=== PATIENT | male | born 1975 | race Two or more races ===

== ENCOUNTER 2021-03-12 07:44 | Emergency (ER) | payer MEDICAID, SELFPAY ==
[2021-03-12] VITALS (15 sets, daily range): BP systolic 138–189; BP diastolic 91–131; PULSE 52–112; RESP 16–20; TEMP 36.4–36.6; O2SAT 95–100; BMI 32.5
--- NOTE | 2021-03-12 | ECG_ITS ---
Test Reason : cp/sob Blood Pressure : / mmHG Vent. Rate : 119 BPM Atrial Rate : 119 BPM P-R Int : 154 ms QRS Dur : 088 ms QT Int : 320 ms P-R-T Axes : 062 022 088 degrees QTc Int : 450 ms Sinus tachycardia with occasional Premature ventricular complexes Biatrial enlargement T wave abnormality, consider lateral ischemia Abnormal ECG No previous ECGs available Referred By: Generic ED Physician Electronically Signed By:MOY SALDAÑA MD
--- NOTE | ~2021-03-12 | CT_ITS ---
EXAMINATION: CT ANGIOGRAM OF THE CHEST WITH AND WITHOUT CONTRAST (CT PULMONARY ANGIOGRAM FOR PE) CLINICAL INFORMATION: Reason for Exam SOB, elevated D-dimer COMPARISON: None TECHNIQUE: Prior to contrast administration, noncontrast localization images were obtained. Subsequently, multidetector volumetric imaging was performed from the thoracic inlet to below the diaphragms following the administration of 80 mL Omnipaque 350 intravenous contrast. No contrast reaction reported Sagittal, coronal, and MIP oblique sagittal reformatted images were obtained on the CT workstation, uploaded to PACS, and reviewed. This CT examination was performed using dose optimization techniques as appropriate, variously including the following: *Automated exposure control *Adjustment of mA and/or kV according to patient size (this includes techniques or standardized protocols for targeted exams where dose is matched to indication/reason for exam; i.e. extremities or head) *Use of iterative reconstruction technique Total exam dose-length product 442 mGy-cm FINDINGS: QUALITY OF STUDY/CONTRAST BOLUS: Satisfactory. PULMONARY ARTERIES: No central or segmental pulmonary emboli. THORACIC AORTA: No aneurysm or dissection. LUNG: The lungs are expanded with patchy groundglass attenuation changes in both dependent lower lobes, right middle lobe and lingular segments and slightly nodular groundglass densities in both upper lobes. No acute consolidation seen.. PLEURA: There is bilateral posterior pleural thickening.. MEDIASTINUM: Heart size is normal. Great vessels are normal caliber. There is no pericardial effusion. Central trachea and the bronchi widely patent. There are subcarinal ill-defined hypodense areas likely inflammatory lymph nodes similar lymph nodes are seen in the left para-aortic space which appear more matted. No evidence of septal bowing or right heart strain. CHEST WALL/AXILLA: There are small shotty axillary lymph nodes. OSSEOUS STRUCTURES: No aggressive lytic or sclerotic process seen. UPPER ABDOMEN: Visualized liver, spleen, pancreas and bilateral adrenal glands are unremarkable. No reflux of contrast into the hepatic veins to suggest elevated right heart pressures. CT/CT angio chest PE protocol IMPRESSION: No evidence of PE. No evidence of aortic dissection. Diffuse bilateral groundglass attenuation changes with nodules suggestive of inflammatory or infectious etiology. There are inflammatory matted lymph nodes in the subcarinal and left para-aortic space. There is bilateral posterior pleural thickening. VTE: negative.
--- NOTE | ~2021-03-12 | XR_ITS ---
EXAMINATION: XR CHEST CLINICAL INFORMATION: Cough, SOB. COMPARISON: Chest TECHNIQUE: Frontal view of the chest was obtained. FINDINGS: The lungs are well-expanded without acute pneumonic consolidation. There is increased bilateral parahilar markings likely interstitial edema or pneumonitis. The heart size is normal. There is increased pulmonary vascularity suggesting mild CHF. No gross bony abnormality seen. XR/XR chest 1V IMPRESSION: There is increased bilateral parahilar markings likely interstitial edema or pneumonitis.
--- NOTE | 2021-03-12 08:27 | ED_ITS ---
HPI - Chest Pain General Chief Complaint: Upper Respiratory Symptoms Stated Complaint: sob, chest pain Time Seen by Provider: 03/12/21 08:25 Source: patient Mode of arrival: ambulatory Limitations: no limitations History of Present Illness HPI narrative: This is a 45-year-old male with no known medical history prese nting to the emergency department with complaints of chest pain, palpitations, shortness of breath X 1 week and recent upper respiratory infection about a week ago. Patient tells me that since his cold went away he has been experiencing chest pain/tightness localized to the substernal region, it does not radiate, it is severe in nature. He also reports intermittent palpitations, he tells me he is unable to quantify how long these palpitations last, he tells me it varies. He also reports associated shortness of breath, and a dry cough. He tells me that he is recovering from a cold. Chest pain is worse with lying down, better sitting up. Patient has not taken anything for the symptoms. He is vaccinated against COVID-19. He denies weakness, nausea, vomiting, abdominal pain, vision changes, headache, fevers and chills. MD complaint: chest pain and chest heaviness Onset (ago): week(s) (1) Timing of current episode: episodic Prior episodes: No Onset: during rest Pain location: substernal Pain radiation: none Severity: severe Quality: tightness and heaviness Relieving factors: leaning forward Exacerbating factors: other (laying supine ) Context: recent illness Associated symptoms: dyspnea, palpitations and cough Treatment prior to arrival: none Related Data Allergies Allergy/AdvReac Type Severity Reaction Status Date / Time No Known Allergies Allergy Unverified 12/16/19 16:31 [No Known Allergies*] Review of Systems Review of Systems: Constitutional : No Weight loss, No Fever, No Chills ENT/Mouth :? No sore throat, No Rhinorrhea Eyes: No Eye Pain, No Swelling Cardiovascular : + Chest Pain, + SOB, no Dyspnea on Exertion, No Orthopnea, No Edema, + Palpitations Respiratory : + Cough, No Sputum Gastrointestinal : pos Nausea, No Vomiting, No Diarrhea, No abdominal Pain, No Hematochezia, No Melena Genitourinary : No Dysuria, No Urinary Frequency Musculoskeletal : No joint pain, No Myalgias, No Joint Swelling Skin : No Skin Lesions, No rash Neuro : No Weakness, No Numbness, No Dizziness, No Headache Psych : No Anxiety/Panic, No Depression All other systems reviewed and are negative Yes all other systems are reviewed and are negative [facility] Past Medical History Attestation statement: The following information was validated with the patient. Source: old records reviewed and nursing notes reviewed Social History Social History Advance Directives: No Advance Directives Information Provided: No Physical Exam Vital Signs: Vital Signs: Last Vital Signs Temp 97.6 F 03/12/21 12:06 Pulse 89 03/12/21 12:06 Resp 19 03/12/21 12:06 BP 182/122 H 03/12/21 12:06 Pulse Ox 97 03/12/21 12:06 BMI result Body Mass Index 32.5 Vital signs significant for hypertension, tachycardia. Appearance: Alert.? Oriented X3.? No acute distress.?Patient appears anxious Head: Normocephalic, atraumatic, no step-offs or deformities Eyes: Pupils equal, round and reactive to light.? ENT: Pharynx normal.? Neck: Normal inspection.? Neck supple.? CVS: + rapid rate regular rythem? Pulses normal.? Respiratory: No respiratory distress.? Breath sounds normal.? Abdomen: Soft and nontender.? Skin: Skin warm and dry.? Normal skin color.? Normal skin turgor.? Extremities: No lower extremity edema.? No calf ttp. 5/5 strength to bilateral upper and lower extremities Back: No midline tenderness, no C-spine tenderness, full range of motion, no CVA tenderness bilaterally Neuro: Oriented X 3.? No motor deficit.? No sensory deficit. Course Reevaluation(s) Reevaluation #1: CBC shows no leukocytosis, a slight anemia is noted. D-dimers noted to be slightly elevated, is CTA will be done to rule out pulmonary embolism. Patient's transaminases noted to be elevated slightly. Troponin 64.7, a 2nd troponin will be ordered at 12 noon. UA is clean. COVID negative. Urine toxicology pending I wiill give patient asa. Time: 09:45 Reevaluation #2: Patient urine toxicology positive for marijuana and cocaine. Time: 10:37 Reevaluation #3: Patient's troponin noted to still be elevated. I reached out to and discussed the case with him, he says this is likely peric arditis. He suggested giving 50 mg of indomethacin, adding inflammatory markers, and medicating with morphine. I have also ordered a cardiac echo at his request. I will put in a consult for Cardiology. I plan to admit this patient to the hospitalist team Time: 13:09 Additional Reevaluation(s): 1344 Due to the ground-glass opacities seen on CTA will give patient 1 g of Rocephin. Patient's CRP is also noted to be markedly elevated at 1.76. 1410 will be admitting patient. Pending echo and ESR MDM - Chest Pain MDM Narrative Medical decision making narrative: 36 45-year-old male no known medical history presents to the emergency department with intermittent chest pain, shortness of breath and dry cough x1 week. Patient reports that he had a ?cold ?about a week ago, and then the symptoms started. He tells me chest pain is better leaning forward, worse lying supine. Denies fevers or chills. No cardiac history. No family cardiac history. Upon physical examination there is a rapid regular rhythm noted, likely sinus tachycardia. Lungs are clear. Abdomen soft nontender nondistended. No focal neuro deficits. Plan at this time is to obtain basic labs, a D-dimer, troponin, UA, chest x-ray, COVID. Will continuously monitor his cardiac rhythm. He will be given Toradol for pain, and Ativan as he appears very anxious. I will rule out ACS, PE. I suspect that this is pericarditis. Medical Records Data Attestation: I reviewed the patient's medical records. Lab Data Attestation: I reviewed the patient's lab results. Result diagrams: 03/12/21 09:00 03/12/21 09:00 Labs: Lab Results 03/12/21 03/12/21 03/12/21 Range/Units 09:00 09:00 09:00 WBC 8.0 (4.8-10.8) X10*3/uL RBC 4.22 L (4.60-5.80) X10*6/uL Hgb 12.8 L (14.0-18.0) g/dl Hct 40.1 L (42.0-52.0) % MCV 95.0 (80.0-98.0) fL MCH 30.3 (27.0-33.0) pg MCHC 31.9 (31.0-36.0) g/dl RDW 13.2 (11.0-16.0) % Plt Count 254 (160-400) X10*3/uL MPV 10.5 (9.4-12.4) fL Immature Gran % (Auto) 0.2 (0.0-0.4) % Neut % (Auto) 66.8 (45-73) % Lymph % (Auto) 21.2 (20-40) % Garrard % (Auto) 6.5 (2-11) % Eos % (Auto) 4.4 H (0-4) % Baso % (Auto) 0.9 (0-2) % Lymph # (Auto) 1.7 (1.2-4.9) X10*3/uL Garrard # (Auto) 0.5 (0.1-1.2) X10*3/uL Eos # (Auto) 0.4 (0.0-0.4) X10*3/uL Baso # (Auto) 0.1 (0.0-0.2) X10*3/uL Abs Immat Gran (auto) 0.02 (0.00-0.03) X10*3/uL Absolute Neuts (auto) 5.4 (2.0-8.3) x10*3/uL Absolute Nucleated RBC 0.000 (0.0-0.012) X10*3/uL Nucleated RBC % (auto) 0.0 (0.0-0.2) /100WBC ESR 13 (0-15) MM/HR D-Dimer High Sensitivty NG/ML Sodium 142 (135-145) mmol/L Potassium 3.7 (3.3-5.1) mmol/L Chloride 106 (96-108) mmol/L Carbon Dioxide 29 (22-29) mmol/L Anion Gap 11 L (12-20) BUN 13 (9-16) mg/dL Creatinine 1.36 (0.5-1.4) mg/dL Estim Creat Clear Calc 89.2 Estimated GFR 57 Random Glucose 107 (60-115) mg/dL Calcium 9.4 (8.4-10.2) mg/dL Magnesium 1.9 (1.6-2.6) mg/dL Total Bilirubin 0.4 (0.0-1.0) mg/dL AST 69 H (5-37) U/L ALT 42 H (0-40) U/L Alkaline Phosphatase 100 (39-117) U/L Troponin I High Sens (<3.5-35.0) ng/L C-Reactive Protein 1.76 H (< or = 0.50) mg/dL Total Protein 6.6 (6.5-8.0) g/dL Albumin 3.8 (3.5-5.0) g/dL Urine Color Urine Appearance Urine pH (5.0-8.0) Ur Specific Wenham (1.005-1.025) Urine Protein (NEG-TRACE) MG/DL Urine Glucose (UA) (NEG) MG/DL Urine Ketones (NEG) MG/DL Urine Blood (NEG) Urine Nitrite (NEG) Ur Leukocyte Esterase (NEG) Urine Opiates Screen (Not Detect) Urine Fentanyl Screen (Not Detect) Ur Barbiturates Screen (Not Detect) Ur Phencyclidine Scrn (Not Detect) Ur Amphetamines Screen (Not Detect) U Benzodiazepines Scrn (Not Detect) Urine Cocaine Screen (Not Detect) U Marijuana (THC) Screen (Not Detect) COVID-19 (GALE) (Negative) COVID-19 Clin Com 03/12/21 03/12/21 03/12/21 Range/Units 09:01 09:01 09:01 WBC (4.8-10.8) X10*3/uL RBC (4.60-5.80) X10*6/uL Hgb (14.0-18.0) g/dl Hct (42.0-52.0) % MCV (80.0-98.0) fL MCH (27.0-33.0) pg MCHC (31.0-36.0) g/dl RDW (11.0-16.0) % Plt Count (160-400) X10*3/uL MPV (9.4-12.4) fL Immature Gran % (Auto) (0.0-0.4) % Neut % (Auto) (45-73) % Lymph % (Auto) (20-40) % Garrard % (Auto) (2-11) % Eos % (Auto) (0-4) % Baso % (Auto) (0-2) % Lymph # (Auto) (1.2-4.9) X10*3/uL Garrard # (Auto) (0.1-1.2) X10*3/uL Eos # (Auto) (0.0-0.4) X10*3/uL Baso # (Auto) (0.0-0.2) X10*3/uL Abs Immat Gran (auto) (0.00-0.03) X10*3/uL Absolute Neuts (auto) (2.0-8.3) x10*3/uL Absolute Nucleated RBC (0.0-0.012) X10*3/uL Nucleated RBC % (auto) (0.0-0.2) /100WBC ESR (0-15) MM/HR D-Dimer High Sensitivty 303 NG/ML Sodium (135-145) mmol/L Potassium (3.3-5.1) mmol/L Chloride (96-108) mmol/L Carbon Dioxide (22-29) mmol/L Anion Gap (12-20) BUN (9-16) mg/dL Creatinine (0.5-1.4) mg/dL Estim Creat Clear Calc Estimated GFR Random Glucose (60-115) mg/dL Calcium (8.4-10.2) mg/dL Magnesium (1.6-2.6) mg/dL Total Bilirubin (0.0-1.0) mg/dL AST (5-37) U/L ALT (0-40) U/L Alkaline Phosphatase (39-117) U/L Troponin I High Sens (<3.5-35.0) ng/L C-Reactive Protein (< or = 0.50) mg/dL Total Protein (6.5-8.0) g/dL Albumin (3.5-5.0) g/dL Urine Color STRAW Urine Appearance CLEAR Urine pH 6.0 (5.0-8.0) Ur Specific Wenham <= 1.005 (1.005-1.025) Urine Protein NEG (NEG-TRACE) MG/DL Urine Glucose (UA) NEG (NEG) MG/DL Urine Ketones NEG (NEG) MG/DL Urine Blood NEG (NEG) Urine Nitrite NEG (NEG) Ur Leukocyte Esterase NEG (NEG) Urine Opiates Screen (Not Detect) Urine Fentanyl Screen (Not Detect) Ur Barbiturates Screen (Not Detect) Ur Phencyclidine Scrn (Not Detect) Ur Amphetamines Screen (Not Detect) U Benzodiazepines Scrn (Not Detect) Urine Cocaine Screen (Not Detect) U Marijuana (THC) Screen (Not Detect) COVID-19 (GALE) Negative (Negative) COVID-19 Clin Com See Note 03/12/21 03/12/21 03/12/21 Range/Units 09:06 10:13 12:24 WBC (4.8-10.8) X10*3/uL RBC (4.60-5.80) X10*6/uL Hgb (14.0-18.0) g/dl Hct (42.0-52.0) % MCV (80.0-98.0) fL MCH (27.0-33.0) pg MCHC (31.0-36.0) g/dl RDW (11.0-16.0) % Plt Count (160-400) X10*3/uL MPV (9.4-12.4) fL Immature Gran % (Auto) (0.0-0.4) % Neut % (Auto) (45-73) % Lymph % (Auto) (20-40) % Garrard % (Auto) (2-11) % Eos % (Auto) (0-4) % Baso % (Auto) (0-2) % Lymph # (Auto) (1.2-4.9) X10*3/uL Garrard # (Auto) (0.1-1.2) X10*3/uL Eos # (Auto) (0.0-0.4) X10*3/uL Baso # (Auto) (0.0-0.2) X10*3/uL Abs Immat Gran (auto) (0.00-0.03) X10*3/uL Absolute Neuts (auto) (2.0-8.3) x10*3/uL Absolute Nucleated RBC (0.0-0.012) X10*3/uL Nucleated RBC % (auto) (0.0-0.2) /100WBC ESR (0-15) MM/HR D-Dimer High Sensitivty NG/ML Sodium (135-145) mmol/L Potassium (3.3-5.1) mmol/L Chloride (96-108) mmol/L Carbon Dioxide (22-29) mmol/L Anion Gap (12-20) BUN (9-16) mg/dL Creatinine (0.5-1.4) mg/dL Estim Creat Clear Calc Estimated GFR Random Glucose (60-115) mg/dL Calcium (8.4-10.2) mg/dL Magnesium (1.6-2.6) mg/dL Total Bilirubin (0.0-1.0) mg/dL AST (5-37) U/L ALT (0-40) U/L Alkaline Phosphatase (39-117) U/L Troponin I High Sens 64.7 H 69.4 H (<3.5-35.0) ng/L C-Reactive Protein (< or = 0.50) mg/dL Total Protein (6.5-8.0) g/dL Albumin (3.5-5.0) g/dL Urine Color Urine Appearance Urine pH (5.0-8.0) Ur Specific Wenham (1.005-1.025) Urine Protein (NEG-TRACE) MG/DL Urine Glucose (UA) (NEG) MG/DL Urine Ketones (NEG) MG/DL Urine Blood (NEG) Urine Nitrite (NEG) Ur Leukocyte Esterase (NEG) Urine Opiates Screen Not Detected (Not Detect) Urine Fentanyl Screen Not Detected (Not Detect) Ur Barbiturates Screen Not Detected (Not Detect) Ur Phencyclidine Scrn Not Detected (Not Detect) Ur Amphetamines Screen Not Detected (Not Detect) U Benzodiazepines Scrn Not Detected (Not Detect) Urine Cocaine Screen POSITIVE H (Not Detect) U Marijuana (THC) Screen POSITIVE H (Not Detect) COVID-19 ([facility]ALE) (Negative) COVID-19 Clin Com Imaging Data Chest x-ray: Attestation: I personally reviewed and interpreted this imaging study as follows: Radiologist's impression: FINDINGS: The lungs are well-expanded without acute pneumonic consolidation. There is increased bilateral parahilar markings likely interstitial edema or pneumonitis. The heart size is normal. There is increased pulmonary vascularity suggesting mild CHF. No gross bony abnormality seen. XR/XR chest 1V IMPRESSION: There is increased bilateral parahilar markings likely interstitial edema or pneumonitis. ? CTA: Attestation: I personally reviewed and interpreted this imaging study as follows: Radiologist's impression: CT/CT angio chest PE protocol IMPRESSION: No evidence of PE. No evidence of aortic dissection. ? Diffuse bilateral groundglass attenuation changes with nodules suggestive of inflammatory or infectious etiology. ? There are inflammatory matted lymph nodes in the subcarinal and left para-aortic space. There is bilateral posterior pleural thickening. ? VTE: negative. ECG Data ECG #1: Attestation: I personally reviewed and interpreted this ECG as follows: ECG interpretation date: 03/12/21 ECG interpretation time: 07:50 Prior ECG tracings: available for review Interpretation: Ventricular rate of 119, AK normal, QRS normal, QT/QTC normal EKG shows a sinus tachycardia with occasional PVCs. No ST elevations or inversions concerning for ischemia. No acute ischemia. No previous EKGs to compare with. Critical Care Time Critical Care Time Critical Care Time: Yes Total Critical Care Time: 45 Attestation: I attest to this time spent taking care of the patient, reviewing labs, imaging, discussing this case with attending, discussing case with Cardiology, coming up with a treatment plan, physical exam and history taking. Discharge Plan Discharge Clinical Impression: Pericarditis, Elevated troponin Patient Disposition: Admitted As Inpatient Instructions: Acute Pericarditis (ED) Additional Instructions: Take your medications as prescribed. Follow-up with your primary care provider this week. Return to the emergency department with new or worsening symptoms. In case of emergency call 911 Referrals: Lopez Dominguez MD [Primary Care Provider] - 2 days Stand Alone Forms: Work/School Release
[2021-03-12] MEDS: Ketorolac Tromethamine 30 MG/ML VIAL IM (08:47)
[2021-03-12] MEDS: LORazepam 0.5 MG TABLET PO (08:47)
[2021-03-12 09:06] LABS: MANUAL DIFF FLAG NO
[2021-03-12 09:11] LABS: Appearance Urine CLEAR; Color Urine STRAW; Glucose Urine UA NEG (NEG); Leukocyte Esterase Urine NEG (NEG); Nitrite Urine NEG (NEG); Specific Gravity - Urine <= 1.005 (1.005-1.025); Urine Blood NEG (NEG); Urine Ketones NEG (NEG); Urine Protein NEG (NEG-TRACE)
[2021-03-12 09:14] LABS: Basophils Absolute Auto 0.1 X10*3/uL (0.0-0.2); Basophils Percent Auto 0.9 % (0-2); Eosinophils Absolute Auto 0.4 X10*3/uL (0.0-0.4); Eosinophils Percent Auto 4.4 % (0-4); Hematocrit 40.1 % (42.0-52.0); Hemoglobin 12.8 g/dl (14.0-18.0); Imm Gran Abs Auto 0.02 X10*3/uL (0.00-0.03); Imm Gran Pct Auto 0.2 % (0.0-0.4); Lymphocytes Absolute Auto 1.7 X10*3/uL (1.2-4.9); Lymphocytes Percent Auto 21.2 % (20-40); Mean Corpuscular HGB Conc 31.9 g/dl (31.0-36.0); Mean Corpuscular Hemoglobin 30.3 pg (27.0-33.0); Mean Platelet Volume 10.5 fL (9.4-12.4); Monocytes Absolute Auto 0.5 X10*3/uL (0.1-1.2); Monocytes Percent Auto 6.5 % (2-11); Neutrophils Absolute Auto 5.4 x10*3/uL (2.0-8.3); Neutrophils Percent Auto 66.8 % (45-73); Platelet Count 254 X10*3/uL (160-400); Red Blood Count 4.22 X10*6/uL (4.60-5.80); Red Cell Distribution Width 13.2 % (11.0-16.0)
[2021-03-12 09:17] LABS: D Dimer High Sensitivity 303 NG/ML
[2021-03-12 09:25] LABS: Alanine Aminotransferase 42 U/L (0-40); Albumin Level 3.8 g/dL (3.5-5.0); Alkaline Phosphatase 100 U/L (39-117); Anion Gap 11 (12-20); Aspartate Amino Transferase 69 U/L (5-37); Bilirubin Total 0.4 mg/dL (0.0-1.0); Blood Urea Nitrogen 13 mg/dL (9-16); Calcium 9.4 mg/dL (8.4-10.2); Carbon Dioxide 29 mmol/L (22-29); Chloride 106 mmol/L (96-108); Creatinine Clr Calc Pharmacy 89.2; Estimated Glomerular Filt Rate 57; Glucose Random 107 mg/dL (60-115); Magnesium 1.9 mg/dL (1.6-2.6); Potassium 3.7 mmol/L (3.3-5.1); Sodium 142 mmol/L (135-145); Total Protein 6.6 g/dL (6.5-8.0)
[2021-03-12 09:29] LABS: COVID-19 Test Negative (Negative); IDNOW Serial# 9DD0AD1C
[2021-03-12 09:32] LABS: Troponin-I High Sensitivity 64.7 ng/L (<3.5-35.0)
[2021-03-12 10:34] LABS: Amphetamine Screen Urine Not Detected (Not Detect); Barbiturates, Urine Not Detected (Not Detect); Benzodiazepines Screen Urine Not Detected (Not Detect); Cannabinoid Screen Urine POSITIVE (Not Detect); Cocaine Screen Urine POSITIVE (Not Detect); Fentanyl, urine Not Detected (Not Detect); Opiate Screen Urine Not Detected (Not Detect); Phencyclidine Screen Urine Not Detected (Not Detect)
[2021-03-12] MEDS: iohexoL 350 MG/ML 75 ML INFUS..BTL 65 ML IV (11:33)
[2021-03-12] MEDS: Aspirin Enteric Coated 325 MG TABLET.DR PO (12:02)
[2021-03-12 12:53] LABS: Troponin-I High Sensitivity 69.4 ng/L (<3.5-35.0)
--- NOTE | 2021-03-12 13:05 | CA_ITS ---
Transthoracic Echocardiogram Patient (Last, First, Middle): Kun Ferrara G Gender: Male Date of : 1975 Age: 45 Procedure Date: 03/12/2021 Procedure Type: Transthoracic E[place]ocardiogram [place] [facility] [place]: 182.88 cm Weight: 108.86 kg BSA: 2.30 m2 Heart Rate: bpm BP: 182 / 122 mmHg It Support Engineer: Referring MD: Krupa GUSTAFSON Spray Stainer: Petr Gaxiola MD Symptoms: Chest pain, SOB Study Quality: Good ECG Rhythm: Sinus Conclusions: - 1. Severely reduced LV systolic function with LVEF of 20-25% with pseudonormal filling pattern with mild LVH with akinesis of the inferior wall 2. Moderately dilated left atrium 3. Normal calculated RV systolic pressure with elevated right atrial pressures 4. No gross pericardial effusion Findings Left Ventricle Normal left ventricular cavity size. There is mildly increased left ventricular wall thickness. The left ventricular systolic function is severely decreased. The visually estimated ejection fraction is between 20 25%. Spectral Doppler is indicative of a pseudonormal filling pattern. E/E prime ratio is between 8 and 15 consistent with indeterminate filling pressures. Wall Motion Rest Echo Findings The anterior wall, entire septum, entire lateral wall, and apex segment are hypokinetic. The inferior wall is akinetic. Right Ventricle Moderately increased right ventricular cavity size. There is borderline right ventricular systolic function. Atria The left atrium is moderately dilated. Interatrial shunt cannot be excluded. The right atrium is mildly dilated. Aortic Valve Normal aortic valve structure and function. There is no aortic valve stenosis. There is no aortic valve regurgitation. Mitral Valve Normal mitral valve structure and function. There is trace mitral valve regurgitation. There is no mitral valve stenosis. Pulmonic Valve The pulmonic valve was not well visualized. Prior Study Comparison No prior study available for comparison. Measurements 2D Linear Measurements IVSd: 1.25 0.6-0.9/0.6-1.0 cm LVIDd: 6.01 3.9-5.3/4.2-5.9 cm LVIDd Index: 2.61 2.4-3.2/2.2-3.1 cm/m2 LVIDs: 5.28 2.0-3.6 cm LVPWd: 1.30 0.7-1.1 cm Ao Root: 3.30 2.1-3.5 cm LA Diam: 4.90 2.7-3.8/3.0-4.0 cm LAIDs Index: 2.13 1.5-2.3 cm/m2 LV Mass: 426.55 67-162/88-224 g LV Mass Index: 185.45 43-95/49-115 g/m2 LVOT Diam: 2.30 3.0+(-)1.3 cm 2D Systolic Function EF 4C: 21.20 >55% EF 2C: 27.00 >55% EF BiP: 24.00 >55% Mitral Valve MV Pk E: 0.96 MV Decel Time: 106.00 E'Lateral: 9.25 E'Medial: 8.49 E/E' Med: 11.40 E/E' Lat: 10.40 PHT: 31.00 MVA PHT: 7.10 Decel [place]: 9.09 Aortic Valve AoV Pk Shaw: 1.06 AoV Mn Shaw: 0.77 AoV VTI: 0.18 AoV Pk Grad: 4.00 Aov Mn Grad: 3.00 RIZWAN Cont.VTI: 1.94 LVOT LVOT Pk Shaw: 0.55 LVOT Mn Shaw: 0.35 LVOT VTI: 0.08 LVOT Pk Grad: 1.00 LVOT Mn Grad: 1.00 LVOT Diam: 2.30 LVOT Area: 4.15 Diastolic Function MV Pk E: 0.96 E'Medial: 8.49 E/E' Med: 11.40 E' Laterial: 9.25 E/E' Lat: 10.40 Right Ventricle TAPSE (mm): 29.00 TVS' Shaw: 11.00 Tricuspid Valve TR Pk Shaw: 1.80 TR Pk Grad: 13.00 RA Press: 8.00 RVSP: 21.00 Great Vessels Aorta Ao Root-2D: 3.30 2.0-3.7 cm Ao Asc: 3.70 2.1-3.4 cm Pulmonary Valve PV Pk Shaw: 1.05 Peak PV Grad: 4.00 Updated in Other Vendor System with Status of Final Petr Gaxiola MD electronically signed on 03/12/2021 6:28:05 PM with status of Final
[2021-03-12 13:30] LABS: C Reactive Protein 1.76 mg/dL (< or = 0.50)
[2021-03-12 14:01] LABS: Erythrocyte Sedimentation Rate 13 MM/HR (0-15)
--- NOTE | 2021-03-12 14:58 | PM.IMHP ---
History of Present Illness Date of Service: 03/12/21 Chief Complaint: chest pain, sob 45M presented with chest pain and sob. patient had been feeling well until about 2 weeks ptp. at that time he developed upper respiratory symptoms, congestion, cough. he was tested for covid and was negative (he is vaccinated). patient then started to notice sob worse on exertion, +orthopnea. he also had a positional midsternal chest tightness, non radiating, worse on lying down, improved by sitting. symptoms progressed so he came to ED. patient denies fever, chills, n/v/d. Review of Systems Review of Systems: Constitutional: Denies fever, denies Chills Eyes: denies blurry vision ENT: denies sore throat CVS: chest pain Respiratory: dyspnea GI: no abdominal pain : denies dysuria MSK: denies neck pain Skin: denies rash Neuro: denies specific motor weakness Psych: denies suicidal ideation Endocrine: denies heat/cold intolerance Hematologic: denies easy bleeding Allergy: denies hives PMFSH Pertinent family history: denies CAD, DM in family Social History (Updated 03/12/21 @ 15:02 by Juan F Loomis MD) Alcohol intake: current Patient Tobacco Use Status: Current everyday Tobacco user Substance Use Type: Crack/Cocaine and Marijuana Advance Directives: No Advance Directives Information Provided: No Meds Allergies Allergy/AdvReac Type Severity Reaction Status Date / Time No Known Allergies Allergy Unverified 12/16/19 16:31 [No Known Allergies*] Active Medications: Current Medications Pharmacy Consult (Consult Rx Perform Med Rec) 1 each MISCELLANE ONCE PRN PRN Reason: Consult order Physical Exam Vital Signs and Narrative: Vital Signs: Last Vital Signs Temp 97.6 F 03/12/21 12:06 Pulse 89 03/12/21 12:06 Resp 19 03/12/21 12:06 BP 182/122 H 03/12/21 12:06 Pulse Ox 97 03/12/21 12:06 BMI result Body Mass Index 32.5 General: no acute distress HEENT: atraumatic Neck: normal to visual inspection CVS: S1, S2, RRR Resp: CTA bilateral Chest: non tender GI: soft, non tender, non distended : no CVA tenderness Skin: no rashes Extremities: no edema Neuro: Oriented X3, grossly intact Psych: cooperative Results Labs CBC and Chem 7: 03/12/21 09:00 03/12/21 09:00 Labs: Laboratory Results - last 24 hr 03/12/21 03/12/21 03/12/21 09:00 09:00 09:00 MCV 95.0 MCH 30.3 MCHC 31.9 RDW 13.2 Plt Count 254 MPV 10.5 Immature Gran % (Auto) 0.2 Neut % (Auto) 66.8 Lymph % (Auto) 21.2 [place] % (Auto) 6.5 Eos % (Auto) 4.4 H Baso % (Auto) 0.9 Lymph # (Auto) 1.7 [place] # (Auto) 0.5 Eos # (Auto) 0.4 Baso # (Auto) 0.1 Abs Immat Gran (auto) 0.02 Absolute Neuts (auto) 5.4 Absolute Nucleated RBC 0.000 Nucleated RBC % (auto) 0.0 ESR 13 D-Dimer High Sensitivty Anion Gap 11 L Creatinine 1.36 Estim Creat Clear Calc 89.2 Estimated GFR 57 Random Glucose 107 Calcium 9.4 Magnesium 1.9 Total Bilirubin 0.4 AST 69 H ALT 42 H Alkaline Phosphatase 100 Troponin I High Sens C-Reactive Protein 1.76 H Total Protein 6.6 Albumin 3.8 Urine Color Urine Appearance Urine pH Ur Specific [place] Urine Protein Urine Glucose (UA) Urine Ketones Urine Blood Urine Nitrite Ur Leukocyte Esterase Urine Opiates Screen Urine Fentanyl Screen Ur Barbiturates Screen Ur Phencyclidine Scrn Ur Amphetamines Screen U Benzodiazepines Scrn Urine Cocaine Screen U Marijuana (THC) Screen COVID-19 ([facility]) COVID-19 Clin Com 03/12/21 03/12/21 03/12/21 09:01 09:01 09:01 MCV MCH MCHC RDW Plt Count MPV Immature Gran % (Auto) Neut % (Auto) Lymph % (Auto) [place] % (Auto) Eos % (Auto) Baso % (Auto) Lymph # (Auto) [place] # (Auto) Eos # (Auto) Baso # (Auto) Abs Immat Gran (auto) Absolute Neuts (auto) Absolute Nucleated RBC Nucleated RBC % (auto) ESR D-Dimer High Sensitivty 303 Anion Gap Creatinine Estim Creat Clear Calc Estimated GFR Random Glucose Calcium Magnesium Total Bilirubin AST ALT Alkaline Phosphatase Troponin I High Sens C-Reactive Protein Total Protein Albumin Urine Color STRAW Urine Appearance CLEAR Urine pH 6.0 Ur Specific [place] <= 1.005 Urine Protein NEG Urine Glucose (UA) NEG Urine Ketones NEG Urine Blood NEG Urine Nitrite NEG Ur Leukocyte Esterase NEG Urine Opiates Screen Urine Fentanyl Screen Ur Barbiturates Screen Ur Phencyclidine Scrn Ur Amphetamines Screen U Benzodiazepines Scrn Urine Cocaine Screen U Marijuana (THC) Screen COVID-19 ([facility]) Negative COVID-19 Clin Com See Note 03/12/21 03/12/21 03/12/21 09:06 10:13 12:24 MCV MCH MCHC RDW Plt Count MPV Immature Gran % (Auto) Neut % (Auto) Lymph % (Auto) [place] % (Auto) Eos % (Auto) Baso % (Auto) Lymph # (Auto) [place] # (Auto) Eos # (Auto) Baso # (Auto) Abs Immat Gran (auto) Absolute Neuts (auto) Absolute Nucleated RBC Nucleated RBC % (auto) ESR D-Dimer High Sensitivty Anion Gap Creatinine Estim Creat Clear Calc Estimated GFR Random Glucose Calcium Magnesium Total Bilirubin AST ALT Alkaline Phosphatase Troponin I High Sens 64.7 H 69.4 H C-Reactive Protein Total Protein Albumin Urine Color Urine Appearance Urine pH Ur Specific [place] Urine Protein Urine Glucose (UA) Urine Ketones Urine Blood Urine Nitrite Ur Leukocyte Esterase Urine Opiates Screen Not Detected Urine Fentanyl Screen Not Detected Ur Barbiturates Screen Not Detected Ur Phencyclidine Scrn Not Detected Ur Amphetamines Screen Not Detected U Benzodiazepines Scrn Not Detected Urine Cocaine Screen POSITIVE H U Marijuana (THC) Screen POSITIVE H COVID-19 ([facility]) COVID-19 Clin Com Imaging Radiologist's Impressions: Impressions Chest X-Ray 03/12/21 08:44 IMPRESSION: There is increased bilateral parahilar markings likely interstitial edema or pneumonitis. Chest CTA 03/12/21 11:30 IMPRESSION: No evidence of PE. No evidence of aortic dissection. Diffuse bilateral groundglass attenuation changes with nodules suggestive of inflammatory or infectious etiology. There are inflammatory matted lymph nodes in the subcarinal and left para-aortic space. There is bilateral posterior pleural thickening. VTE: negative. Assessment and Plan (1) Pericarditis: Status: Acute 45M presented with chest pain and sob pericarditis with dilated cardiomyopathy follow up official echo report cardio eval indocin, colchicine gi prophylaxis smoking, cocaine cessation Quality Stroke Does the patient have a stroke diagnosis?: No VTE Prior VTE?: No VTE Risk Level:: Medical - moderate - high VTE Device Contraindication: Treatment Not Indicated VTE Drug Contraindication: N/A - Med Ordered
[2021-03-12] MEDS: cefTRIAXone sodium 1 GM in 0.9 % Sodium Chloride 50 ML IV (15:24)
[2021-03-12] MEDS: Morphine Sulfate 4 MG/ML CARTRIDGE IVPUSH (15:26)
[2021-03-12] MEDS: hydrALAZINE HCl 20 MG/ML VIAL 10 MG IVPUSH ×2 (15:26→18:09)
[2021-03-12] MEDS: Nitroglycerin 2 % Oint 1 GM Packet 1 INCH TRANSDERMA (15:27)
[2021-03-12] MEDS: Furosemide 40 MG/4 ML VIAL IVPUSH (15:27)
--- NOTE | 2021-03-12 15:58 | PM.CNCAR ---
History of Present Illness History of Present Illness Date of Service: 03/12/21 Requesting physician: Kelle Fernandez Consult reason: chest pain Chief complaint: Hypertension, pulmonary edema, cardiomyopathy Narrative: I was requested to see Kun urgently in cardiology consultation today as he presented with symptoms of chest pain and inability to breathe when lying down. Patient is a 45-year-old male with no significant past medical history as per him. He says usually checks blood pressure intermittently in [facility] or pharmacy such as that and blood pressure is usually well controlled. He is in generally good shape up to 2 weeks ago he was fine when he developed a common cold. Following that a week after that started developing retrosternal chest pressure associated with shortness of breath. He also says he cannot lay flat in the bed at he would get short of breath and then get pressure in his chest. Yesterday he went to work [employer] and said he could not breathe and had significant chest tightness and therefore decided come to the emergency room as he says he has never felt like this before. He said he came [employer]. Since then he has been emergency room. His blood pressure been significantly elevated 180/120. No treatment has been provided to him for the same. Those concerned about pericarditis with the symptoms. His CRP is mildly elevated. He had a workup with a CT of the chest which showed no evidence of pulmonary embolism or thoracic aortic dissection. Shows bilateral ground-glass opacities. Chest x-ray suggestive of either pulmonary edema or pneumonitis. He remains markedly elevated the blood pressure, has not been repeated. Patient subsequently on after consulting underwent echocardiogram shows marked LV systolic dysfunction with LVEF of 20-25% with diffuse hypokinesis. Cardiology will consult was sought. His troponins are minimally elevated at 40s flat. EKG shows sinus tachycardia with nonspecific ST T wave changes with PVCs. Review of Systems Constitutional: Constitutional: Denies body ache(s), Denies chills, Reports fatigue and Denies fever(s) Eyes: Eyes: Reports no additional eye complaints ENT: Reports system reviewed and no additional complaints, except as documented Cardiovascular: Cardiovascular: Reports chest pain at rest, Reports chest pain with activity, Denies lightheadedness, Denies Loss of Consciousness, Denies palpitations, Reports dyspnea on exertion and Reports orthopnea Respiratory: Respiratory: Reports no additional respiratory complaints and Reports dyspnea on exertion Gastrointestinal: Gastrointestinal: Reports no additional gastrointestinal complaints Genitourinary: Genitourinary: Reports no additional male genitourinary complaints Musculoskeletal: Musculoskeletal: Reports no additional musculoskeletal complaints Integumentary/Breasts: Skin/Breast: Reports system reviewed and no additional complaints, except as docu Neurologic: Reports system reviewed and no additional complaints, except as documented Psychiatric: Psychiatric: Reports no additional psychiatric complaints Endocrine: Endocrine: Reports no additional endocrine complaints, Reports fatigue and Denies palpitations Allergic/Immunologic: Allergic/Immunologic: Reports no additional allergic/immunologic complaints [facility] Social History Social History Alcohol intake: current Patient Tobacco Use Status: Current everyday Tobacco user Substance Use Type: Crack/Cocaine and Marijuana Advance Directives: No Advance Directives Information Provided: No Meds Allergies Allergy/AdvReac Type Severity Reaction Status Date / Time No Known Allergies Allergy Unverified 12/16/19 16:31 [No Known Allergies*] Active Medications: Current Medications Acetaminophen (Acetaminophen 325 Mg Tablet) 650 mg PO Q6H PRN PRN Reason: Pain, Mild (Pain Scale 1-3) Colchicine (Colchicine 0.6 Mg Tablet) 0.6 mg PO BID [facility] Enoxaparin Sodium (Enoxaparin Sodium 40 Mg/0.4 Ml Syringe) 40 mg SUBCUT DAILY [facility] Indomethacin (Indomethacin 25 Mg Capsule) 25 mg PO TID [facility] Omeprazole (Omeprazole 40 Mg Capsule.Dr) 40 mg PO DAILY@0630 [facility] Pharmacy Consult (Consult Rx Perform Med Rec) 1 each MISCELLANE ONCE PRN PRN Reason: Consult order Sodium Chloride (0.9 % Sodium Chloride Flush 3 Ml Syringe) 3 ml IVFLUSH QSHIFT [facility] Physical Exam Vital Signs: Vital Signs: Last Vital Signs Temp 97.6 F 03/12/21 12:06 Pulse 104 H 03/12/21 15:26 Resp 20 03/12/21 14:56 BP 168/125 H 03/12/21 15:26 Pulse Ox 98 03/12/21 14:56 BMI result Body Mass Index 32.5 Const: General: cooperative, alert, awake, in distress mild and respiratory, anxious and other (Rest last) Nutritional Appearance: overweight Orientation/consciousness: patient oriented x3 Limitations: no limitations HENMT: Head: Yes normocephalic and Yes atraumatic Neck: Neck: Yes trachea midline, Yes supple and Yes no JVD Resp: Effort & Inspection: normal respiratory effort Auscultation: no crackles, no rales and diminished lung sounds Cardio: Jugular venous distension: no JVD Palpation: normal PMI Rate: tachycardic Rhythm: abnormal rhythm with ectopic beats Heart sounds: S1 normal heart sound present, S2 normal heart sound present, no click, Gallop heart sound present, no murmurs and no rubs Peripheral pulses: Peripheral pulses 2+ throughout GI: Auscultation: normal bowel sounds Skin: General skin exam: no rashes or lesions noted Neuro: General: patient oriented x3 and no focal motor deficits Extrem: General: Yes no clubbing, cyanosis or edema Psych: Appearance: grossly normal Affect: Anxious affect present Objective Labs and Meds Result diagrams: 03/12/21 09:00 03/12/21 09:00 Lab results: Laboratory Results - last 24 hr 03/12/21 03/12/21 03/12/21 09:00 09:00 09:00 WBC 8.0 RBC 4.22 L Hgb 12.8 L Hct 40.1 L MCV 95.0 MCH 30.3 MCHC 31.9 RDW 13.2 Plt Count 254 MPV 10.5 Immature Gran % (Auto) 0.2 Neut % (Auto) 66.8 Lymph % (Auto) 21.2 [place] % (Auto) 6.5 Eos % (Auto) 4.4 H Baso % (Auto) 0.9 Lymph # (Auto) 1.7 [place] # (Auto) 0.5 Eos # (Auto) 0.4 Baso # (Auto) 0.1 Abs Immat Gran (auto) 0.02 Absolute Neuts (auto) 5.4 Absolute Nucleated RBC 0.000 Nucleated RBC % (auto) 0.0 ESR 13 D-Dimer High Sensitivty Sodium 142 Potassium 3.7 Chloride 106 Carbon Dioxide 29 Anion Gap 11 L BUN 13 Creatinine 1.36 Estim Creat Clear Calc 89.2 Estimated GFR 57 Random Glucose 107 Calcium 9.4 Magnesium 1.9 Total Bilirubin 0.4 AST 69 H ALT 42 H Alkaline Phosphatase 100 Troponin I High Sens C-Reactive Protein 1.76 H Total Protein 6.6 Albumin 3.8 Urine Color Urine Appearance Urine pH Ur Specific [place] Urine Protein Urine Glucose (UA) Urine Ketones Urine Blood Urine Nitrite Ur Leukocyte Esterase Urine Opiates Screen Urine Fentanyl Screen Ur Barbiturates Screen Ur Phencyclidine Scrn Ur Amphetamines Screen U Benzodiazepines Scrn Urine Cocaine Screen U Marijuana (THC) Screen COVID-19 ([facility]) COVID-19 Clin Com 03/12/21 03/12/21 03/12/21 09:01 09:01 09:01 WBC RBC Hgb Hct MCV MCH MCHC RDW Plt Count MPV Immature Gran % (Auto) Neut % (Auto) Lymph % (Auto) [place] % (Auto) Eos % (Auto) Baso % (Auto) Lymph # (Auto) [place] # (Auto) Eos # (Auto) Baso # (Auto) Abs Immat Gran (auto) Absolute Neuts (auto) Absolute Nucleated RBC Nucleated RBC % (auto) ESR D-Dimer High Sensitivty 303 Sodium Potassium Chloride Carbon Dioxide Anion Gap BUN Creatinine Estim Creat Clear Calc Estimated GFR Random Glucose Calcium Magnesium Total Bilirubin AST ALT Alkaline Phosphatase Troponin I High Sens C-Reactive Protein Total Protein Albumin Urine Color STRAW Urine Appearance CLEAR Urine pH 6.0 Ur Specific [place] <= 1.005 Urine Protein NEG Urine Glucose (UA) NEG Urine Ketones NEG Urine Blood NEG Urine Nitrite NEG Ur Leukocyte Esterase NEG Urine Opiates Screen Urine Fentanyl Screen Ur Barbiturates Screen Ur Phencyclidine Scrn Ur Amphetamines Screen U Benzodiazepines Scrn Urine Cocaine Screen U Marijuana (THC) Screen COVID-19 ([facility]) Negative COVID-19 Clin Com See Note 03/12/21 03/12/21 03/12/21 09:06 10:13 12:24 WBC RBC Hgb Hct MCV MCH MCHC RDW Plt Count MPV Immature Gran % (Auto) Neut % (Auto) Lymph % (Auto) [place] % (Auto) Eos % (Auto) Baso % (Auto) Lymph # (Auto) [place] # (Auto) Eos # (Auto) Baso # (Auto) Abs Immat Gran (auto) Absolute Neuts (auto) Absolute Nucleated RBC Nucleated RBC % (auto) ESR D-Dimer High Sensitivty Sodium Potassium Chloride Carbon Dioxide Anion Gap BUN Creatinine Estim Creat Clear Calc Estimated GFR Random Glucose Calcium Magnesium Total Bilirubin AST ALT Alkaline Phosphatase Troponin I High Sens 64.7 H 69.4 H C-Reactive Protein Total Protein Albumin Urine Color Urine Appearance Urine pH Ur Specific [place] Urine Protein Urine Glucose (UA) Urine Ketones Urine Blood Urine Nitrite Ur Leukocyte Esterase Urine Opiates Screen Not Detected Urine Fentanyl Screen Not Detected Ur Barbiturates Screen Not Detected Ur Phencyclidine Scrn Not Detected Ur Amphetamines Screen Not Detected U Benzodiazepines Scrn Not Detected Urine Cocaine Screen POSITIVE H U Marijuana (THC) Screen POSITIVE H COVID-19 ([facility]) COVID-19 Clin Com EKG shows sinus tachycardia with PVC with nonspecific ST T wave changes Imaging Radiologist's impression: Impressions Chest X-Ray 03/12/21 08:44 IMPRESSION: There is increased bilateral parahilar markings likely interstitial edema or pneumonitis. Chest CTA 03/12/21 11:30 IMPRESSION: No evidence of PE. No evidence of aortic dissection. Diffuse bilateral groundglass attenuation changes with nodules suggestive of inflammatory or infectious etiology. There are inflammatory matted lymph nodes in the subcarinal and left para-aortic space. There is bilateral posterior pleural thickening. VTE: negative. Assessment and Plan (1) Acute congestive heart failure: Status: Acute Patient presents with symptoms suggestive of congestive heart failure with chest x-ray finding consistent with pulmonary edema with echocardiogram showing LV systolic dysfunction which is severe and diffuse. He had a viral syndrome 2 weeks ago and there was concern for acute viral myocarditis/cardiomyopathy. He is also markedly hypertensive. No treatment has been given so far. Would given Lasix 40 mg stat. Strict intake and output chart. Also acutely afterload reduced with IV hydralazine 10 mg as well as start him on nitro paste. Plan would be to transfer him to [facility] however tree allergy and treat him acutely and depending on his blood pressure response, will either send him to intermediate Care at [facility] or ICU level care if he requires IV vasodilators. Case was discussed with Dr. Rome who is covering CCU at [facility]. Further treatment based on immediate response to therapy provided here in the ED. He will require cardiac catheterization and/or cardiac MRI for further diagnosis. We do not have the facility to further diagnostic testing at this hospital. This was discussed with him. He is agreeable to be transferred to [facility] if so required. (2) Cardiomyopathy: Status: Acute New onset cardiomyopathy question viral myocarditis/cardiomyopathy. Further imaging test at [facility]. Start on acute vasodilators with hydralazine and nitrates. Avoid beta-blockers given presence of acute congestive heart failure in setting of new onset cardiomyopathy as well as cocaine use. Complete abstinence from cocaine was discussed with him for the future. Transfer to [facility] after initiating appropriate therapy here. Greater than 45 minutes was spent in managing and coordinating his care Procedures Date of Service Date of Service: 03/12/21
--- NOTE | 2021-03-12 16:15 | PHA.MEDREC ---
Pharmacy Consult ? Medication Reconciliation Pharmacy has completed the medication reconciliation.
[2021-03-12] MEDS: Indomethacin 25 MG CAPSULE 50 MG PO (17:16)
[2021-03-12] MEDS: 0.9 % Sodium Chloride Flush 3 ML SYRINGE IVFLUSH (17:16)
[2021-03-12] MEDS: Nicotine 7 MG PATCH.TD24 TRANSDERMA (19:26)
== END 2021-03-12 19:37 | disposition short-term general hospital (02) ==
LOC: HO.ED 14:17 → HO.EDOVER 15:59 → HO.ED 19:14
PROVIDERS: Physician Assistant; Emergency Provider Emergency Medicine; PCP Internal Medicine
DX: I31.9 Disease of pericardium, unspecified (principal); R79.89 Other specified abnormal findings of blood chemistry; R79.1 Abnormal coagulation profile; R79.82 Elevated C-reactive protein (CRP); D64.9 Anemia, unspecified; Z20.822 Contact with and (suspected) exposure to COVID-19
CPT/HCPCS: 36415; 71045; 71275; 80053; 80307; 81003; 83735; 84484; 85025; 85379; 85652; 86140; 87635; 93005; 93306; 96365; 96372; 96375; 96376; 99285; 99291; J0696; J1885; J1940; J2270; Q9967

== ENCOUNTER 2021-03-30 01:07 | Inpatient (IN) | payer OTHER, SELFPAY ==
[2021-03-30] VITALS (13 sets, daily range): BP systolic 106–178; BP diastolic 65–131; PULSE 58–89; RESP 16–30; TEMP 36.4; O2SAT 92–99; BMI 25.7
--- NOTE | ~2021-03-30 | XR_ITS ---
EXAMINATION: XR CHEST CLINICAL INFORMATION: Chest pain COMPARISON: 03/12/2021 TECHNIQUE: Frontal view of the chest was obtained. FINDINGS: Lung volumes are symmetric. No focal consolidation is seen. Interval decrease in prominence of the central vasculature and interstitium compared to prior, favoring resolving edema. No evidence of pneumothorax or significant pleural effusion. Enlarged cardiac silhouette is similar to prior. No acute osseous findings are seen. XR/XR chest 1V IMPRESSION: Interval resolution of prior interstitial edema. Cardiac silhouette remains enlarged.
--- NOTE | 2021-03-30 01:26 | ED.CHESTPAIN ---
HPI - Chest Pain General Chief Complaint: Chest Pain Stated Complaint: Heart attack Time Seen by Provider: 03/30/21 01:12 Source: patient History of Present Illness HPI narrative: this is a 45-year-old male who complains of chest pain that started tonight. Patient admits having smoked weed, denies any cocaine. The patient was at rest when the pain started. Patient is a poor historian due to his intoxication. He had recently been here earlier in the month for extreme hypertension and chest pain and shortness of breath, was found to have ground-glass opacities on his CT, also a low EF. He was transferred to [facility] for further workup. There was concern for possible myocarditis given a recent viral syndrome. The patient denies any nausea or sweats. He does feel short of breath. He has not noted any swelling to his feet or legs. Related Data Home Medications Medication Instructions Recorded Confirmed carvedilol 25 mg tablet 25 mg PO BID 03/26/21 03/26/21 colchicine 0.6 mg tablet 0.3 mg PO BEDTIME 03/26/21 03/26/21 nicotine 21 mg/24 hr daily 1 patch TOPICAL DAILY 03/26/21 03/26/21 transdermal patch nitroglycerin 0.4 mg sublingual mg SUBLINGUAL 03/26/21 03/26/21 tablet spironolactone 25 mg tablet 50 mg PO DAILY 03/26/21 03/26/21 valsartan 40 mg tablet 40 mg PO BID 03/26/21 03/26/21 colchicine 0.6 mg tablet 0.6 mg PO DAILY 03/30/21 Allergies Allergy/AdvReac Type Severity Reaction Status Date / Time No Known Allergies Allergy Verified 03/26/21 09:35 [No Known Allergies*] Review of Systems Review of Systems: Yes all other systems are reviewed and are negative Constitutional: Constitutional: Reports as per HPI and Denies fever(s) Eyes: Eyes: Reports as per HPI and Reports no additional eye complaints ENT: Reports system reviewed and no additional complaints, except as documented, Reports as per HPI, Denies nasal congestion, Denies nasal discharge and Denies sore throat Cardiovascular: Cardiovascular: Reports as per HPI, Reports chest pain and Reports dyspnea Respiratory: Respiratory: Reports as per HPI, Denies cough and Reports dyspnea Gastrointestinal: Gastrointestinal: Reports as per HPI, Denies abdominal pain, Denies diarrhea and Denies vomiting Genitourinary: Genitourinary: Reports as per HPI, Denies hematuria, Denies dysuria and Denies urinary frequency Musculoskeletal: Musculoskeletal: Reports no additional musculoskeletal complaints and Denies numbness Integumentary/Breasts: Skin/Breast: Reports as per HPI and Denies rash Neurologic: Reports as per HPI, Denies focal weakness, Denies numbness and Denies Sensory deficit (Neuro) Psychiatric: Psychiatric: Reports no additional psychiatric complaints and Reports as per HPI Endocrine: Endocrine: Reports no additional endocrine complaints and Reports as per HPI Hematologic/Lymphatic: Hematologic/Lymphatic: Reports no additional hematologic/lymphatic complaints, Reports as per HPI and Reports other (No peripheral edema) [facility] Past Medical History Medical History Alcohol abuse 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 Father No problems noted. Social History Social History Housing: Apartment Alcohol intake: current Patient Tobacco Use Status: Current everyday Tobacco user Tobacco use type: Cigarette Cigarettes Per Day: 10 Years Smoked: 20 e-Cigarette/Vaping Use: Never Used Second Hand Smoke Exposure: No Use of substances other than those prescribed or required for medical reasons: Yes Substance Use Type: Crack/Cocaine and Marijuana Advance Directives: No Current occupational status: employed Cognitive needs: No Hearing needs: No Vision needs: No Physical Exam Vital Signs: Vital Signs: Last Vital Signs Pulse 86 03/30/21 04:13 Resp 16 03/30/21 04:13 BP 119/71 03/30/21 04:13 Pulse Ox 97 03/30/21 04:13 Oxygen Flow Rate 2 03/30/21 01:13 BMI result Body Mass Index 25.7 Const: Other: Patient appears intoxicated with marijuana, somewhat starry eyed, slow to answer questions General: cooperative, no acute distress and alert Orientation/consciousness: patient oriented x3 HENMT: Head: Yes normal to inspection Eyes: General: appearance normal, both eyes and all related structures Eyelids: Yes eyelids normal Conjunctivae: conjunctivae normal Pupils: Equal, round and reactive pupils present Neck: Neck: Yes normal visual inspection and Yes supple Chest: Chest palpation & inspection: normal inspection of the chest Resp: Effort & Inspection: normal respiratory effort Auscultation: clear to auscultation bilaterally Cardio: Rate: regular rate Rhythm: regular rhythm Heart sounds: S1 normal heart sound present, S2 normal heart sound present, Gallop heart sound present, no murmurs and no rubs GI: Palpation (GI): Soft to palpation, nontender and Other GI palpation findings present (Non-distended) Auscultation: normal bowel sounds Skin: General skin exam: no rashes or lesions noted Neuro: General: patient oriented x3, no focal motor deficits and CN's II-XI intact bilaterally Cranial nerves: Yes Equal, round and reactive pupils present Cognition (Neuro): normal cognition Motor exam (neuro): 5/5 motor strength present throughout Sensory Exam: No Sensory deficit (Neuro) Extrem: General: Yes normal to inspection and No no pedal edema ( trace pitting edema to legs bilaterally) Psych: Appearance: grossly normal Affect: normal affect MDM - Chest Pain MDM Narrative Medical decision making narrative: discharge summary was obtained from [facility]. The patient was thought to have had congestive heart failure and the controlled hypertension. There was low suspicion for ischemic cardiomyopathy based upon the patient's age and lack of anginal symptoms. Patient was treated with colchicine for possible pericarditis. He was started on spironolactone 50 mg daily, valsartan 40 mg twice daily, carvedilol 25 mg twice daily. He underwent cardiac MRI, results were pending at discharge. patient was treated with nitroglycerin sublingual x2 here with improvement his blood pressure. Patient was able fall sleep. Patient's pulse oximetry did remain low on room air, around 89%. Chest x-ray showed marked cardiomegaly, mild vascular congestion. EKG had nonspecific ST changes. Troponin was negative. Given the recent onset of this patient's acute heart issues and his recent admission here and transferred to [facility],, and given his low pulse oximetry on room air, admission for diuresis, blood pressure control, and re-evaluation by Cardiology is warranted. patient was given Lasix 40 mg IV here in the ED. Case was discussed with Dr. Tijerina of the hospitalist service, who accepted the patient for admission Critical care time for this life-threatening illness exclusive of all other billable procedures was approximately 35 minutes including initial evaluation of the patient, ordering tests, x-ray interpretation, EKG interpretation, medical consultation, documentation, reevaluation. Medical Records Data Attestation: I reviewed the patient's medical records. Lab Data Attestation: I reviewed the patient's lab results. Result diagrams: 03/30/21 01:21 03/30/21 01: Labs: Lab Results 03/30/21 03/30/21 03/30/21 Range/Units 01: 01: 01:21 WBC 6.8 (4.8-10.8) X10*3/uL RBC 4.01 L (4.60-5.80) X10*6/uL Hgb 12.1 L (14.0-18.0) g/dl Hct 37.6 L (42.0-52.0) % MCV 93.8 (80.0-98.0) fL MCH 30.2 (27.0-33.0) pg MCHC 32.2 (31.0-36.0) g/dl RDW 13.0 (11.0-16.0) % Plt Count 281 (160-400) X10*3/uL MPV 10.0 (9.4-12.4) fL Immature Gran % (Auto) 0.1 (0.0-0.4) % Neut % (Auto) 42.4 L (45-73) % Lymph % (Auto) 40.0 (20-40) % [place] % (Auto) 8.8 (2-11) % Eos % (Auto) 7.5 H (0-4) % Baso % (Auto) 1.2 (0-2) % Lymph # (Auto) 2.7 (1.2-4.9) X10*3/uL [place] # (Auto) 0.6 (0.1-1.2) X10*3/uL Eos # (Auto) 0.5 H (0.0-0.4) X10*3/uL Baso # (Auto) 0.1 (0.0-0.2) X10*3/uL Abs Immat Gran (auto) 0.01 (0.00-0.03) X10*3/uL Absolute Neuts (auto) 2.9 (2.0-8.3) x10*3/uL Absolute Nucleated RBC 0.000 (0.0-0.012) X10*3/uL Nucleated RBC % (auto) 0.0 (0.0-0.2) /100WBC Sodium 141 (135-145) mmol/L Potassium 4.1 (3.3-5.1) mmol/L Chloride 105 (96-108) mmol/L Carbon Dioxide 30 H (22-29) mmol/L Anion Gap 10 L (12-20) BUN 20 H D (9-16) mg/dL Creatinine 1.57 H (0.5-1.4) mg/dL Estim Creat Clear Calc 70.5 Estimated GFR 48 Random Glucose 146 H D (60-115) mg/dL Calcium 9.0 (8.4-10.2) mg/dL Total Bilirubin 0.6 (0.0-1.0) mg/dL AST 29 D (5-37) U/L ALT 30 (0-40) U/L Alkaline Phosphatase 90 (39-117) U/L Troponin I High Sens 20.9 D (<3.5-35.0) ng/L B-Natriuretic Peptide 435 H (<100) pg/mL Total Protein 7.1 (6.5-8.0) g/dL Albumin 4.0 (3.5-5.0) g/dL COVID-19 ([facility]) (Negative) COVID-19 Clin Com 03/30/21 03/30/21 Range/Units 01:30 03:41 WBC (4.8-10.8) X10*3/uL RBC (4.60-5.80) X10*6/uL Hgb (14.0-18.0) g/dl Hct (42.0-52.0) % MCV (80.0-98.0) fL MCH (27.0-33.0) pg MCHC (31.0-36.0) g/dl RDW (11.0-16.0) % Plt Count (160-400) X10*3/uL MPV (9.4-12.4) fL Immature Gran % (Auto) (0.0-0.4) % Neut % (Auto) (45-73) % Lymph % (Auto) (20-40) % [place] % (Auto) (2-11) % Eos % (Auto) (0-4) % Baso % (Auto) (0-2) % Lymph # (Auto) (1.2-4.9) X10*3/uL [place] # (Auto) (0.1-1.2) X10*3/uL Eos # (Auto) (0.0-0.4) X10*3/uL Baso # (Auto) (0.0-0.2) X10*3/uL Abs Immat Gran (auto) (0.00-0.03) X10*3/uL Absolute Neuts (auto) (2.0-8.3) x10*3/uL Absolute Nucleated RBC (0.0-0.012) X10*3/uL Nucleated RBC % (auto) (0.0-0.2) /100WBC Sodium (135-145) mmol/L Potassium (3.3-5.1) mmol/L Chloride (96-108) mmol/L Carbon Dioxide (22-29) mmol/L Anion Gap (12-20) BUN (9-16) mg/dL Creatinine (0.5-1.4) mg/dL Estim Creat Clear Calc Estimated GFR Random Glucose (60-115) mg/dL Calcium (8.4-10.2) mg/dL Total Bilirubin (0.0-1.0) mg/dL AST (5-37) U/L ALT (0-40) U/L Alkaline Phosphatase (39-117) U/L Troponin I High Sens 15.6 (<3.5-35.0) ng/L B-Natriuretic Peptide (<100) pg/mL Total Protein (6.5-8.0) g/dL Albumin (3.5-5.0) g/dL COVID-19 ([facility]) Negative (Negative) COVID-19 Clin Com See Note Imaging Data Chest x-ray: My impression: Cardiomegaly, mild vascular congestion ECG Data ECG #1: ECG interpretation date: 03/30/21 ECG interpretation time: 01:31 Interpretation: sinus rhythm with a rate of 87. T-wave inversion in leads V 4 through V6. Bi-atrial enlargement. Discharge Plan Discharge Clinical Impression: Acute congestive heart failure, Poorly-controlled hypertension
[2021-03-30 01:27] LABS: Basophils Absolute Auto 0.1 X10*3/uL (0.0-0.2); Basophils Percent Auto 1.2 % (0-2); Eosinophils Absolute Auto 0.5 X10*3/uL (0.0-0.4); Eosinophils Percent Auto 7.5 % (0-4); Hematocrit 37.6 % (42.0-52.0); Hemoglobin 12.1 g/dl (14.0-18.0); Imm Gran Abs Auto 0.01 X10*3/uL (0.00-0.03); Imm Gran Pct Auto 0.1 % (0.0-0.4); Lymphocytes Absolute Auto 2.7 X10*3/uL (1.2-4.9); MANUAL DIFF FLAG NO; Mean Corpuscular HGB Conc 32.2 g/dl (31.0-36.0); Mean Corpuscular Hemoglobin 30.2 pg (27.0-33.0); Mean Corpuscular Volume 93.8 fL (80.0-98.0); Monocytes Absolute Auto 0.6 X10*3/uL (0.1-1.2); Monocytes Percent Auto 8.8 % (2-11); Neutrophils Absolute Auto 2.9 x10*3/uL (2.0-8.3); Neutrophils Percent Auto 42.4 % (45-73); Platelet Count 281 X10*3/uL (160-400); Red Blood Count 4.01 X10*6/uL (4.60-5.80); White Blood Count 6.8 X10*3/uL (4.8-10.8)
[2021-03-30] MEDS: Nitroglycerin 0.4 MG TAB.SUBL SUBLINGUAL ×2 (01:33→01:42)
--- NOTE | 2021-03-30 01:34 | PC.NURSE ---
The pt was rushed to be d4 from waiting room via stretcher after medical charge entry specialist ran to waiting room and brought pt back to bed 4 requesting MD presence to bedside. Pt somnolent however he opens his eyes to verbal stimuli and answers questions. Respirations are non-labored. The pt is not indicating that he is in pain but when asked he admits to 5/10 chest pain. pt placed on all bedside monitors and MD to bedside immediately upon arrival to bed 4. Sr rate 80's on bedside monitor. IV access/labs/ekg obtained. Will continue to monitor.
[2021-03-30 01:47] LABS: B Type Natriuretic Peptide 435 pg/mL (<100); Troponin-I High Sensitivity 20.9 ng/L (<3.5-35.0)
[2021-03-30 01:48] LABS: Alanine Aminotransferase 30 U/L (0-40); Alkaline Phosphatase 90 U/L (39-117); Anion Gap 10 (12-20); Aspartate Amino Transferase 29 U/L (5-37); Bilirubin Total 0.6 mg/dL (0.0-1.0); Blood Urea Nitrogen 20 mg/dL (9-16); Carbon Dioxide 30 mmol/L (22-29); Chloride 105 mmol/L (96-108); Creatinine Clr Calc Pharmacy 70.5; Estimated Glomerular Filt Rate 48; Glucose Random 146 mg/dL (60-115); Potassium 4.1 mmol/L (3.3-5.1); Sodium 141 mmol/L (135-145); Total Protein 7.1 g/dL (6.5-8.0)
[2021-03-30 01:50] LABS: COVID-19 Test Negative (Negative); IDNOW Serial# 9DD0AD1C
[2021-03-30] MEDS: Furosemide 40 MG/4 ML VIAL IVPUSH ×2 (03:19→08:00)
[2021-03-30 04:30] LABS: Troponin-I High Sensitivity 15.6 ng/L (<3.5-35.0)
--- NOTE | 2021-03-30 06:05 | PM.IMHP ---
History of Present Illness Date of Service: 03/30/21 Chief Complaint: chest pain 45-year-old male with past medical history of CHF as well as pericarditis hypertension, and alcohol abuse who presents to the hospital with complaints of chest pain. Patient sleeping, attempted to wake up several times, he wakes up but goes right back to sleep, not cooperating at all. According to the ED physician patient was vague on arrival, was not really giving a clear history and was very vague with his symptoms but he was noted to be clutching his chest and stating that he had pain there. I am unable to review systems and get much more history than that. Of note patient was admitted to the hospital back in early February of this year with pericarditis and CHF secondary to that, he was treated with colchicine and discharged to outside hospital. On arrival to the ED patient found to have heart rate of 87, respiratory rate of 30, blood pressure 178/131, satting currently 97% on room air Vitals are significant for WBC count of 6.8, hemoglobin 12.1 which is around his baseline, BUN of 20, creatinine of 1.57 with a baseline around 1.36, BNP of 435, troponin of 20.9 that decreased to 15.6 on repeat, COVID-19 negative, UDS pending, chest x-ray showed interval decrease in prominence of the central vasculature and interstitium compared to prior patient received nitroglycerin with improvement in his chest pain as well as blood pressure and will be admitted for further management EKG showed T-wave inversions in the lateral leads which were present on previous EKG in early February Review of Systems Review of Systems: Yes all other systems are reviewed and are negative [facility] Medical History Alcohol abuse 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 Father No problems noted. Surgical History No pertinent past surgical history Social History Housing: Apartment Alcohol intake: current Patient Tobacco Use Status: Current everyday Tobacco user Tobacco use type: Cigarette Cigarettes Per Day: 10 Years Smoked: 20 e-Cigarette/Vaping Use: Never Used Second Hand Smoke Exposure: No Use of substances other than those prescribed or required for medical reasons: Yes Substance Use Type: Crack/Cocaine and Marijuana Advance Directives: No Current occupational status: employed Cognitive needs: No Hearing needs: No Vision needs: No Meds Allergies Allergy/AdvReac Type Severity Reaction Status Date / Time No Known Allergies Allergy Verified 03/26/21 09:35 [No Known Allergies*] Active Medications: Current Medications Nicardipine HCl 25 mg/ Sodium (Chloride) 260 mls @ 0 mls/hr IVCONT .Q0M REANNA; Protocol Nitroglycerin (Nitroglycerin 0.4 Mg Tab.Subl) 0.4 mg SUBLINGUAL [id number] PRN PRN Reason: CP Last Admin: 03/30/21 01:42 Dose: 1 tab Documented by: Home Medications Medication Instructions Recorded Confirmed Last Taken Type carvedilol 25 mg tablet 25 mg PO BID 03/26/21 03/26/21 Unknown History colchicine 0.6 mg tablet 0 mg PO 03/26/21 03/26/21 Unknown History nicotine 21 mg/24 hr daily 1 patch TOPICAL DAILY 03/26/21 03/26/21 Unknown History transdermal patch nitroglycerin 0.4 mg sublingual mg SUBLINGUAL 03/26/21 03/26/21 Unknown History tablet spironolactone 25 mg tablet 50 mg PO DAILY 03/26/21 03/26/21 Unknown History valsartan 40 mg tablet 40 mg PO BID 03/26/21 03/26/21 Unknown History Physical Exam Vital Signs and Narrative: Vital Signs: Last Vital Signs Pulse 86 03/30/21 04:13 Resp 16 03/30/21 04:13 BP 119/71 03/30/21 04:13 Pulse Ox 97 03/30/21 04:13 Oxygen Flow Rate 2 03/30/21 01:13 BMI result Body Mass Index 25.7 Const: Other: patient sleepy but arousable no apparent distress General: no acute distress Eyes: General: appearance normal, both eyes and all related structures Resp: Effort & Inspection: normal respiratory effort Auscultation: clear to auscultation bilaterally Cardio: Rate: regular rate Rhythm: regular rhythm GI: Palpation (GI): Soft to palpation Auscultation: normal bowel sounds Skin: General skin exam: no rashes or lesions noted Extrem: General: Yes normal to inspection and Yes no pedal edema Results Labs CBC and Chem 7: 03/30/21 01:21 03/30/21 01:21 Labs: Laboratory Results - last 24 hr 03/30/21 03/30/21 03/30/21 01:21 01:21 01:21 MCV 93.8 MCH 30.2 MCHC 32.2 RDW 13.0 Plt Count 281 MPV 10.0 Immature Gran % (Auto) 0.1 Neut % (Auto) 42.4 L Lymph % (Auto) 40.0 [place] % (Auto) 8.8 Eos % (Auto) 7.5 H Baso % (Auto) 1.2 Lymph # (Auto) 2.7 [place] # (Auto) 0.6 Eos # (Auto) 0.5 H Baso # (Auto) 0.1 Abs Immat Gran (auto) 0.01 Absolute Neuts (auto) 2.9 Absolute Nucleated RBC 0.000 Nucleated RBC % (auto) 0.0 Anion Gap 10 L Estim Creat Clear Calc 70.5 Estimated GFR 48 Random Glucose 146 H D Calcium 9.0 Total Bilirubin 0.6 AST 29 D ALT 30 Alkaline Phosphatase 90 Troponin I High Sens 20.9 D B-Natriuretic Peptide 435 H Total Protein 7.1 Albumin 4.0 COVID-19 ([facility]) COVID-19 Clin Com 03/30/21 03/30/21 01:30 03:41 MCV MCH MCHC RDW Plt Count MPV Immature Gran % (Auto) Neut % (Auto) Lymph % (Auto) [place] % (Auto) Eos % (Auto) Baso % (Auto) Lymph # (Auto) [place] # (Auto) Eos # (Auto) Baso # (Auto) Abs Immat Gran (auto) Absolute Neuts (auto) Absolute Nucleated RBC Nucleated RBC % (auto) Anion Gap Estim Creat Clear Calc Estimated GFR Random Glucose Calcium Total Bilirubin AST ALT Alkaline Phosphatase Troponin I High Sens 15.6 B-Natriuretic Peptide Total Protein Albumin COVID-19 ([facility]) Negative COVID-19 Clin Com See Note Imaging Radiologist's Impressions: Impressions Chest X-Ray 03/30/21 01:25 IMPRESSION: Interval resolution of prior interstitial edema. Cardiac silhouette remains enlarged. Assessment and Plan (1) Acute exacerbation of CHF (congestive heart failure): Status: Acute (2) Chest pain: Status: Acute (3) LUIS MANUEL (acute kidney injury): Status: Acute 45-year-old male with past medical history of CHF secondary to pericarditis / myocarditis presents to the hospital with chest pain found to have CHF exacerbation. # Chest pain - possibly secondary to recurrent pericarditis - unable to get much history from the patient as he is very somnolent and not cooperating - troponin negative x2 - will load him with 1.2 mg of colchicine followed by 0.6 mg daily scheduled - cardiology consulted - echocardiogram ordered - Will obtian UDS as pt has hx of cocaine abuse which can also be causing his chest pain # acute CHF exacerbation - history of CHF ejection of 20 25% - echocardiogram done in early February of this year - has elevated BNP - at this time will start him on Lasix 40 mg - will start him on Lasix 40 daily - low-sodium diet, strict I&O, daily - cardiology consult #LUIS MANUEL - possibly secondary to CHF - will continue Lasix - daily BMP # hypertension - stable at this time - continue spironolactone, valsartan and carvedilol DVT prophylaxis: heparin subq Quality Stroke Does the patient have a stroke diagnosis?: No VTE Prior VTE?: No VTE Risk Level:: Medical - moderate - high VTE Device Contraindication: Treatment Not Indicated VTE Drug Contraindication: N/A - Med Ordered
--- NOTE | 2021-03-30 06:13 | ECG_ITS ---
Test Reason : chest pain Blood Pressure : / mmHG Vent. Rate : 064 BPM Atrial Rate : 064 BPM P-R Int : 290 ms QRS Dur : 096 ms QT Int : 454 ms P-R-T Axes : 053 024 -81 degrees QTc Int : 468 ms Sinus rhythm with 1st degree A-V block with Premature atrial complexes Minimal voltage criteria for LVH, may be normal variant ( Anupam product ) T wave abnormality, consider lateral ischemia Prolonged QT Abnormal ECG When compared with ECG of 12-MAR-2021 07:50, Significant changes have occurred Referred By: Martin Tijerina Electronically Signed By:Lan Armijo
[2021-03-30] MEDS: Heparin Sodium,Porcine 5,000 UNIT/ML VIAL 5000 UNIT SUBCUT ×2 (07:59→20:44)
[2021-03-30] MEDS: carvediloL 25 MG TABLET PO ×2 (08:00→20:45)
[2021-03-30] MEDS: Valsartan 40 MG TABLET PO ×2 (08:01→20:45)
[2021-03-30] MEDS: Spironolactone 25 MG TABLET PO (08:01)
--- NOTE | 2021-03-30 08:09 | ECG_ITS ---
Test Reason : CP Blood Pressure : / mmHG Vent. Rate : 087 BPM Atrial Rate : 087 BPM P-R Int : 192 ms QRS Dur : 088 ms QT Int : 364 ms P-R-T Axes : 055 023 -41 degrees QTc Int : 438 ms Normal sinus rhythm Biatrial enlargement ST & T wave abnormality, consider lateral ischemia Abnormal ECG When compared with ECG of 12-MAR-2021 07:50, Premature ventricular complexes are no longer Present Referred By: Tiago Park Electronically Signed By:MOY SALDAÑA MD
--- NOTE | 2021-03-30 09:16 | PHA.MEDREC ---
Pharmacy Consult ? Medication Reconciliation Pharmacy has completed the medication reconciliation. Pt previously discharged from [facility]. Had discharge paperwork in chart from 03/12/21.
[2021-03-30 09:19] LABS: Glucose, Whole Blood 137 mg/dL (60-115)
[2021-03-30] MEDS: Colchicine 0.6 MG TABLET 1.2 MG PO (09:21)
--- NOTE | 2021-03-30 09:25 | PM.EVENT ---
Event Note Date of Service: 03/30/21 Event Note: I saw and examined this patient and reviewed record including meds, labs, vitals. a/p: today as outlined in H and P from this morning.
--- NOTE | 2021-03-30 09:43 | MHC.CM.PN ---
CM ATTEMPTED TO MEET W/PT, PT OPENS EYES WHEN HIS NAME IS CALLED HOWEVER PT REFUSES TO ANSWER OR SPEAK W/THIS CMSTACY TO REVISIT. NO IMM NEEDED HE IS A [facility] PT.
[2021-03-30 09:45] LABS: Amphetamine Screen Urine Not Detected (Not Detect); Barbiturates, Urine Not Detected (Not Detect); Benzodiazepines Screen Urine Not Detected (Not Detect); Cannabinoid Screen Urine POSITIVE (Not Detect); Cocaine Screen Urine Not Detected (Not Detect); Fentanyl, urine Not Detected (Not Detect); Opiate Screen Urine Not Detected (Not Detect); Phencyclidine Screen Urine Not Detected (Not Detect)
--- NOTE | 2021-03-30 10:56 | PC.NURSE ---
urine output 750mkl clear yellow urine.
--- NOTE | 2021-03-30 15:43 | P.CONCA_ITS ---
History of Present Illness History of Present Illness Date of Service: 03/30/21 Requesting physician: Benji Velazquez Chief complaint: CHF exacerbation Narrative: 45-year-old male with h/o myocarditis and EF 20-25% presenting with CP. Patient is somnolent and no history was possible. He denied CP and SOB. Echocardiogram: -? 1. Severely reduced LV systolic function with LVEF of 20-25%? with pseudonormal filling pattern with mild LVH with akinesis of the inferior wall? 2. Moderately dilated left atrium? 3.? Normal calculated RV systolic pressure with elevated right ? atrial pressures ? 4. No gross pericardial effusion ? ? 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 Father No problems noted. Surgical History Surgical History No pertinent past surgical history Social History Social History Housing: Apartment Alcohol intake: current Patient Tobacco Use Status: Current everyday Tobacco user Tobacco use type: Cigarette Cigarettes Per Day: 10 Years Smoked: 20 e-Cigarette/Vaping Use: Never Used Second Hand Smoke Exposure: No Use of substances other than those prescribed or required for medical reasons: Yes Substance Use Type: Crack/Cocaine and Marijuana Advance Directives: No service: No Current occupational status: employed Cognitive needs: No Hearing needs: No Vision needs: No Meds Allergies Allergy/AdvReac Type Severity Reaction Status Date / Time No Known Allergies Allergy Verified 03/26/21 09:35 [No Known Allergies*] Active Medications: Current Medications Acetaminophen (Acetaminophen 325 Mg Tablet) 650 mg PO Q6H PRN PRN Reason: Pain, Mild (Pain Scale 1-3) Carvedilol (Carvedilol 25 Mg Tablet) 25 mg PO BID [facility]; Protocol Last Admin: 03/30/21 08:00 Dose: 25 mg Documented by: Colchicine (Colchicine 0.6 Mg Tablet) 0.6 mg PO BID [facility] Docusate Sodium (Docusate Sodium 100 Mg Capsule) 100 mg PO DAILY PRN PRN Reason: Constipation Furosemide (Furosemide 40 Mg/4 Ml Vial) 40 mg IVPUSH DAILY [facility]; Protocol Last Admin: 03/30/21 08:00 Dose: 40 mg Documented by: Heparin Sodium (Porcine) (Heparin Sodium,Porcine 5,000 Unit/Ml Vial) 5,000 unit SUBCUT Q12H REANNA Last Admin: 03/30/21 07:59 Dose: 5,000 unit Documented by: Nicardipine HCl 25 mg/ Sodium (Chloride) 260 mls @ 0 mls/hr IVCONT .Q0M [facility]; Protocol Nitroglycerin (Nitroglycerin 0.4 Mg Tab.Subl) 0.4 mg SUBLINGUAL Q5MX3 PRN PRN Reason: CP Last Admin: 03/30/21 01:42 Dose: 1 tab Documented by: Ondansetron HCl (Ondansetron Hcl 4 Mg/2 Ml Vial) 4 mg IVPUSH Q8H PRN PRN Reason: Nausea and Vomiting Sodium Chloride (0.9 % Sodium Chloride Flush 3 Ml Syringe) 3 ml IVFLUSH QSHIFT [facility] Last Admin: 03/30/21 15:07 Dose: Not Given Documented by: Spironolactone (Spironolactone 25 Mg Tablet) 25 mg PO DAILY [facility]; Protocol Last Admin: 03/30/21 08:01 Dose: 25 mg Documented by: Valsartan (Valsartan 40 Mg Tablet) 40 mg PO BID [facility]; Protocol Last Admin: 03/30/21 08:01 Dose: 40 mg Documented by: Home Medications Medication Instructions Recorded Confirmed Last Taken Type carvedilol 25 mg tablet 25 mg PO BID 03/26/21 03/30/21 Unknown History colchicine 0.6 mg tablet 0.3 mg PO BEDTIME 03/26/21 03/30/21 Unknown History nicotine 21 mg/24 hr daily 1 patch TOPICAL DAILY 03/26/21 03/30/21 Unknown History transdermal patch nitroglycerin 0.4 mg sublingual 0.4 mg SUBLINGUAL Q5M PRN 03/26/21 03/30/21 Unknown History tablet spironolactone 25 mg tablet 50 mg PO DAILY 03/26/21 03/30/21 Unknown History valsartan 40 mg tablet 40 mg PO BID 03/26/21 03/30/21 Unknown History colchicine 0.6 mg tablet 0.6 mg PO DAILY 03/30/21 03/30/21 Unknown History Physical Exam Vital Signs: Vital Signs: Last Vital Signs Temp 97.6 F 03/30/21 07:51 Pulse 58 03/30/21 14:25 Resp 17 03/30/21 14:25 BP 120/75 03/30/21 14:25 Pulse Ox 99 03/30/21 14:25 Oxygen Flow Rate 2 03/30/21 01:13 BMI result Body Mass Index 25.7 GENERAL APPEARANCE: in no acute distress, Somnolent. B insert normal exam NECK: no carotid bruit, no jugular venous distention. SKIN: no suspicious lesions, warm and dry. HEART: no murmurs, regular rate and rhythm. LUNGS: clear to auscultation bilaterally. ABDOMEN: soft, nontender. EXTREMITIES: no edema. PERIPHERAL PULSES: equal. NEUROLOGIC: Somnolent. Objective Labs and Meds Result diagrams: 03/30/21 01:21 03/30/21 01:21 Lab results: Laboratory Results - last 24 hr 03/30/21 03/30/21 03/30/21 01:12 01:21 01:21 WBC 6.8 RBC 4.01 L Hgb 12.1 L Hct 37.6 L MCV 93.8 MCH 30.2 MCHC 32.2 RDW 13.0 Plt Count 281 MPV 10.0 Immature Gran % (Auto) 0.1 Neut % (Auto) 42.4 L Lymph % (Auto) 40.0 [place] % (Auto) 8.8 Eos % (Auto) 7.5 H Baso % (Auto) 1.2 Lymph # (Auto) 2.7 [place] # (Auto) 0.6 Eos # (Auto) 0.5 H Baso # (Auto) 0.1 Abs Immat Gran (auto) 0.01 Absolute Neuts (auto) 2.9 Absolute Nucleated RBC 0.000 Nucleated RBC % (auto) 0.0 Sodium 141 Potassium 4.1 Chloride 105 Carbon Dioxide 30 H Anion Gap 10 L BUN 20 H D Creatinine 1.57 H Estim Creat Clear Calc 70.5 Estimated GFR 48 POC Glucose 137 H Random Glucose 146 H D Calcium 9.0 Total Bilirubin 0.6 AST 29 D ALT 30 Alkaline Phosphatase 90 Troponin I High Sens B-Natriuretic Peptide Total Protein 7.1 Albumin 4.0 Urine Opiates Screen Urine Fentanyl Screen Ur Barbiturates Screen Ur Phencyclidine Scrn Ur Amphetamines Screen U Benzodiazepines Scrn Urine Cocaine Screen U Marijuana (THC) Screen COVID-19 ([facility]) COVID-19 Clin Com 03/30/21 03/30/21 03/30/21 01:21 01:30 03:41 WBC RBC Hgb Hct MCV MCH MCHC RDW Plt Count MPV Immature Gran % (Auto) Neut % (Auto) Lymph % (Auto) [place] % (Auto) Eos % (Auto) Baso % (Auto) Lymph # (Auto) [place] # (Auto) Eos # (Auto) Baso # (Auto) Abs Immat Gran (auto) Absolute Neuts (auto) Absolute Nucleated RBC Nucleated RBC % (auto) Sodium Potassium Chloride Carbon Dioxide Anion Gap BUN Creatinine Estim Creat Clear Calc Estimated GFR POC Glucose Random Glucose Calcium Total Bilirubin AST ALT Alkaline Phosphatase Troponin I High Sens 20.9 D 15.6 B-Natriuretic Peptide 435 H Total Protein Albumin Urine Opiates Screen Urine Fentanyl Screen Ur Barbiturates Screen Ur Phencyclidine Scrn Ur Amphetamines Screen U Benzodiazepines Scrn Urine Cocaine Screen U Marijuana (THC) Screen COVID-19 ([facility]) Negative COVID-19 Clin Com See Note 03/30/21 09:23 WBC RBC Hgb Hct MCV MCH MCHC RDW Plt Count MPV Immature Gran % (Auto) Neut % (Auto) Lymph % (Auto) [place] % (Auto) Eos % (Auto) Baso % (Auto) Lymph # (Auto) [place] # (Auto) Eos # (Auto) Baso # (Auto) Abs Immat Gran (auto) Absolute Neuts (auto) Absolute Nucleated RBC Nucleated RBC % (auto) Sodium Potassium Chloride Carbon Dioxide Anion Gap BUN Creatinine Estim Creat Clear Calc Estimated GFR POC Glucose Random Glucose Calcium Total Bilirubin AST ALT Alkaline Phosphatase Troponin I High Sens B-Natriuretic Peptide Total Protein Albumin Urine Opiates Screen Not Detected Urine Fentanyl Screen Not Detected Ur Barbiturates Screen Not Detected Ur Phencyclidine Scrn Not Detected Ur Amphetamines Screen Not Detected U Benzodiazepines Scrn Not Detected Urine Cocaine Screen Not Detected U Marijuana (THC) Screen POSITIVE H COVID-19 ([facility]) COVID-19 Clin Com Imaging Radiologist's impression: Impressions Chest X-Ray 03/30/21 01:25 IMPRESSION: Interval resolution of prior interstitial edema. Cardiac silhouette remains enlarged. Assessment and Plan (1) Cardiomyopathy: Status: Acute 45-year-old gentleman with cardiomyopathy. Clinically euvolemic. No history available from patient. Very somnolent. Will revisit as mental status improves. Thank you for allowing me to participate in the care of your patient. Please feel free to contact me if you have any questions. Procedures Date of Service Date of Service: 03/30/21
--- NOTE | 2021-03-30 16:03 | MHC.CM.PN ---
Addendum entered by Beverly Chaidez RN 03/30/21 16:14: PT CURRENTLY DECLINING CARE TEAM/RECOVERY SUPPORT OR ANY SA TX AT THIS TIME. Original Note: EMR REVIEWED, PT ADMITTED W/CHF EXAC, CM MET W/PT WHO IS GROGGY HOWEVER AWAKE AND ANSWERING QUESTIONS, PT IS A&O REPORTS HE LIVES W/HIS CHILDRENS GRANDMOTHER, PT IS INDEPENDENT W/ALL CARE, NO DME AND NO HOME SERVICES, PT REPORTS HE WAS SUPPOSED TO FILL A PRESCRIPTION FOR CARDIAC MED HOWEVER HASN'T RECEIVED HIS INSURANCE CARD YET, PT ALSO REPORTS HE HAS A NEW PCP AT [facility] HOWEVER DOES NOT RECALL THE NAME AND HAS NOT HAD HIS FIRST APPT, PT DENIES HAVING A HCP AND DECLINES AT THIS TIME. D/C PLAN: HOME SELF-CARE, FAMILY FOR TRANSPORT.
--- NOTE | 2021-03-30 21:15 | PC.NURSE ---
Report given to RN on floor. Pt reports that he is pain free at this time.
[2021-03-30] MEDS: 0.9 % Sodium Chloride Flush 3 ML SYRINGE IVFLUSH (22:08)
[2021-03-31] VITALS: BP 129/86; PULSE 74; RESP 16; TEMP 36.2; O2SAT 95
[2021-03-31 04:00] VITALS: BP 128/86; PULSE 74; RESP 16; TEMP 36.4; O2SAT 97
[2021-03-31] MEDS: Heparin Sodium,Porcine 5,000 UNIT/ML VIAL 5000 UNIT SUBCUT (05:28)
[2021-03-31 06:24] LABS: MANUAL DIFF FLAG NO
[2021-03-31 06:33] LABS: Basophils Percent Auto 0.4 % (0-2); Eosinophils Absolute Auto 0.3 X10*3/uL (0.0-0.4); Eosinophils Percent Auto 4.2 % (0-4); Hematocrit 38.2 % (42.0-52.0); Hemoglobin 12.4 g/dl (14.0-18.0); Imm Gran Abs Auto 0.02 X10*3/uL (0.00-0.03); Imm Gran Pct Auto 0.3 % (0.0-0.4); Lymphocytes Percent Auto 25.2 % (20-40); Mean Corpuscular HGB Conc 32.5 g/dl (31.0-36.0); Mean Corpuscular Hemoglobin 30.5 pg (27.0-33.0); Mean Corpuscular Volume 94.1 fL (80.0-98.0); Mean Platelet Volume 10.7 fL (9.4-12.4); Monocytes Absolute Auto 0.6 X10*3/uL (0.1-1.2); Monocytes Percent Auto 8.1 % (2-11); Neutrophils Absolute Auto 4.9 x10*3/uL (2.0-8.3); Neutrophils Percent Auto 61.8 % (45-73); Platelet Count 252 X10*3/uL (160-400); Red Blood Count 4.06 X10*6/uL (4.60-5.80); Red Cell Distribution Width 13.2 % (11.0-16.0); White Blood Count 7.9 X10*3/uL (4.8-10.8)
[2021-03-31 06:48] LABS: Anion Gap 9 (12-20); Blood Urea Nitrogen 21 mg/dL (9-16); Calcium 8.9 mg/dL (8.4-10.2); Carbon Dioxide 30 mmol/L (22-29); Chloride 107 mmol/L (96-108); Creatinine Clr Calc Pharmacy 88.5; Estimated Glomerular Filt Rate > 60; Glucose Random 97 mg/dL (60-115); Potassium 3.8 mmol/L (3.3-5.1); Sodium 142 mmol/L (135-145)
[2021-03-31 07:47] VITALS: BP 128/86; PULSE 74
[2021-03-31] MEDS: Spironolactone 25 MG TABLET PO (07:47)
[2021-03-31 07:48] VITALS: BP 128/86; PULSE 74
[2021-03-31] MEDS: Colchicine 0.6 MG TABLET PO (07:48)
[2021-03-31] MEDS: Valsartan 40 MG TABLET PO (07:48)
[2021-03-31] MEDS: carvediloL 25 MG TABLET PO (07:48)
[2021-03-31] MEDS: Furosemide 40 MG/4 ML VIAL IVPUSH (07:48)
[2021-03-31] MEDS: 0.9 % Sodium Chloride Flush 3 ML SYRINGE IVFLUSH (07:49)
[2021-03-31 08:00] VITALS: BP 130/105; PULSE 70; RESP 18; TEMP 36.6; O2SAT 97
--- NOTE | 2021-03-31 09:51 | MHC.CM.PN ---
Male 45 DX HF exacerbation. Patient is discharged today to home no services. Patient has arranged for private transportation.
--- NOTE | 2021-03-31 21:34 | P.DS_ITS ---
DS: Providers Provider Date of Service: 03/31/21 Date of admission: 03/30/21 06:04 Primary care physician: Unknown Physician Consults: 03/30/21 06:29 Consult to Cardiology Routine Consulting Provider: Lan Armijo Reason for consultation: chf Has provider been notified: No DS: Diagnosis Discharge Diagnosis (1) Cardiomyopathy: Status: Acute DS: Summary Hospital Course Hospital Course: Admission HPI by Dr. Caputo Chief Complaint: chest pain ?45-year-old male with past medical history of CHF as well as pericarditis hypertension, and alcohol abuse who presents to the hospital with complaints of chest pain.? Patient sleeping, attempted to wake up several times, he wakes up but goes right back to sleep, not cooperating at all.? According to the ED physician patient was vague on arrival, was not really? giving a clear history and was very vague with his symptoms but he was noted to be clutching his chest and stating that he had pain there.? I am unable to review systems? and get much more history than that. ? Of note patient was admitted to the hospital back in early February of this year with pericarditis and CHF secondary to that, he was treated with colchicine and discharged to outside hospital. ? On arrival to the ED patient found to have heart rate of 87, respiratory rate of 30, blood pressure 178/131, satting? currently 97% on room air Vitals are significant for WBC count of 6.8, hemoglobin 12.1 which is around his baseline, BUN of 20, creatinine of 1.57 with a baseline around 1.36, BNP of 435, troponin of 20.9 that decreased to 15.6 on repeat, COVID-19 negative, ?UDS pending, chest x-ray showed? interval decrease in prominence of the central vasculature and interstitium compared to prior ?patient received nitroglycerin with improvement in his chest pain as well as blood pressure and will be admitted for further management ?EKG showed? T-wave inversions in the lateral leads which were present on previous EKG in early February Hospital course: patient was admitted due to chest pain and sob and there was ? pericarditis as he had recently treated for such, ECG no acute ischemic changes, troponin were normal, was given IV Lasix for acute on chronic systolic heart failure and cardiology was consulted, Dr. Armijo saw the patient prior day but was too sleepy and could not due full evaluation, the next day patient was feeling better without chest pain or sob and I discussed with Dr. Armijo who was to see the patient later but patient did not want to want till later to see the cardiology and and understood he would be leaving against my advise and I pr oceed and advised that he takes his medication as ordered and to follow up with his DrShaheen as soon as possible. Time Spent with Patient Time attestation: Total time spent providing and/or coordinating discharge services: Discharge coordination time: Greater than 30 minutes Quality: Stroke Does the patient have a stroke diagnosis?: No Physical Exam Verdana 4l Vital Signs: Verdana 4d Verdana 4d Vital Signs: Verdana 4d Verdana 4Bd Last Vital Signs Verdana 4d Vessel Builder New 4d Vessel Builder New 4d Temp 97.8 F 03/31/21 08:00 Vessel Builder New 4d Pulse 70 03/31/21 08:00 Vessel Builder New 4d Resp 18 03/31/21 08:00 BP 130/105 H 03/31/21 08:00 Pulse Ox 97 03/31/21 08:00 Oxygen Flow Rate 2 03/30/21 01:13 BMI result Body Mass Index 25.7 DS: Data Data Completed and Pending Labs on day of discharge: Laboratory Results - last 24 hr 03/31/21 03/31/21 05:26 05:26 WBC 7.9 RBC 4.06 L Hgb 12.4 L Hct 38.2 L MCV 94.1 MCH 30.5 MCHC 32.5 RDW 13.2 Plt Count 252 MPV 10.7 Immature Gran % (Auto) 0.3 Neut % (Auto) 61.8 Lymph % (Auto) 25.2 [place] % (Auto) 8.1 Eos % (Auto) 4.2 H Baso % (Auto) 0.4 Lymph # (Auto) 2.0 [place] # (Auto) 0.6 Eos # (Auto) 0.3 Baso # (Auto) 0.0 Abs Immat Gran (auto) 0.02 Absolute Neuts (auto) 4.9 Absolute Nucleated RBC 0.000 Nucleated RBC % (auto) 0.0 Sodium 142 Potassium 3.8 Chloride 107 Carbon Dioxide 30 H Anion Gap 9 L BUN 21 H Creatinine 1.25 Estim Creat Clear Calc 88.5 Estimated GFR > 60 Random Glucose 97 Calcium 8.9 Discharge Plan Discharge Anticipated Discharge Date/Time: 03/31/21 09:42 Patient Disposition: Left Against Medical Advice Discharge Diagnosis: Chest pain, LUIS MANUEL and chronic heart failure Referrals: Physician,Unknown J [Primary Care Provider] - 1 Week Discharge Medications: Continued colchicine 0.6 mg tablet 0.6 mg PO DAILY 0RF colchicine 0.6 mg tablet 0.3 mg PO BEDTIME 0RF nitroglycerin 0.4 mg tablet, sublingual 0.4 mg sublingual Q5M PRN (Reason: Chest Pain) 0RF nicotine 21 mg/24 hr patch 24 hour 1 patch topical DAILY 0RF spironolactone 25 mg tablet 50 mg PO DAILY 0RF No Action cholecalciferol (vitamin D3) 50 mcg (2,000 unit) capsule 50 mcg PO DAILY Qty: 30 0RF azithromycin 250 mg tablet See Rx Instructions PO .COMPLEX Qty: 6 0RF Rx Instructions: For 250 mg dose pack: take 500 mg today (day 1), then 250 mg for 4 days (days 2-5) PO furosemide [Lasix] 40 mg tablet 40 mg PO QAM Qty: 30 0RF carvedilol 25 mg tablet 25 mg PO BID Qty: 60 1RF valsartan 40 mg tablet 40 mg PO BID Qty: 60 1RF lisinopril 2.5 mg tablet 2.5 mg PO DAILY Qty: 30 0RF Discharge Orders: Discharge Order (Routine); Ordered 03/31/21 Ordered By: Benji Velazquez Diet: advance to usual diet Activity on Discharge: As tolerated Stand Alone Forms: Patient Portal Discharge page Care Plan Goals: prevent rehospitalization Health Concerns: cardiomyopathy, chest pain Plan of Treatment: continue taking all your medication as usual and follow up with your Doctor and heart doctor in a week, call for appointment, take Lasix as directed Assessment: as above Discharge Date/Time: 03/31/21 10:49
== END 2021-03-31 10:49 | disposition left against medical advice (07) | DRG 194 ==
LOC: HO.ED 01:18 → HO.EDOVER 06:07 → HO.S3 19:43
PROVIDERS: Admitting Provider Internal Medicine; Emergency Provider Emergency Medicine; Visit Provider Internal Medicine
DX: I11.0 Hypertensive heart disease with heart failure (principal); N17.9 Acute kidney failure, unspecified; I42.9 Cardiomyopathy, unspecified; F10.10 Alcohol abuse, uncomplicated; Z20.822 Contact with and (suspected) exposure to COVID-19; I50.23 Acute on chronic systolic (congestive) heart failure; F17.210 Nicotine dependence, cigarettes, uncomplicated; Z71.6 Tobacco abuse counseling; Z79.899 Other long term (current) drug therapy
CPT/HCPCS: 36415; 71045; 80048; 80053; 80307; 82947; 83880; 84484; 85025; 87635; 93005; 99285; J1940

== ENCOUNTER 2021-04-30 11:22 | Outpatient (REF) | payer OTHER, SELFPAY ==
[2021-04-30 11:49] LABS: MANUAL DIFF FLAG NO
[2021-04-30 12:06] LABS: Basophils Percent Auto 0.3 % (0-2); Hemoglobin 12.8 g/dl (14.0-18.0); Imm Gran Abs Auto 0.01 X10*3/uL (0.00-0.03); Imm Gran Pct Auto 0.2 % (0.0-0.4); Lymphocytes Absolute Auto 0.7 X10*3/uL (1.2-4.9); Lymphocytes Percent Auto 12.7 % (20-40); Mean Corpuscular HGB Conc 32.8 g/dl (31.0-36.0); Mean Corpuscular Hemoglobin 30.3 pg (27.0-33.0); Mean Corpuscular Volume 92.2 fL (80.0-98.0); Mean Platelet Volume 9.8 fL (9.4-12.4); Monocytes Absolute Auto 0.7 X10*3/uL (0.1-1.2); Monocytes Percent Auto 11.2 % (2-11); Neutrophils Absolute Auto 4.4 x10*3/uL (2.0-8.3); Neutrophils Percent Auto 75.6 % (45-73); Platelet Count 195 X10*3/uL (160-400); Red Blood Count 4.23 X10*6/uL (4.60-5.80); Red Cell Distribution Width 13.4 % (11.0-16.0); White Blood Count 5.8 X10*3/uL (4.8-10.8)
[2021-04-30 12:14] LABS: Estimated Average Glucose 100 mg/dL; Hemoglobin A1c % 5.1 %
[2021-04-30 12:40] LABS: Alanine Aminotransferase 15 U/L (0-40); Albumin Level 4.2 g/dL (3.5-5.0); Alkaline Phosphatase 82 U/L (39-117); Anion Gap 13 (12-20); Aspartate Amino Transferase 28 U/L (5-37); Bilirubin Total 0.5 mg/dL (0.0-1.0); Blood Urea Nitrogen 13 mg/dL (9-16); Calcium 9.3 mg/dL (8.4-10.2); Carbon Dioxide 29 mmol/L (22-29); Chloride 101 mmol/L (96-108); Cholesterol 199 mg/dL; Estimated Glomerular Filt Rate 55; Gamma Glutamyl Transpeptidase 38 U/L (11-51); Glucose Fasting 100 mg/dL (60-99); HDL Cholesterol 37 mg/dL; LDL Cholesterol Calculated 146 mg/dl; Potassium 3.9 mmol/L (3.3-5.1); Sodium 139 mmol/L (135-145); Total Protein 7.4 g/dL (6.5-8.0); Triglycerides 83 mg/dL
[2021-04-30 12:50] LABS: TSH reflex Free T4 0.09 uIU/mL (0.32-4.0)
[2021-04-30 13:05] LABS: Folate 16.9 ng/mL (> or = 4.0); Vitamin B12 284 pg/mL (200-900)
[2021-04-30 13:45] LABS: Free T4 (Free Thyroxine) 0.86 ng/dL (0.71-1.85)
[2021-05-01 04:53] LABS: HBc Num1 0.08 S/CO (0.00-0.79); HBsAGNum1 0.27 S/CO (0.00-0.99); Hepatitis B Core Antibody Nonreactive (Nonreactive); Hepatitis B Surface Antigen Negative (Negative); ~Hepatitis B Surface Antibody REACTIVE (Nonreactive); ~Hepatitis C Antibody Nonreactive (Nonreactive)
[2021-05-02 03:46] LABS: ~Hepatitis A Antibody IgM Nonreactive (Nonreactive)
[2021-05-04 13:36] LABS: Vitamin D 25-OH, D2 <4 ng/mL; Vitamin D 25-OH, D3 11 ng/mL; Vitamin D 25-OH, Total 11 ng/mL (30-100)
== END 2021-04-30 11:23 | disposition home or self-care (01) ==
LOC: HO.LAB 11:22
PROVIDERS: PCP Internal Medicine; Visit Provider Nurse Practitioner Acute Care
DX: I42.9 Cardiomyopathy, unspecified (principal)
CPT/HCPCS: 36415; 80053; 80061; 82306; 82607; 82746; 82977; 83036; 84439; 84443; 85025; 86704; 86706; 86709; 86803; 87340

== ENCOUNTER 2022-08-20 14:16 | Emergency (ER) | payer OTHER, SELFPAY ==
--- NOTE | ~2022-08-20 | XR_ITS ---
EXAMINATION: XR CHEST CLINICAL INFORMATION: Chest pain COMPARISON: Previous chest x-ray February 2021 TECHNIQUE: 2 views of the chest were obtained. FINDINGS: The cardiac silhouette is slightly enlarged. This appears decreased in size from February 2021 exam. There is a new left subclavian single chamber pacemaker/AICD device with tip projecting over the right ventricular apex. Hilar and mediastinal contours are unremarkable. The lungs are clear. No pleural effusion or pneumothorax. Bony structures are unremarkable. XR/XR chest 2V IMPRESSION: Slightly enlarged cardiac silhouette. New left subclavian pacemaker/AICD device. No evidence for acute disease in the chest.
[2022-08-20 14:38] VITALS: BP 175/122; PULSE 62; RESP 18; TEMP 36.8; O2SAT 98; BMI 32.1
--- NOTE | 2022-08-20 14:38 | ED.GENADULT ---
HPI - General Adult General Chief complaint: General Medical Stated complaint: L shoulder pain/issues w defibrillator? Time Seen by Provider: 08/20/22 15:47 History of Present Illness HPI narrative: patient with cardiac history of arrhythmia with implantable cardiac defibrillator complains of left shoulder pain worse with movement which began last night and improved this morning when he woke up the shoulder was stiff he moved around and the pain improved, but there is still discomfort when he moves his shoulder certain ways He never had chest pain he never had shortness of breath he never had fainting or feeling faint he never felt palpitations, his defibrillator did not activate he never had any diaphoresis he did not have any vomiting His concern was could there be a problem with the defibrillator irritating the skin or the muscles in his shoulder There is no fever no chills no shortness of breath no pain with deep breath no fainting no feeling faint no numbness weakness or tingling no neck pain Related Data Home Medications Medication Instructions Recorded Confirmed colchicine 0.6 mg tablet 0.3 mg PO BEDTIME 03/26/21 05/28/21 nicotine 21 mg/24 hr daily 1 patch topical DAILY 03/26/21 05/28/21 transdermal patch nitroglycerin 0.4 mg sublingual 0.4 mg sublingual Q5M PRN Chest 03/26/21 05/28/21 tablet Pain spironolactone 25 mg tablet 50 mg PO DAILY 03/26/21 05/28/21 colchicine 0.6 mg tablet 0.6 mg PO DAILY 03/30/21 05/28/21 Previous Rx's Medication Instructions Recorded carvedilol 25 mg tablet 25 mg PO BID #60 tabs 04/30/21 furosemide 40 mg tablet (Lasix) 40 mg PO QAM #30 tabs 04/30/21 valsartan 40 mg tablet 40 mg PO BID #60 tabs 04/30/21 cholecalciferol (vitamin D3) 50 50 mcg PO DAILY #30 caps 05/28/21 mcg (2,000 unit) capsule lisinopril 2.5 mg tablet 2.5 mg PO DAILY #30 tabs 05/28/21 nicotine (polacrilex) 4 mg gum 4 mg buccal Q1H #110 ea 05/28/21 pravastatin 40 mg tablet 40 mg PO BEDTIME #90 tabs 05/28/21 Allergies Allergy/AdvReac Type Severity Reaction Status Date / Time No Known Allergies Allergy Verified 05/28/21 09:08 [No Known Allergies*] [facility] Past Medical History Source: nursing notes reviewed Medical History Alcohol abuse Cardiomyopathy 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 Father No problems noted. Social History Social History Household Members: Family Housing: House Do you presently have visiting nurse or other home services: No Alcohol intake: current Alcohol intake frequency: a few times a week Patient Tobacco Use Status: Current everyday Tobacco user Tobacco use type: Cigarette Cigarette Packs Per Day: 0.5 Cigarettes Per Day: 8 Years Smoked: 20 e-Cigarette/Vaping Use: Never Used Second Hand Smoke Exposure: No Substance Use Type: Crack/Cocaine and Marijuana Advance Directives: No Advance Directives Information Provided: No service: No Current occupational status: employed Cognitive needs: No Hearing needs: No Vision needs: No Physical Exam ED Vital Signs: Vital Signs - 24 hr 08/20/22 14:38 Temperature 98.2 F Pulse Rate 62 Respiratory Rate 18 Blood Pressure 175/122 H Pulse Oximetry 98 Oxygen Delivery Method Room Air BMI result Body Mass Index 32.1 general appearance comfortable relax no acute distress Head is normocephalic atraumatic Neck is supple nontender Respiratory no distress Chest is clear to auscultation bilateral Heart no murmur Chest wall, his implantable defibrillator is palpated there is no surrounding erythema no wound no swelling, no significant tenderness Abdomen soft nontender Extremities full range of motion x4 Left shoulder had a full range of motion but there was some discomfort with extremes of motion on extension and abduction, there was some tenderness to the shoulder which was otherwise normal in appearance and neurovascular intact distal Skin no rash Neuro no focal motor or sensory deficits Course Course Course Narrative: RME: 46yo M w/PMHx HLD, LUIS MANUEL, CHF, cardiomyopathy, myocarditis, s/p defibrillator (placed 1.5 mos ago) c/o Left shoulder/defibrillator site pain and swelling since last night. Denies fever/SOB defibrillator site w/o erythema/warmth, no fluctuance/induration. Mildly tender. EKG, labs, CXR ordered Full HPI, ROS and PE to be performed by primary ED provider. x-ray was nondiagnostic with no acute abnormalities EKG was a normal sinus rhythm, with non specific T-wave abnormalities no acute ST elevations Troponin was 20 which is consistent with all our prior troponins The story was not a cardiac type story with no chest pain shortness of breath, pain not related to exertion and pain was reproducible shoulder pain which resolved by him moving and loosening up his shoulder over the course of the morning Medical Decision Making Lab Data MDM Lab Attestation statement: I reviewed the patient's lab results. 08/20/22 14:57 08/20/22 14:57 Labs: Lab Results 08/20/22 08/20/22 08/20/22 Range/Units 14:57 14:57 14:57 WBC 6.5 (4.8-10.8) X10*3/uL RBC 4.27 L (4.60-5.80) X10*6/uL Hgb 12.8 L (14.0-18.0) g/dl Hct 39.5 L (42.0-52.0) % MCV 92.5 (80.0-98.0) fL MCH 30.0 (27.0-33.0) pg MCHC 32.4 (31.0-36.0) g/dl RDW 12.7 (11.0-16.0) % Plt Count 219 (160-400) X10*3/uL MPV 10.1 (9.4-12.4) fL Immature Gran % (Auto) 0.2 (0.0-0.4) % Neut % (Auto) 58.9 (45-73) % Lymph % (Auto) 27.1 (20-40) % [place] % (Auto) 6.3 (2-11) % Eos % (Auto) 6.6 H (0-4) % Baso % (Auto) 0.9 (0-2) % Lymph # (Auto) 1.8 (1.2-4.9) X10*3/uL [place] # (Auto) 0.4 (0.1-1.2) X10*3/uL Eos # (Auto) 0.4 (0.0-0.4) X10*3/uL Baso # (Auto) 0.1 (0.0-0.2) X10*3/uL Abs Immat Gran (auto) 0.01 (0.00-0.03) X10*3/uL Absolute Neuts (auto) 3.9 (2.0-8.3) x10*3/uL Absolute Nucleated RBC 0.000 (0.0-0.012) X10*3/uL Nucleated RBC % (auto) 0.0 (0.0-0.2) /100WBC PT 12.1 (10.0-13.1) SEC INR 1.1 (0.9-1.1) Sodium 142 (135-145) mmol/L Potassium 3.9 (3.3-5.1) mmol/L Chloride 110 H (96-108) mmol/L Carbon Dioxide 26 (22-29) mmol/L Anion Gap 10 L (12-20) BUN 16 (9-16) mg/dL Creatinine 1.19 (0.5-1.4) mg/dL Estim Creat Clear Calc 100.3 Estimated GFR > 60 Random Glucose 89 (60-115) mg/dL Calcium 8.9 (8.4-10.2) mg/dL Magnesium 2.1 (1.6-2.6) mg/dL Total Bilirubin 0.4 (0.0-1.0) mg/dL Direct Bilirubin 0.1 (0.0-0.5) mg/dL AST 21 (5-37) U/L ALT 15 (0-40) U/L Alkaline Phosphatase 85 (39-117) U/L Troponin I High Sens (<3.5-35.0) ng/L B-Natriuretic Peptide (<100) pg/mL Total Protein 6.6 (6.5-8.0) g/dL Albumin 3.9 (3.5-5.0) g/dL 08/20/22 08/20/22 Range/Units 14:57 14:57 WBC (4.8-10.8) X10*3/uL RBC (4.60-5.80) X10*6/uL Hgb (14.0-18.0) g/dl Hct (42.0-52.0) % MCV (80.0-98.0) fL MCH (27.0-33.0) pg MCHC (31.0-36.0) g/dl RDW (11.0-16.0) % Plt Count (160-400) X10*3/uL MPV (9.4-12.4) fL Immature Gran % (Auto) (0.0-0.4) % Neut % (Auto) (45-73) % Lymph % (Auto) (20-40) % [place] % (Auto) (2-11) % Eos % (Auto) (0-4) % Baso % (Auto) (0-2) % Lymph # (Auto) (1.2-4.9) X10*3/uL [place] # (Auto) (0.1-1.2) X10*3/uL Eos # (Auto) (0.0-0.4) X10*3/uL Baso # (Auto) (0.0-0.2) X10*3/uL Abs Immat Gran (auto) (0.00-0.03) X10*3/uL Absolute Neuts (auto) (2.0-8.3) x10*3/uL Absolute Nucleated RBC (0.0-0.012) X10*3/uL Nucleated RBC % (auto) (0.0-0.2) /100WBC PT (10.0-13.1) SEC INR (0.9-1.1) Sodium (135-145) mmol/L Potassium (3.3-5.1) mmol/L Chloride (96-108) mmol/L Carbon Dioxide (22-29) mmol/L Anion Gap (12-20) BUN (9-16) mg/dL Creatinine (0.5-1.4) mg/dL Estim Creat Clear Calc Estimated GFR Random Glucose (60-115) mg/dL Calcium (8.4-10.2) mg/dL Magnesium (1.6-2.6) mg/dL Total Bilirubin (0.0-1.0) mg/dL Direct Bilirubin (0.0-0.5) mg/dL AST (5-37) U/L ALT (0-40) U/L Alkaline Phosphatase (39-117) U/L Troponin I High Sens 20.9 (<3.5-35.0) ng/L B-Natriuretic Peptide 172 H (<100) pg/mL Total Protein (6.5-8.0) g/dL Albumin (3.5-5.0) g/dL Discharge Plan Discharge Clinical Impression: Acute pain of left shoulder Patient Disposition: Home, Self-Care Additional Instructions: there is no sign of any infection or is soft tissue swelling around the implanted defibrillator Symptoms of left shoulder pain worse with movement are not likely to be from your heart Follow with your carbon paper coating machine setter as scheduled next week and bring the copy of the EKG we provided Use Tylenol as needed for any shoulder pain that is worse with movement Return to the ER any time for chest pain shortness of breath palpitations fainting or feeling faint any worse condition or any concerns Prescriptions: No Action colchicine 0.6 mg tablet 0.6 mg PO DAILY colchicine 0.6 mg tablet 0.3 mg PO BEDTIME nitroglycerin 0.4 mg tablet, sublingual 0.4 mg sublingual Q5M PRN (Reason: Chest Pain) nicotine 21 mg/24 hr patch 24 hour 1 patch topical DAILY spironolactone 25 mg tablet 50 mg PO DAILY furosemide [Lasix] 40 mg tablet 40 mg PO QAM Qty: 30 0RF carvedilol 25 mg tablet 25 mg PO BID Qty: 60 1RF valsartan 40 mg tablet 40 mg PO BID Qty: 60 1RF lisinopril 2.5 mg tablet 2.5 mg PO DAILY Qty: 30 2RF pravastatin 40 mg tablet 40 mg PO BEDTIME Qty: 90 0RF cholecalciferol (vitamin D3) 50 mcg (2,000 unit) capsule 50 mcg PO DAILY Qty: 30 0RF nicotine (polacrilex) 4 mg gum 4 mg buccal Q1H Qty: 110 0RF Interventions: ED Discharge Assessment Last Done: 08/20/22 18:09 Discharge Date/Time: 08/20/22 18:10
--- NOTE | 2022-08-20 14:42 | ECG_ITS ---
Test Reason : CHEST PAIN Blood Pressure : / mmHG Vent. Rate : 072 BPM Atrial Rate : 072 BPM P-R Int : 192 ms QRS Dur : 092 ms QT Int : 404 ms P-R-T Axes : 055 -07 229 degrees QTc Int : 442 ms Normal sinus rhythm Minimal voltage criteria for LVH, may be normal variant ( [place] product ) ST & T wave abnormality, consider inferolateral ischemia Abnormal ECG When compared with ECG of 30-MAR-2021 07:33, Premature atrial complexes are no longer Present WA interval has decreased Referred By: Bettie Garcia Electronically Signed By:DARCY MENDIETA
[2022-08-20 15:04] LABS: MANUAL DIFF FLAG NO
[2022-08-20 15:06] LABS: Basophils Absolute Auto 0.1 X10*3/uL (0.0-0.2); Basophils Percent Auto 0.9 % (0-2); Eosinophils Absolute Auto 0.4 X10*3/uL (0.0-0.4); Eosinophils Percent Auto 6.6 % (0-4); Hematocrit 39.5 % (42.0-52.0); Hemoglobin 12.8 g/dl (14.0-18.0); Imm Gran Abs Auto 0.01 X10*3/uL (0.00-0.03); Imm Gran Pct Auto 0.2 % (0.0-0.4); Lymphocytes Absolute Auto 1.8 X10*3/uL (1.2-4.9); Lymphocytes Percent Auto 27.1 % (20-40); Mean Corpuscular HGB Conc 32.4 g/dl (31.0-36.0); Mean Corpuscular Volume 92.5 fL (80.0-98.0); Mean Platelet Volume 10.1 fL (9.4-12.4); Monocytes Absolute Auto 0.4 X10*3/uL (0.1-1.2); Monocytes Percent Auto 6.3 % (2-11); Neutrophils Absolute Auto 3.9 x10*3/uL (2.0-8.3); Neutrophils Percent Auto 58.9 % (45-73); Platelet Count 219 X10*3/uL (160-400); Red Blood Count 4.27 X10*6/uL (4.60-5.80); Red Cell Distribution Width 12.7 % (11.0-16.0); White Blood Count 6.5 X10*3/uL (4.8-10.8)
[2022-08-20 15:10] LABS: INTERNATIONAL NORM RATIO 1.1 (0.9-1.1); Prothrombin Time 12.1 SEC (10.0-13.1)
[2022-08-20 15:33] LABS: Alanine Aminotransferase 15 U/L (0-40); Albumin Level 3.9 g/dL (3.5-5.0); Alkaline Phosphatase 85 U/L (39-117); Anion Gap 10 (12-20); Aspartate Amino Transferase 21 U/L (5-37); B Type Natriuretic Peptide 172 pg/mL (<100); Bilirubin Direct 0.1 mg/dL (0.0-0.5); Bilirubin Total 0.4 mg/dL (0.0-1.0); Blood Urea Nitrogen 16 mg/dL (9-16); Calcium 8.9 mg/dL (8.4-10.2); Carbon Dioxide 26 mmol/L (22-29); Chloride 110 mmol/L (96-108); Creatinine Clr Calc Pharmacy 100.3; Estimated Glomerular Filt Rate > 60; Glucose Random 89 mg/dL (60-115); Magnesium 2.1 mg/dL (1.6-2.6); Potassium 3.9 mmol/L (3.3-5.1); Sodium 142 mmol/L (135-145); Total Protein 6.6 g/dL (6.5-8.0); Troponin-I High Sensitivity 20.9 ng/L (<3.5-35.0)
== END 2022-08-20 18:10 | disposition home or self-care (01) ==
PROVIDERS: Physician Assistant; Emergency Provider Emergency Medicine; PCP Internal Medicine
DX: M25.512 Pain in left shoulder (principal); I42.9 Cardiomyopathy, unspecified; I11.0 Hypertensive heart disease with heart failure; Z95.810 Presence of automatic (implantable) cardiac defibrillator
CPT/HCPCS: 36415; 71046; 80048; 80076; 83735; 83880; 84484; 85025; 85610; 93005; 99283

== ENCOUNTER 2023-05-05 09:13 | Outpatient (AMB) | payer OTHER, SELFPAY ==
--- NOTE | 2023-05-05 09:15 | MHC.PC.OV ---
Vital Signs 05/05/23 09:19 05/05/23 12:26 Height 6 ft Weight 248 lb BMI 33.6 BP 142/112 H 148/90 H Blood Pressure Location Lt brachial Lt brachial Position Sitting Sitting Intake Visit Reasons: Back/ Kidney Pain Intake Note: Patient here for back pain Regulatory Process Manager Required: No Accompanied by: Self / Same As Patient Allergies No Known Allergies [No Known Allergies*] Allergy (Verified 05/05/23 09:31) Medication List - Last Reconciled 05/05/23 by Lazara Green MD nitroglycerin 0.4 mg sublingual Q5M PRN pravastatin 40 mg PO BEDTIME spironolactone 50 mg PO DAILY valsartan 40 mg PO BID Tobacco use date assessed: 05/05/23 Dental Screening Dental Screen Date: 05/05/23 Did you have a dental visit in the last 12 months?: Yes Did you have a dental problem in the last 6 months where you did not have access to dental care?: No Was dental information given to patient?: Patient has dentist HPI HPI Comments History of Present Illness Details This is a 47-year-old male with congestive heart failure with reduced ejection fraction, hypertension and low vitamin-D that comes today complaining of right costovertebral angle tenderness that has been bothering him for few days. No associated symptoms. No urinary complaint. No history of kidney stones in the past. Has not gain 5 lb in a week. Last echocardiogram was 2020 showing ejection fraction of 20-25% and this will be repeated. Blood pressure elevated today and will be recheck in 3 weeks by nurse navigator. Vitamin-D levels will also be recheck as well. He wants to quit smoking and I started him on Chantix he was advised that if depression or suicidal ideation presents that he should stop immediately taking Chantix. Patient was advised to take 0.5 mg once a day for the 1st 3 days and then increase it to twice a day. Patient is aware that is a 3 months treatment and that dose will be increased the 2nd month. 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 Father No problems noted. Social History Household Members: Family Housing: House Do you presently have visiting nurse or other home services: No Alcohol intake: current Alcohol intake frequency: a few times a month Alcohol type: hard liquor Patient Tobacco Use Status: Current everyday Tobacco user Tobacco use type: Cigarette Cigarettes Per Day: 5 Years Smoked: 20 e-Cigarette/Vaping Use: Never Used Second Hand Smoke Exposure: No Substance Use Type: Crack/Cocaine and Marijuana service: No Current occupational status: unemployed Cognitive needs: No Hearing needs: No Vision needs: No Questionnaire PHQ-9 Over the last 2 weeks, how often have you been bothered by any of the following problems? 1. Little interest or pleasure in doing things: not at all 2. Feeling down, depressed, or hopeless: not at all 3. Trouble falling or staying asleep, or sleeping too much: several days 4. Feeling tired or having little energy: not at all 5. Poor appetite or overeating: not at all 6. Feeling bad about yourself - or that you are a failure or have let yourself or your family down: not at all 7. Trouble concentrating on things, such as reading the newspaper or watching television: not at all 8. Moving or speaking so slowly that other people could have noticed. Or the opposite - being so fidgety or restless that you have been moving around a lot more than usual: not at all 9. Thoughts that you would be better off or of hurting yourself in some way: not at all Total score: 1 Depression Screening Interpretation: Negative Depression Screening Done: Yes 06309 - PHQ-9 Billing: Yes Source: Developed by Drs. Grover Matta, Mary Gutierrez, Cornelio Oakley and colleagues, with an educational ant from [employer]. Thrive Questionnaire Date Thrive assessed: 05/05/23 I am a: Patient What is your living situation today?: I have a steady place to live Within the past 12 months, did the food you bought not last and you didn't have the money to get more?: Never true Within the past 12 months, did you worry whether your food would run out before you got money to buy more?: Never true Do you have trouble paying for medicines?: No Do you have trouble getting transportation to medical appointments?: No Do you have trouble paying your heating and electricity bill?: No Do you have trouble taking care of your child, family member or friend?: No Do you have trouble with day-to-day activities such as bathing, preparing meals, shopping, managing finances, etc.?: No Are you currently unemployed and looking for a job?: No Are you interested in more education?: No Please select the resources that you would like help with: None Currently or been in a relationship where the following occur: no concerns reported THRIVE Score: 0 AUDIT C Alcohol Use Questionnaire (AUDIT-C) 1. How often do you have a drink containing alcohol?: Monthly or less 2. How many drinks containing alcohol do you have on a typical day when you are drinking?: 1 or 2 3. How often do you have six or more drinks on one occasion?: Never Total Score: 1 CHERRIE-7 AMB Questionnaire CHERRIE-7 Date CHERRIE - 7 assessed: 05/05/23 Feeling nervous, anxious, or on edge: 0 = Not at all Not being able to stop or control worryin = Not at all Worrying too much about different things: 0 = Not at all Trouble relaxin = Not at all Being so restless that it is hard to sit still: 0 = Not at all Becoming easily annoyed or irritable: 0 = Not at all Feeling afraid as if something awful might happen: 0 = Not at all Total CHERRIE-7 score (0-4 normal; 5-9 mild; 10-14 moderate; 15-21 severe): 0 Source: Developed by Drs. Grover Matta, Mary Gutierrez, Cornelio Oakley and colleagues, with an educational ant from [employer]. CHERRIE-7 Assessment Billing CHERRIE-7 Assessment Tool: CHERRIE-7 Assessment 01629 Review of Systems Const All systems reviewed & are unremarkable except as noted in HPI and below Eyes Reports no additional complaints, Denies change in vision and Denies other visual disturbances Card Denies chest pain at rest, Denies chest pain with activity, Denies edema, Denies irregular heart rhythm, Denies claudication, Denies dyspnea, Denies dyspnea on exertion, Denies orthopnea, Denies paroxysmal nocturnal dyspnea and Denies slow heart rate Resp Denies cough, Denies dyspnea and Denies dyspnea on exertion GI Denies abdominal pain, Denies change in bowel habits, Denies excessive flatus, Denies nausea and Denies vomiting Denies urinary hesitancy, Denies urinary incontinence and Denies urinary urgency Musc Denies abnormal gait, Denies atrophy, Denies deformity and Denies limited range of motion Skin/Breast Denies bleeding lesions, Denies changing lesions and Denies rash Neuro Denies abnormal gait, Denies behavioral changes and Denies lack of coordination Psych Denies behavioral changes Physical exam (Primary Care) Vital Signs: Last Vital Signs BP 142/112 H 05/05/23 09:19 BMI result Body Mass Index 33.6 Tobacco/Smoking Status: Tobacco use Status Tobacco use date assessed 05/05/23 05/05/23 09:27 Patient Tobacco Use Status Current everyday Tobacco 05/05/23 09:26 Tobacco use type Cigarette 05/05/23 09:26 e-Cigarette/Vaping Use Never Used 05/05/23 09:26 PHQ-9: PHQ-9 Score PHQ-9: Total score 1 05/05/23 09:36 Depression Screening Interpretation: Negative Thrive Assessment: Date of Thrive Assessment Date Thrive assessed 05/05/23 05/05/23 09:19 Currently or been in a relationship where the following occur: no concerns reported Eyes General: appearance normal, both eyes and all related structures Eyelids: Yes eyelids normal Conjunctivae: conjunctivae normal Neck Neck: Yes normal visual inspection and Yes supple Resp Effort & Inspection: normal respiratory effort Auscultation: clear to auscultation bilaterally Cardio Jugular venous distension: no JVD Rate: regular rate Rhythm: regular rhythm Heart sounds: Murmur heart sound present Extrem General: Yes full ROM Assessment and Plan Assessment & Plan (1) 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 The goal is to not gain 5 lb in a week. Continue diuretics. (2) Hypertension: Code(s): I10 - Essential (primary) hypertension Qualifiers: Hypertension type: primary hypertension Qualified Code(s): I10 - Essential (primary) hypertension Plan: Continue valsartan and spironolactone. Blood pressure goal is equal or less than 130/80. (3) Costovertebral angle tenderness: Code(s): M54.9 - Dorsalgia, unspecified Plan: X-ray KUB ordered. (4) Vitamin D deficiency: Code(s): E55.9 - Vitamin D deficiency, unspecified Plan: Check vitamin-D levels. Orders: Orders Vitamin D 25-OH Total Today E55.9 - Vitamin D deficiency, unspecified Lipid Panel Today E78.5 - Hyperlipidemia, unspecified NT-proBNP Today I50.23 - Acute on chronic systolic (congestive) heart failure Thyroid Stimulating Hormone Today R79.89 - Other specified abnormal findings of blood chemistry XR KUB Today M54.9 - Dorsalgia, unspecified Comprehensive [place]. 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
[2023-05-05 09:19] VITALS: BP 142/112; BMI 33.6
[2023-05-05 12:26] VITALS: BP 148/90
== END 2023-05-05 09:41 | disposition home or self-care (01) ==
PROVIDERS: PCP Internal Medicine; Visit Provider Internal Medicine
DX: I11.0 Hypertensive heart disease with heart failure (principal); I50.20 Unspecified systolic (congestive) heart failure; M54.9 Dorsalgia, unspecified; E55.9 Vitamin D deficiency, unspecified
CPT/HCPCS: 99214

== ENCOUNTER 2024-03-18 11:45 | Outpatient (AMB) | payer OTHER, SELFPAY ==
[2024-03-18 12:24] VITALS: BP 158/130; BMI 35.3
--- NOTE | 2024-03-18 12:24 | A.OFFPC_ITS ---
Vital Signs 03/18/24 12:24 03/18/24 13:04 Height 6 ft Weight 260 lb BMI 35.3 BP 158/130 H 150/110 H Blood Pressure Location Lt brachial Lt brachial Position Sitting Sitting Intake Visit Reasons: annual exam Intake Note: Patient here for a physical exam Legal Examiner Required: No Accompanied by: Self / Same As Patient Allergies No Known Allergies [No Known Allergies*] Allergy (Verified 03/18/24 12:50) Medication List - Last Reconciled 03/18/24 by Lazara Green MD dapagliflozin propanediol (Farxiga) 10 mg PO DAILY methylphenidate HCl ER (Concerta) 27 mg PO DAILY sacubitril-valsartan 97-103 mg (Entresto) 1 tab PO BID spironolactone 50 mg PO DAILY Tobacco use date assessed: 05/05/23 Dental Screening Dental Screen Date: 05/05/23 HPI HPI Comments History of Present Illness Details The patient is a 48-year-old male presenting for an annual physical exam. His past medical history includes hypertension and heart failure with a previously recorded ejection fraction of 20-25% in 2020. He reports ongoing management for these conditions, including medications such as Farxiga, Concerta, Entresto, and spironolactone. The patient's hypertension has been noted to be persistently elevated, requiring additional intervention. He acknowledges that his smoking habit might be a contributing factor; currently, he smokes around ten cigarettes a day. He expresses a desire to quit smoking but finds it challenging due to difficulties accessing cessation aids like patches. Although he has been informed of elevated blood pressure being a significant concern, no specific dates or a new ejection fraction have been updated on file since 2020. As he approaches screening age, colonoscopy was discussed but not yet performed. 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 Father No problems noted. Social History (Updated 03/18/24 @ 12:56 by Lazara Green MD) Household Members: Family Housing: House Do you presently have visiting nurse or other home services: No Alcohol intake: current Alcohol intake frequency: a few times a month Alcohol type: hard liquor Patient Tobacco Use Status: Current everyday Tobacco user Tobacco use type: Cigarette Cigarettes Per Day: 8 Years Smoked: 20 e-Cigarette/Vaping Use: Never Used Second Hand Smoke Exposure: No Substance Use Type: Crack/Cocaine and Marijuana service: No Current occupational status: unemployed Cognitive needs: No Hearing needs: No Vision needs: No Questionnaire PHQ-9 Over the last 2 weeks, how often have you been bothered by any of the following problems? 1. Little interest or pleasure in doing things: nearly every day 2. Feeling down, depressed, or hopeless: not at all 3. Trouble falling or staying asleep, or sleeping too much: more than half the days 4. Feeling tired or having little energy: more than half the days 5. Poor appetite or overeating: more than half the days 6. Feeling bad about yourself - or that you are a failure or have let yourself or your family down: not at all 7. Trouble concentrating on things, such as reading the newspaper or watching television: not at all 8. Moving or speaking so slowly that other people could have noticed. Or the opposite - being so fidgety or restless that you have been moving around a lot more than usual: not at all 9. Thoughts that you would be better off or of hurting yourself in some way: not at all Total score: 9 Depression Screening Interpretation: Positive Depression Screening Follow-up: Existing condition and Follow-up Visit Requested Depression Screening Done: Yes 56985 - PHQ-9 Billing: Yes Source: Developed by Drs. Grover Matta, Mary Gutierrez, Cornelio Oakley and colleagues, with an educational ant from [email or web address] [email or web address]). Thrive Questionnaire Date Thrive assessed: 05/05/23 I am a: Patient What is your living situation today?: I have a place to live, but I am worried about losing it in the future Within the past 12 months, did the food you bought not last and you didn't have the money to get more?: Never true Within the past 12 months, did you worry whether your food would run out before you got money to buy more?: Never true Do you have trouble paying for medicines?: No Do you have trouble getting transportation to medical appointments?: No Do you have trouble paying your heating and electricity bill?: No Do you have trouble taking care of your child, family member or friend?: No Do you have trouble with day-to-day activities such as bathing, preparing meals, shopping, managing finances, etc.?: No Are you currently unemployed and looking for a job?: Yes Are you interested in more education?: Yes Please select the resources that you would like help with: None Currently or been in a relationship where the following occur: No concerns reported THRIVE Score: 1 AUDIT C Alcohol Use Questionnaire (AUDIT-C) 1. How often do you have a drink containing alcohol?: Monthly or less 2. How many drinks containing alcohol do you have on a typical day when you are drinking?: 1 or 2 3. How often do you have six or more drinks on one occasion?: Less than monthly Total Score: 2 Score Reviewed/Action Taken: No CHERRIE-7 AMB Questionnaire CHERRIE-7 Date CHERRIE - 7 assessed: 05/05/23 Feeling nervous, anxious, or on edge: 0 = Not at all Not being able to stop or control worryin = Not at all Worrying too much about different things: 0 = Not at all Trouble relaxin = Not at all Being so restless that it is hard to sit still: 0 = Not at all Becoming easily annoyed or irritable: 0 = Not at all Feeling afraid as if something awful might happen: 0 = Not at all Total CHERRIE-7 score (0-4 normal; 5-9 mild; 10-14 moderate; 15-21 severe): 0 Source: Developed by Drs. Grover Matta, Mary Gutierrez, Cornelio Oakley and colleagues, with an educational ant from [email or web address] [email or web address]). CHERRIE-7 Assessment Billing CHERRIE-7 Assessment Tool: CHERRIE-7 Assessment 13940 Review of Systems Const All systems reviewed & are unremarkable except as noted in HPI and below Card Denies chest pain at rest, Denies chest pain with activity, Denies edema, Denies irregular heart rhythm, Denies claudication, Denies dyspnea, Denies dyspnea on exertion, Denies orthopnea, Denies paroxysmal nocturnal dyspnea and Denies slow heart rate Resp Denies cough, Denies dyspnea and Denies dyspnea on exertion GI Denies abdominal pain, Denies change in bowel habits, Denies excessive flatus, Denies nausea and Denies vomiting Denies urinary hesitancy, Denies urinary incontinence and Denies urinary urgency Musc Denies abnormal gait, Denies atrophy, Denies deformity and Denies limited range of motion Skin/Breast Denies bleeding lesions, Denies changing lesions and Denies rash Neuro Denies abnormal gait, Denies behavioral changes and Denies lack of coordination Psych Denies behavioral changes Physical exam (Primary Care) Vital Signs: Last Vital Signs BP 150/110 H 03/18/24 13:04 BMI result Body Mass Index 35.3 BMI Assessment/Plan discussion: High BMI High, discussed plan: lifestyle, weight reduction, dietary and physical activity Tobacco/Smoking Status: Tobacco use Status Tobacco use date assessed 05/05/23 03/18/24 12:32 Patient Tobacco Use Status Current everyday Tobacco 03/18/24 12:56 Tobacco use type Cigarette 03/18/24 12:56 e-Cigarette/Vaping Use Never Used 03/18/24 12:56 Are you ready to quit: Yes Tobacco cessation counseling provided: Yes Items discussed: Nicotine replacement Relapse Prevention: discussed the importance of a supportive environment, discussed extending NRT, discussed negative mood or depression after quitting, weight gain after smoking is common and discussed dietary, exercise and/or l ifestyle changes Number of minutes spent counselin CPT code: 25013 - 4-10 Minutes PHQ-9: PHQ-9 Score PHQ-9: Total score 9 03/18/24 12:57 Depression Screening Interpretation: Positive Depression Screening Follow-up: Existing condition and Follow-up Visit Requested Thrive Assessment: Date of Thrive Assessment Date Thrive assessed 05/05/23 03/18/24 12:32 Currently or been in a relationship where the following occur: No concerns reported HENMT Head: Yes normal to inspection, Yes normocephalic and Yes atraumatic Ears: external ears normal Eyes General: appearance normal, both eyes and all related structures Eyelids: Yes eyelids normal Conjunctivae: conjunctivae normal Neck Neck: Yes normal visual inspection and Yes supple Resp Effort & Inspection: normal respiratory effort Auscultation: clear to auscultation bilaterally Cardio Jugular venous distension: no JVD Rate: regular rate Rhythm: regular rhythm Heart sounds: Murmur heart sound present GI Inspection: Yes normal to inspection Palpation (GI): Soft to palpation and nontender Auscultation: normal bowel sounds Skin General skin exam: no rashes or lesions noted Neuro General: no focal motor deficits Extrem General: Yes full ROM Psych Appearance: grossly normal Office Procedures Flu Questionnaire Does the patient have a severe egg allergy?: No Immunizations Fluarix Triv [id number] (PF) 45 mcg (15 mcg x 3)/0.5 mL IM syringe Performing Provider: Lazara Green MD 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 I50.20; I51.4 Additional Codes CHERRIE-7 Assessment Billing - CHERRIE-7 Assessment Tool: CHERRIE-7 Assessment 02052 ([id number]) PHQ-9 - 15411 - PHQ-9 Billing: Yes ([id number]) Vital Signs *Quality* - CPT code: 38296 - 4-10 Minutes ([id number]) Time Spent (min) 31 Assessment & Plan Assessment & Plan (1) Physical exam: Code(s): Z00.00 - Encounter for general adult medical examination without abnormal findings Category: Medical (2) 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: Code(s): I50.20 - Unspecified systolic (congestive) heart failure; I51.4 - Myocarditis, unspecified Category: Medical Plan - Adjust antihypertensive medication regimen to better control blood pressure - Encourage smoking cessation and provide prescription for nicotine patches Step 2) - Recommend follow-up cardiovascular assessments to evaluate current ejection fraction - Consider colonoscopy referral for colorectal cancer screening - Order fasting blood work to assess cardiovascular and general health indicators Patient was informed and verbally consented to the use of an ambient scribe for clinic note documentation during this visit. During the visit, I addressed the patient's ongoing management for hypertension and heart failure. I emphasized the importance of controlling his blood pressure to prevent further strain on the heart. I explained that while current medications have been helpful, an adjustment is necessary due to persistent elevation. Given his smoking habit, I discussed the utility of nicotine patches to aid smoking cessation and provided a prescription. We reviewed the need for regular monitoring of his cardiac health, including updated evaluations of his ejection fraction. I recommended a screening colonoscopy given his age, and we discussed the implications of not having knowledge of his biological parents' health due to adoption. I confirmed that the patient understands and agrees with the plan moving forward. Orders: Orders Lipid Panel Today E78.5 - Hyperlipidemia, unspecified Vitamin D 25-OH Total Today E55.9 - Vitamin D deficiency, unspecified NT-proBNP Today I42.9 - Cardiomyopathy, unspecified Influenza [id number] Immunization Today Z23 - Encounter for immunization Comprehensive Met. Panel Today I42.9 - Cardiomyopathy, unspecified Thyroid Stimulating Hormone Today R79.89 - Other specified abnormal findings of blood chemistry Free T4 (Free Thyroxine) Today R79.89 - Other specified abnormal findings of blood chemistry Medications: New amlodipine 5 mg PO DAILY 90 tabs 1RF 90 days Patient Instructions: - Take prescribed medications as directed, and monitor blood pressure regularly - Use nicotine patches as prescribed to assist with smoking cessation - Schedule an appointment for fasting blood work - Arrange for follow-up evaluation for heart health, including possible ejection fraction assessment - Consider scheduling a colonoscopy for preventive screening - Return immediately if experiencing any significant changes in symptoms or health concerns
[2024-03-18 13:04] VITALS: BP 150/110
== END 2024-03-18 13:05 | disposition home or self-care (01) ==
PROVIDERS: PCP Internal Medicine; Visit Provider Internal Medicine
DX: Z00.00 Encounter for general adult medical examination without abnormal findings (principal); I50.20 Unspecified systolic (congestive) heart failure; I51.4 Myocarditis, unspecified; Z23 Encounter for immunization

== ENCOUNTER → 2024-03-18 11:45 | Outpatient (BNVA) | payer OTHER, SELFPAY | PROVIDERS: PCP Internal Medicine; Visit Provider Internal Medicine | DX: Z00.00 Encounter for general adult medical examination without abnormal findings (principal); I11.0 Hypertensive heart disease with heart failure; I50.20 Unspecified systolic (congestive) heart failure; I51.4 Myocarditis, unspecified; E78.5 Hyperlipidemia, unspecified; E55.9 Vitamin D deficiency, unspecified; I42.9 Cardiomyopathy, unspecified; R79.89 Other specified abnormal findings of blood chemistry; F17.210 Nicotine dependence, cigarettes, uncomplicated; Z71.6 Tobacco abuse counseling; Z20.821 Contact with and (suspected) exposure to Zika virus | CPT/HCPCS: 90471; 96127; 99396 ==

== ENCOUNTER 2024-07-07 09:11 | Emergency (ER) | payer OTHER, SELFPAY ==
--- NOTE | ~2024-07-07 | CT_ITS ---
EXAMINATION: CTA NECK WITH CONTRAST (STROKE) CTA BRAIN WITH CONTRAST (STROKE) CLINICAL INFORMATION: Left lower extremity weakness and numbness. Concerning stroke. COMPARISON: None available. TECHNIQUE: CTA of the head and neck was performed in the axial plane from the mediastinum to the skull vertex using 70 mL Omnipaque 350 intravenous contrast. Additional reformatted multiplanar images including maximum intensity projection MIP images are generated on the CT workstation. This CT examination was performed using dose optimization techniques as appropriate, variously including the following: *Automated exposure control *Adjustment of mA and/or kV according to patient size (this includes techniques or standardized protocols for targeted exams where dose is matched to indication/reason for exam; i.e. extremities or head) *Use of iterative reconstruction technique. DLP: 1507 mGy centimeter. FINDINGS: The degree of stenosis determined by criteria similar to NASCET. Brain: There is a hypodensity and daigle-white matter effacement in the right parietal lobe and involving the right precentral gyrus.. Multifocal patchy hypodensities in a watershed distribution right cerebral hemisphere. Old lacunar infarcts, basal ganglia and extracapsular more conspicuous on the right side. Focal encephalomalacia with volume loss and extra-axial CSF prominence in the left occipital lobe. No acute intracranial hemorrhage, midline shift hydrocephalus or herniation. Chest CTA: Thoracic aortic arch is patent with normal diameter without focal stenosis or intimal flap. No IV contrast extravasation. Neck CTA: Right CCA: Normal patency. No focal stenosis. No intimal flap. Right ICA: No gross plaque. Normal patency. No focal stenosis. No intimal flap. Tortuosity in the distal segment. Left CCA: Normal patency. No focal stenosis. No intimal flap. Left ICA: No gross plaque. Normal patency. No focal stenosis. No intimal flap. Tortuosity in the distal segment. V1/V2 segments: Normal patency. No focal stenosis. No intimal flap. Codominant vertebral arteries. The origin is directly from the subclavian arteries and both ICAs. Brain CTA: Anterior cerebral circulation: ICAs: Normal patency. No focal stenosis. No abrupt cut off. MCA's: Decreased diameter of the right M1 M2 segment. No focal stenosis. No abrupt cut off. Normal patency. ACAs: Normal patency. Small caliber right A1 segment. No abrupt cutoff. No focal stenosis. The ophthalmic arteries are patent without irregularity at the origin. The anterior communicating artery is not patent. Left posterior communicating artery is patent. Posterior cerebral circulation: V3/V4 segments: Normal patency. No focal stenosis.. Codominant. Posterior inferior cerebellar arteries are patent. Anterior inferior cerebellar arteries are patent. Basilar artery is patent without focal stenosis or intimal flap. Superior cerebellar arteries are patent. pack room operator: Normal patency. No focal stenosis. No abrupt cut off. Ancillary findings: There is a left PICC line/catheter into the SVC/right atrium. Prominent mediastinal lymph nodes. Pulmonary mosaic pattern. Spondylosis C5-6 and C6-7. Normal enhancement pattern without intraluminal filling defects in the main cerebral venous sinuses. CT/CT angio head neck IMPRESSION: No main cerebral artery occlusion or embolus. No high degree stenosis or dissection vessels of the neck. No gross aneurysm. White matter disease with the multifocal old lacunar infarcts related to small vessel occlusive disease. Acute/subacute nonhemorrhagic ischemia involving posterior branches of the right MCA cannot be entirely excluded.. This critical test result is communicated to: Dr. Nasim Fenton in the emergency department on July 07, 2024 at 11:28 AM. Electronically signed by: Jere Mcpherson MD 07/07/2024 11:55 AM EDT
[2024-07-07 09:14] VITALS: BP 149/104; PULSE 95; RESP 18; TEMP 36.6; O2SAT 96; BMI 35.6
--- NOTE | 2024-07-07 09:19 | ECG_ITS ---
Test Reason : neuro Blood Pressure : */* mmHG Vent. Rate : 84 BPM Atrial Rate : 84 BPM P-R Int : 172 ms QRS Dur : 102 ms QT Int : 380 ms P-R-T Axes : 49 -5 189 degrees QTcB Int : 449 ms Normal sinus rhythm Moderate voltage criteria for LVH, may be normal variant ( R in aVL , [place] product ) ST & T wave abnormality, consider inferolateral ischemia Abnormal ECG When compared with ECG of 20-Aug-2022 14:48, T wave inversion less evident in Inferior leads Referred By: Generic ED Physician Electronically Signed By: Lan Armijo
--- NOTE | 2024-07-07 09:54 | ED.NEUROSD ---
HPI - Neuro Symptoms/Deficit General Chief Complaint: Neuro Symptoms/Deficit Stated Complaint: Left leg feels numb/ was at [facility] [place] friday Time Seen by Provider: 07/07/24 09:27 Source: patient Limitations: no limitations History of Present Illness HPI Narrative: This is a 48 years old the patient presented to the emergency department with a chief complaint of left lower extremity numbness and weakness. Symptoms started about 2 weeks ago he visited [facility] Emergency Department he stated that he had an MRI of the lower spine which was negative discharged home but he continued to have numbness weakness in the leg. He has a history of cardiomyopathy, CHF he has an implantable defibrillator Onset (ago): week(s) (2) Location: other (left leg) Severity: moderate Quality: weak and numb Relieving factors: none Exacerbating factors: none Context: gradual onset On Anticoagulants: No Associated symptoms: denies other symptoms Treatments Prior to Arrival: none Related Data Home Medications ?Medication ?Instructions ?Recorded ?Confirmed spironolactone 25 mg tablet 25 mg PO DAILY 03/26/21 07/07/24 carvedilol 25 mg tablet 50 mg PO BID 07/07/24 07/07/24 rosuvastatin 40 mg tablet 40 mg PO DAILY 07/07/24 07/07/24 Previous Rx's ?Medication ?Instructions ?Recorded amlodipine 5 mg tablet 5 mg PO DAILY 90 days #90 tabs 03/18/24 dapagliflozin propanediol 10 mg 10 mg PO DAILY 90 days #90 tabs 03/18/24 tablet (Farxiga) sacubitril 97 mg-valsartan 103 mg 1 tab PO BID 90 days #180 tabs 03/18/24 tablet (Entresto) nicotine 21 mg/24 hr daily 1 patch transdermal DAILY 28 days 06/11/24 transdermal patch #28 ea Allergies Allergy/AdvReac Type Severity Reaction Status Date / Time No Known Allergies Allergy Verified 07/07/24 09:19 [No Known Allergies*] Review of Systems Constitutional: Constitutional: Reports no additional constitutional complaints Cardiovascular: Cardiovascular: Reports no additional cardiovascular complaints Neurologic: Reports system reviewed and no additional complaints, except as documented and Reports as per HPI [facility] Past Medical History Attestation statement: The following information was validated with the patient. 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 Father No problems noted. Social History Social History Household Members: Family Housing: House Do you presently have visiting nurse or other home services: No Alcohol intake: current Alcohol intake frequency: a few times a month Alcohol type: hard liquor Patient Tobacco Use Status: Current everyday Tobacco user Tobacco use type: Cigarette Cigarettes Per Day: 8 Years Smoked: 20 e-Cigarette/Vaping Use: Never Used Second Hand Smoke Exposure: No Substance Use Type: Marijuana service: No Current occupational status: unemployed Cognitive needs: No Hearing needs: No Vision needs: No Physical Exam Vital Signs: Vital Signs: Last Vital Signs Temp 98 F 07/07/24 14:21 Pulse 67 07/07/24 14:21 Resp 20 07/07/24 14:21 BP 144/82 H 07/07/24 14:21 Pulse Ox 95 07/07/24 14:21 O2 Del Method Room Air 07/07/24 14:21 BMI result Body Mass Index 35.6 Not acute distress comfortable in the stretcher Const: General: cooperative Nutritional Appearance: well nourished Orientation/consciousness: patient oriented x3 Limitations: no limitations HEENT: Head: Yes normal to inspection Face and sinus: Yes normal facial exam Mouth: Normal oral and palatal mucosa present Throat: Yes posterior oropharynx normal Neck: Neck: Yes normal visual inspection and Yes full ROM Chest: Chest palpation & inspection: normal inspection of the chest Resp: Effort & Inspection: normal respiratory effort Cardio: Jugular venous distension: no JVD Rate: regular rate Rhythm: regular rhythm GI: Inspection: Yes normal to inspection Palpation (GI): Soft to palpation and not firm Skin: General skin exam: no rashes or lesions noted and elasticity normal Lesions: no lesions Rashes: no rashes Neuro: Other: He is awake alert oriented x3, he has weakness for 4/ 5 of the left lower extremity, reflexes are present Babinski is negative. He has good perfusion in the left lower extremity palpable pulses in the feet,stroke scale 2 General: patient oriented x3 Cranial nerves: Yes CN's II-XII intact bilaterally Course Reevaluation(s) Reevaluation #1: I reviewed the MRI Lumbar Spine done on 07/04/[address] [facility] basically was normal MRI Time: 10:56 Reevaluation #2: CT scan of the head reviewed case was discussed with a neurologist I book the patient for admission I spoke with the hospitalist. Patient refuse admission signed against medical advice he understands the risk. He has decision making capacity. Time: 13:57 Medications Administered Discontinued Medications Generic Name Dose Route Start Last Admin Trade Name Freq PRN Reason Stop Dose Admin Aspirin 324 mg 07/07/24 13:12 07/07/24 13:46 Aspirin 81 Mg Tab.Chew PO 07/07/24 13:13 324 mg ONCE ONE Administration Iohexol 100 ml 07/07/24 10:57 07/07/24 10:58 Iohexol 350 Mg/Ml 100 Ml Infus..Btl IV 07/07/24 10:58 70 ml ONCE ONE Administration Medical Decision Making Medical Decision Making [facility] Narrative: Patient presented to the ED with a left leg numbness he has present pulses this is unlikely vascular problem, it could be a peripheral neuropathy but he had a normal LS spine MRI at [facility] (we will get record the) he could have right hemispheric CVA, we will start with a CTA head and neck Differential Diagnosis Differential Diagnoses: The differential diagnosis associated with the presentation includes Peripheral neuropathy/CVA Admission/Observation Consideration of admission/observation: Escalation of care including admission/observation considered Lab Data 07/07/24 09:56 07/07/24 10:14 Labs: Lab Results 07/07/24 07/07/24 Range/Units 09:56 10:14 WBC 8.4 (4.8-10.8) X10*3/uL RBC 4.66 (4.60-5.80) X10*6/uL Hgb 14.3 (14.0-18.0) g/dl Hct 42.2 (42.0-52.0) % MCV 90.6 (80.0-98.0) fL MCH 30.7 (27.0-33.0) pg MCHC 33.9 (31.0-36.0) g/dl RDW 13.3 (11.0-16.0) % Plt Count 265 (160-400) X10*3/uL MPV 10.3 (9.4-12.4) fL Immature Gran % (Auto) 0.4 (0.0-0.4) % Neut % (Auto) 66.5 (45-73) % Lymph % (Auto) 19.8 L (20-40) % Starke % (Auto) 7.7 (2-11) % Eos % (Auto) 4.9 H (0-4) % Baso % (Auto) 0.7 (0-2) % Lymph # (Auto) 1.7 (1.2-4.9) X10*3/uL Starke # (Auto) 0.7 (0.1-1.2) X10*3/uL Eos # (Auto) 0.4 (0.0-0.4) X10*3/uL Baso # (Auto) 0.1 (0.0-0.2) X10*3/uL Abs Immat Gran (auto) 0.03 (0.00-0.03) X10*3/uL Absolute Neuts (auto) 5.6 (2.0-8.3) x10*3/uL Absolute Nucleated RBC 0.000 (0.0-0.012) X10*3/uL Nucleated RBC % (auto) 0.0 (0.0-0.2) /100WBC Sodium 140 (135-145) mmol/L Potassium 4.0 (3.3-5.1) mmol/L Chloride 108 (96-108) mmol/L Carbon Dioxide 27 (22-29) mmol/L Anion Gap 9 L (12-20) BUN 15 (9-16) mg/dL Creatinine 1.12 (0.5-1.4) mg/dL Estim Creat Clear Calc 109.8 Estimated GFR > 60 Random Glucose 118 H (60-115) mg/dL Calcium 9.5 D (8.4-10.2) mg/dL Magnesium 2.1 (1.6-2.6) mg/dL Total Bilirubin 0.4 (0.0-1.0) mg/dL AST 31 (5-37) U/L ALT 23 (0-40) U/L Alkaline Phosphatase 108 (39-117) U/L Troponin I High Sens 46.0 H D (<3.5-35.0) ng/L Total Protein 7.2 (6.5-8.0) g/dL Albumin 4.0 (3.5-5.0) g/dL Triglycerides 223 H (<150) mg/dL Cholesterol 206 H (<200) mg/dL LDL Cholesterol, Calc 125 H (<100) mg/dL HDL Cholesterol 37 L (>40) mg/dL Discharge Plan Discharge Clinical Impression: Left leg weakness, Acute CVA (cerebrovascular accident) Patient Disposition: Left Against Medical Advice Additional Instructions: You are refusing admission, we will going to do more tests on you including MRI of the brain cardiac echo. You are welcome to return to the emergency room at any time if you change your mind. Prescriptions: No Action amlodipine 5 mg tablet 5 mg PO DAILY 90 Days Qty: 90 1RF dapagliflozin propanediol [Farxiga] 10 mg tablet 10 mg PO DAILY 90 Days Qty: 90 0RF sacubitril-valsartan [Entresto] 97-103 mg tablet 1 tab PO BID 90 Days Qty: 180 1RF nicotine 21 mg/24 hr patch 24 hour 1 patch transdermal DAILY 28 Days Qty: 28 0RF carvedilol 25 mg tablet 50 mg PO BID rosuvastatin 40 mg tablet 40 mg PO DAILY spironolactone 25 mg tablet 25 mg PO DAILY Interventions: ED Discharge Assessment Last Done: 07/07/24 14:21 Discharge Date/Time: 07/07/24 14:23 Print Language: Kyrgyz
[2024-07-07 10:00] VITALS: PULSE 88
[2024-07-07 10:00] LABS: MANUAL DIFF FLAG NO
[2024-07-07 10:02] LABS: Basophils Absolute Auto 0.1 X10*3/uL (0.0-0.2); Basophils Percent Auto 0.7 % (0-2); Eosinophils Absolute Auto 0.4 X10*3/uL (0.0-0.4); Eosinophils Percent Auto 4.9 % (0-4); Hematocrit 42.2 % (42.0-52.0); Hemoglobin 14.3 g/dl (14.0-18.0); Imm Gran Abs Auto 0.03 X10*3/uL (0.00-0.03); Imm Gran Pct Auto 0.4 % (0.0-0.4); Lymphocytes Absolute Auto 1.7 X10*3/uL (1.2-4.9); Lymphocytes Percent Auto 19.8 % (20-40); Mean Corpuscular HGB Conc 33.9 g/dl (31.0-36.0); Mean Corpuscular Hemoglobin 30.7 pg (27.0-33.0); Mean Corpuscular Volume 90.6 fL (80.0-98.0); Mean Platelet Volume 10.3 fL (9.4-12.4); Monocytes Absolute Auto 0.7 X10*3/uL (0.1-1.2); Monocytes Percent Auto 7.7 % (2-11); Neutrophils Absolute Auto 5.6 x10*3/uL (2.0-8.3); Neutrophils Percent Auto 66.5 % (45-73); Platelet Count 265 X10*3/uL (160-400); Red Blood Count 4.66 X10*6/uL (4.60-5.80); Red Cell Distribution Width 13.3 % (11.0-16.0); White Blood Count 8.4 X10*3/uL (4.8-10.8)
--- NOTE | 2024-07-07 10:05 | PC.NURSE ---
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
[2024-07-07] MEDS: iohexoL 350 MG/ML 100 ML INFUS..BTL IV (10:58)
--- OUTSIDE RECORDS SUMMARY | 2024-07-07 10:58 | XMS_ITS | Continuity of Care Document ---
Author Organization [facility] ter Address [address] [place] [id number]- Care Team Providers Care Early Childhood Education Specialist Name Role Phone Иван Green MD, Siri Primary Care Physician [place] [facility] [place]): [place]04[place] - 07/04/[address] [address]- Discharge Disposition: A-D/C Home Attending Physician: Kingsley Campo MD Admitting Physician: Kingsley Campo MD Referring Physician: Not on Staff, Referring MD Encounter Type: Disch ES Allergies, Adverse Reactions, Alerts No Known Allergies Immunizations Given and Recorded Vaccine Date Status Refusal Reason influenza virus vaccine, inactivated 03/13/21 Give n SARS-CoV-2 (COVID-19) Ad26 vaccine 10/29/20 Record ed Medications amLODIPine 5 mg oral tablet TAKE 1 TABLET BY MOUTH EVERY DAY Start Date: 05/14/24 Status: Ordered Repeat number: 1 Coreg 25 mg oral tablet 50 mg, 2, tablet, By Mouth, 2 times a day, # 360 tablet, Refills 11, Tot. Refills 11, Maintenance, 05/14/24 9:49:00 AM EST, Route to Pharmacy Electronically, [facility]/pharmacy #[id number], Partial fill upon patient request if the prescription is for a schedule II opioid drug., 183, cm, 05/14/24 9:36:00 EST, Height, 105, kg, 06/13/22 10:17:00 EDT, Dry Weight Start Date: 05/14/24 Status: Ordered Quantity: 360.0 Unit: tablet Repeat number: 12 Entresto 97 mg-103 mg oral tablet 1 tablet, By Mouth, 2 times a day, # 180 tablet, 1 Refills, Maintenance, 01/02/24 1:09:00 PM EDT, Tablet, [facility] #[id number], Partial fill upon patient request if the prescription is for a schedule IIopioid drug., 1 tablet By Mouth 2 times a day,x90 days, 183, cm, 05/29/23 14:17:00 EST, Height, 105, kg, 06/13/22 10:17:00 EDT, Dry Weight Start Date: 01/02/24 Stop Date: 06/30/24 Status: Ordered Quantity: 180.0 Unit: tablet Repeat number: 2 Farxiga 10 mg oral tablet 1 tablet = 10 mg, By Mouth, Daily, # 90 tablet, 11 Refills, Maintenance, 07/17/23 1:04:00 PM EDT, Tablet, [id number], Partial fill upon patient request if the prescription is for a schedule IIopioid drug., 183, cm, 05/29/23 14:17:00 EST, Height, 105, kg, 06/13/22 10:17:00 EDT, Dry Weight Start Date: 07/17/23 Status: Ordered Quantity: 90.0 Unit: tablet Repeat number: 12 nitroglycerin 0.3 mg sublingual tablet 1 tablet = 0.3 mg, Sublingual, Every 5 minutes, PRN as needed for chest pain, not to exceed 3 doses/15 min--if pain persists, seek medical attention, # 100 tablet, 0 Refills, Maintenance, 01/17/22 10:12:00 AM EDT, Tablet, [id number], Partial fill upon patient request if the prescription is for a schedule II opioid drug., 183, cm, 01/17/22 8:28:00 EDT, Height, 105, kg, 01/16/22 13:35:00 EDT, Dry Weight Start Date: 01/17/22 Status: Ordered Quantity: 100.0 Unit: tablet Repeat number: 1 rosuvastatin 40 mg oral tablet 1 tablet = 40 mg, By Mouth, Daily, # 90 tablet, 11 Refills, Maintenance, 05/14/24 9:52:00 AM EST, Tablet, [id number], Partial fill upon patient request if the prescription is for a schedule IIopioid drug., 183, cm, 05/14/24 9:36:00 EST, Height, 105, kg, 06/13/22 10:17:00 EDT, Dry Weight Start Date: 05/14/24 Status: Ordered Quantity: 90.0 Unit: tablet Repeat number: 12 spironolactone 25 mg oral tablet 25 mg, 1, tablet, By Mouth, Daily, # 30 tablet, Refills 11, Tot. Refills 11, Maintenance, 01/02/24 1:09:00 PM EDT, Route to Pharmacy Electronically, [facility]/pharmacy #[id number], 183, cm, 05/29/23 14:17:00 EST,Height, 105, kg, 06/13/22 10:17:00 EDT, Dry Weight Start Date: 01/02/24 Status: Ordered Quantity: 30.0 Unit: tablet Repeat number: 12 Problem List Condition Confirmation Course Effective Dates Status H ealth Status Informant Heart failure with reduced ejection fraction Confirmed Active Hypokalemia Confirmed Active Nonischemic dilated cardiomyopathy Confirmed Active Obese class I Confirmed Active Polysubstance abuse Confirmed Active Vital Signs Most recent to oldest [Reference Range]: 1 2 3 Height 183 cm (07/04/24 2:11 AM) Weight 113.7 kg (07/04/24 2:11 AM) Oxygen Saturation [94-100 %] 99 % (07/04/24 4:48 PM) 98 % (07/04/24 3:26 PM) 98 % (07/04/24 2:57 PM) Pulse Rate [55-90 bpm] 78 bpm (07/04/24 4:48 PM) 82 bpm (07/04/24 3:26 PM) 85 bpm (07/04/24 2:57 PM) Body Mass Index [18.5-24.99 kg/m2] 33.95 kg/m2 *>HHI* (07/04/24 2:11 AM) Blood Pressure [90-138/55-84 mm Hg] 162/78mm Hg *H* (07/04/24 4:48 PM) 165/123mm Hg *H* (07/04/24 3:26 PM) 156/97mm Hg *H* (07/04/24 1:24 PM) Respiratory Rate [16-30 br/min] 17 br/min (07/04/24 4:48 PM) 17 br/min (07/04/24 3:26 PM) 16 br/min (07/04/24 2:57 PM) Temperature [96.8-100.4 DegF] 98.3 DegF (07/04/24 4:48 PM) 98.2 DegF (07/04/24 3:26 PM) 98.7 DegF (07/04/24 2:11 AM) Mode of Delivery (Oxygen) Room air (07/04/24 4:48 PM) Room air (07/04/24 3:26 PM) Room air (07/04/24 2:57 PM) Blood pressure sites Arm, left (07/04/24 4:48 PM) Arm, left (07/04/24 3:26 PM) Arm, left (07/04/24 2:57 PM) Temperature Route Oral (07/04/24 4:48 PM) Oral (07/04/24 3:26 PM) Oral (07/04/24 2:11 AM) Dry Weight 113.7 kg (07/04/24 2:11 AM) Weight Obtained Via Patient/family state d (07/04/24 2:11 AM) Dry Weight Obtained Via Patient/family s tated (07/04/24 2:11 AM) Social History Social History Type Response Tobacco Other: Current smoke r, 5-8 cigs/day. Sex Sex Representation Male (finding) Patient Care team information Care Team Personnel Name: Libra Castro RN Position: [facility] AMB Nurse Member Role: Primary Care Nurse Name: Lazara Cohn MD Position: Reference Physician Member Role: PCP Address: [address] [place] [address] [address] [place] [address] Telecom: Name: Debby Rivas RN Position: [facility] RN Member Role: Primary Care Nurse Care Team Related Persons Name: TUNDE APONTE Insurance Providers Guarantor name: DANAY Health Plan Information #: 1 Payer: [employer] Member Number: [id number] Policy Number: NA Group Number: NA Health Plan Information #: 2 Payer: [employer] Member Number: [id number] Policy Number: NA Group Number: NA
[2024-07-07 11:01] LABS: Alanine Aminotransferase 23 U/L (0-40); Alkaline Phosphatase 108 U/L (39-117); Anion Gap 9 (12-20); Aspartate Amino Transferase 31 U/L (5-37); Bilirubin Total 0.4 mg/dL (0.0-1.0); Blood Urea Nitrogen 15 mg/dL (9-16); Calcium 9.5 mg/dL (8.4-10.2); Carbon Dioxide 27 mmol/L (22-29); Chloride 108 mmol/L (96-108); Creatinine Clr Calc Pharmacy 109.8; Estimated Glomerular Filt Rate > 60; Glucose Random 118 mg/dL (60-115); Magnesium 2.1 mg/dL (1.6-2.6); Sodium 140 mmol/L (135-145); Total Protein 7.2 g/dL (6.5-8.0)
[2024-07-07 12:21] VITALS: PULSE 60; RESP 20
--- NOTE | 2024-07-07 13:35 | PHA.MEDREC ---
Pharmacy Consult ? Medication Reconciliation Pharmacy has completed the medication reconciliation.
[2024-07-07] MEDS: Aspirin 81 MG TAB.CHEW 324 MG PO (13:46)
--- NOTE | 2024-07-07 13:57 | PM.EVENT ---
Event Note Date of Service: 07/07/24 Event Note: 48-year-old male with history of hypertension, cardiomyopathy/HFrEF, history of alcohol use order, who is a current 1/2 pack per day cigarette smoker presented to the ED earlier today due to left upper and lower extremity weakness and paresthesias which started about 2 weeks ago. He was seen at [facility] with CT imaging performed but no MRI. He states his symptoms have persisted without any acute worsening or new symptoms. He is able to ambulate but has a limp. He reports he came in today due to concerns of ongoing symptoms. He is taking aspirin and statin. He denies any drug use. He was recommended for admission by ED provider and Neurology per ED provider. He reports to me that he does not wish to stay for admission. Denies any confusion, headaches, visual changes, facial droop, slurred speech, right-sided weakness or paresthesias. He has follow up with PCP on 07/19. Recommend outpt follow up as scheduled and strongly advised pt have MRI and echo performed. Discussed with ED provider. Time Spent With Patient Time: Total time managing care of this patient today ____ minutes.
[2024-07-07 14:21] VITALS: BP 144/82; PULSE 67; RESP 20; TEMP 36.6; O2SAT 95
--- NOTE | 2024-07-07 14:23 | PC.NURSE ---
pt signed out ama, I discussed risks and pt is adamant about leaving, plans to f/u with pcp, asked for a cane and script for a cane provided, pt dressed himself and ambulated with a steady gait. l leg mobility is impaired but able to walk steadily, pt is fully alert
--- NOTE | 2024-07-07 14:25 | PC.NURSE ---
pt self removed IV, catheter intact
--- NOTE | 2024-07-07 14:25 | PC.NURSE ---
pt left the department without formal discharge by RN.
[2024-07-07 14:41] LABS: Cholesterol 206 mg/dL (<200); HDL Cholesterol 37 mg/dL (>40); LDL Cholesterol Calculated 125 mg/dL (<100); Triglycerides 223 mg/dL (<150)
[2024-07-08 06:36] LABS: Estimated Average Glucose 103 mg/dL; Hemoglobin A1C 123.9992 umol/L; Hemoglobin A1c % 5.2 % (<6.0); Total Hemoglobin (HGBA1C) 3774.0022 umol/L
== END 2024-07-07 14:23 | disposition left against medical advice (07) ==
PROVIDERS: Physician Assistant; Emergency Provider Emergency Medicine; PCP Internal Medicine
DX: I63.9 Cerebral infarction, unspecified (principal); M62.81 Muscle weakness (generalized); R94.31 Abnormal electrocardiogram [ECG] [EKG]; Z79.899 Other long term (current) drug therapy; Z95.810 Presence of automatic (implantable) cardiac defibrillator; F17.210 Nicotine dependence, cigarettes, uncomplicated
CPT/HCPCS: 36415; 70496; 70498; 80053; 80061; 83036; 83735; 84484; 85025; 93005; 99284; 99285; Q9967

== ENCOUNTER → 2024-07-07 09:19 | Outpatient (BNV) | payer OTHER, SELFPAY | PROVIDERS: Emergency Provider Emergency Medicine; PCP Internal Medicine; Visit Provider Internal Medicine Cardiovascular Disease | DX: R94.31 Abnormal electrocardiogram [ECG] [EKG] (principal); Z13.858 Encounter for screening for other nervous system disorders | CPT/HCPCS: 93010 ==

== ENCOUNTER → 2024-07-07 10:00 | Outpatient (BNV) | payer OTHER, SELFPAY | PROVIDERS: Emergency Provider Emergency Medicine; PCP Internal Medicine; Visit Provider Radiology Diagnostic Radiology | DX: I63.9 Cerebral infarction, unspecified (principal); R90.82 White matter disease, unspecified; R53.1 Weakness | CPT/HCPCS: 70496; 70498 ==

== ENCOUNTER 2024-07-07 15:49 | Inpatient (IN) | payer OTHER, SELFPAY ==
[2024-07-07 16:25] VITALS: BP 105/85; PULSE 51; RESP 18; TEMP 36.6; O2SAT 95; BMI 33.9
[2024-07-07 17:35] VITALS: BP 117/71; PULSE 98; RESP 14; O2SAT 98
--- NOTE | 2024-07-07 17:44 | PC.NURSE ---
Patient presented to this facility earlier with left leg weakness. CTA showed White matter disease with the multifocal old lacunar infarcts related to small vessel occlusive disease. Acute/subacute nonhemorrhagic ischemia involving posterior branches of the right MCA cannot be entirely excluded. Plan for MRI but patient decided to leave AMA and fell in the parking lot while getting into his car. Patient states this started about 2 weeks ago when he was assisting a friend and when he took a break, he stood up and left leg felt numb. Alert and oriented. No droop. Tongue midline. Right side strong with no drift. Appears to have a sl drift to his left extremities. Sensation intact. Lungs clear bilat. Respirations even and non-labored. Abdomen large soft, non-tender with positive bowel sounds. Positive pedal pulses with no edema noted.
[2024-07-07 18:22] VITALS: BP 143/104; PULSE 75; RESP 13; TEMP 36.4; O2SAT 97
--- NOTE | 2024-07-07 18:28 | ED.GENADULT ---
HPI - General Adult General Chief complaint: Fall Stated complaint: Fall, seen earlier Time Seen by Provider: 07/07/24 18:28 History of Present Illness ED Provider: Celina PIPER narrative: The patient is a 48-year-old male with a history of a cardiomyopathy. He has an implanted defibrillator. Apparently for the past 2 weeks he has been having trouble with some weakness in his left leg. Apparently at around the time the symptoms began he went to the [facility] Emergency Department and had an MRI of the lower spine which was negative and he was discharged. He continued to have weakness in the leg and also some numbness. He also feels he has some weakness in the left arm. He came to the emergency room for these symptoms earlier this morning and had a workup that demonstrated a small stroke. He was advised that he had sustained a stroke and the plan was to hospitalize him. He was given aspirin. However the patient decided that he did not wish to be hospitalized and signed out AMA. He was able to make it to his truck but as he was trying to get into his truck he fell down. He did not hurt himself. However after he fell he realized that he had made an unwise decision and returned to the emergency room. He continues to have a mild sense of weakness in the left arm and a more significant sense of weakness in the left leg. He has had no visual problems. No speech problems. No chest pain. No fever, sweats, chills. Related Data Home Medications ?Medication ?Instructions ?Recorded ?Confirmed spironolactone 25 mg tablet 25 mg PO DAILY 03/26/21 07/07/24 carvedilol 25 mg tablet 50 mg PO BID 07/07/24 07/07/24 rosuvastatin 40 mg tablet 40 mg PO DAILY 07/07/24 07/07/24 Previous Rx's ?Medication ?Instructions ?Recorded amlodipine 5 mg tablet 5 mg PO DAILY 90 days #90 tabs 03/18/24 dapagliflozin propanediol 10 mg 10 mg PO DAILY 90 days #90 tabs 03/18/24 tablet (Farxiga) sacubitril 97 mg-valsartan 103 mg 1 tab PO BID 90 days #180 tabs 03/18/24 tablet (Entresto) nicotine 21 mg/24 hr daily 1 patch transdermal DAILY 28 days 03/14/25 transdermal patch #28 ea Allergies Allergy/AdvReac Type Severity Reaction Status Date / Time No Known Allergies Allergy Verified 07/07/24 16:27 [No Known Allergies*] Review of Systems Review of Systems: Yes all other systems are reviewed and are negative [facility] Past Medical History Medical History Alcohol abuse Nicotine dependence with current use 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 Hypertension Cardiomyopathy Surgical History History of cardiac defibrillator placement Family History Family History Mother No problems noted. Father No problems noted. Social History Social History Household Members: Family Housing: House Do you presently have visiting nurse or other home services: No Alcohol intake: current Alcohol intake frequency: a few times a month Alcohol type: hard liquor Patient Tobacco Use Status: Current everyday Tobacco user Tobacco use type: Cigarette Cigarettes Per Day: 8 Years Smoked: 20 e-Cigarette/Vaping Use: Never Used Second Hand Smoke Exposure: No Substance Use Type: Marijuana Advance Directives: No Advance Directives Information Provided: No service: No Current occupational status: unemployed Cognitive needs: No Hearing needs: No Vision needs: No Physical Exam ED Vital Signs: Vital Signs - 24 hr 07/07/24 16:25 07/07/24 17:35 07/07/24 18:22 Temperature 97.8 F 97.5 F Pulse Rate 51 98 75 Respiratory Rate 18 14 13 Blood Pressure 105/85 117/71 143/104 H Pulse Oximetry 95 98 97 Oxygen Delivery Method Room Air Room Air Room Air 07/07/24 19:57 07/07/24 21:00 Temperature 98.1 F 98.0 F Pulse Rate 86 94 Respiratory Rate 16 20 Blood Pressure 144/106 H 127/88 Pulse Oximetry 97 97 Oxygen Delivery Method Room Air Room Air BMI result Body Mass Index 33.9 Const Other: The patient is a 48-year-old male who is somewhat unkempt. He is awake and alert. He does not seem in acute distress. He looks somewhat older than his age and looks somewhat chronically ill. HENMT Other: The face is symmetrical. The tongue is midline. Mucous membranes are moist. Eyes Other: Pupils are round, equal, and reactive to light, extraocular movements are intact. Lateral gaze is intact bilaterally. Visual tirado are intact to confrontation. Neck Neck: Yes full ROM, Yes no lymphadenopathy and Yes no JVD Resp Effort & Inspection: normal respiratory effort Auscultation: clear to auscultation bilaterally Cardio Rate: regular rate Rhythm: regular rhythm Heart sounds: S1 normal heart sound present and S2 normal heart sound present GI Other: Abdomen is soft and nontender Skin Other: The skin is dry and unremarkable Neuro Other: The patient is awake and alert with a normal mental status. Orientation is normal. He follows commands appropriately. Eye movements are intact including lateral gaze bilaterally. Visual tirado are intact to confrontation. The face is symmetrical. Speech is clear and appropriate. He has mild pronator drift of the left arm. He has drift of the left leg. Right arm and right leg have normal strength. Sensation is intact throughout. His NIH stroke scale is 2. Extrem Other: No signs of trauma or deformity to the extremities. No peripheral edema. Medications Administered Generic Name Dose Route Start Last Admin Trade Name Freq PRN Reason Stop Dose Admin Enoxaparin Sodium 40 mg 07/07/24 22:00 07/07/24 22:50 Enoxaparin Sodium 40 Mg/0.4 Ml Syringe SUBCUT 40 mg Q24H REANNA Administration Nicotine 14 mg 07/07/24 21:55 07/07/24 22:50 Nicotine 14 Mg Patch.Td24 TRANSDERMA 14 mg DAILY REANNA Administration Medical Decision Making Medical Decision Making [facility] Narrative: The patient is a 48-year-old male who returns to the emergency room after having recently signed out AMA. At his previous ER visit he has been found to have evidence of a small stroke on his CAT scan. He has been given a dose of aspirin. He then signed out AMA. The patient is not a candidate for thrombolytic therapy. The symptoms that he has been having, left leg weakness, and to a lesser extent left arm weakness, has been present for at least several days. He is beyond the window for thrombolytic therapy. He had a CT angiogram of the head and neck just a few hours ago that showed no large vessel occlusion. Since the patient had a complete ER workup just a few hours prior to his read presentation to the emergency room after signing out AMA I did not feel that he required any significant additional workup. The patient is now amenable to being hospitalized. I contacted the hospitalist and he will be admitted. Discharge Plan Discharge Clinical Impression: Stroke Patient Disposition: Admitted As Inpatient
[2024-07-07 19:57] VITALS: BP 144/106; PULSE 86; RESP 16; TEMP 36.7; O2SAT 97
--- NOTE | 2024-07-07 19:57 | PHA.MEDREC ---
Pharmacy Consult ? Medication Reconciliation Pharmacy has completed the medication reconciliation. Patient left AMA this afternoon and morning med rec team confirmed medications with patient this morning. I was able to use paperwork from this morning to confirm med rec.
[2024-07-07 21:00] VITALS: BP 127/88; PULSE 94; RESP 20; TEMP 36.7; O2SAT 97
--- NOTE | 2024-07-07 22:03 | PM.IMHP ---
History of Present Illness Date of Service: 07/07/24 Attending physician on admission: Ash Paulson Chief Complaint: L leg weakness Patient is a 48-year-old male with a past medical history significant for cardiomyopathy s/p AICD, alcohol abuse (in remission), tobacco use, HFrEF (EF 20-25% 03/20), who presented to the ED earlier today due to left-sided weakness for 2 weeks and was diagnosed with a right MCA stroke. The patient was seen at [facility] recently for the same symptoms and had an MRI of the lumbar spine which was negative. He continues to have left upper extremity weakness not as significant as his left lower extremity weakness. Some numbness associated with his weakness as well. He denies any change in vision, dizziness, dysphagia or right-sided weakness. He notes that 2 there were no symptoms about 2 weeks ago leading up to his weakness including headache or a fall. Initially when he was diagnosed with a stroke earlier today he decided to leave AMA but fell in the parking lot and has been. His car, he did not lose consciousness or strike his head. He decided that he will stay in the hospital for further evaluation. Review of Systems Constitutional: Constitutional: Denies body ache(s), Denies chills, Denies fatigue, Denies fever(s) and Denies headache(s) Eyes: Eyes: Denies blurry vision, Denies change in vision and Denies photophobia ENT: Denies headache(s), Denies nasal congestion, Denies nasal discharge and Denies sore throat Cardiovascular: Cardiovascular: Denies chest pain, Denies syncope, Denies rapid heart rate, Denies leg edema, Denies lightheadedness and Denies dyspnea Respiratory: Respiratory: Denies chest congestion, Denies cough, Denies dyspnea and Denies wheezing Gastrointestinal: Gastrointestinal: Denies abdominal pain, Denies diarrhea, Denies nausea and Denies vomiting Genitourinary: Genitourinary: Denies difficulty urinating, Denies dysuria, Denies urinary incontinence and Denies urinary urgency Musculoskeletal: Musculoskeletal: Reports as per HPI Integumentary/Breasts: Skin/Breast: Reports as per HPI Neurologic: Denies confusion, Denies syncope, Denies headache(s) and Denies memory loss Psychiatric: Psychiatric: Denies confusion and Denies memory loss Endocrine: Endocrine: Denies fatigue Hematologic/Lymphatic: Hematologic/Lymphatic: Denies easy bleeding and Denies easy bruising Allergic/Immunologic: Allergic/Immunologic: Denies wheezing [facility] Medical History Alcohol abuse Nicotine dependence with current use 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 Hypertension Cardiomyopathy Functional capacity: independent ambulation Family History Mother No problems noted. Father No problems noted. Surgical History History of cardiac defibrillator placement Social History Household Members: Family Housing: House Do you presently have visiting nurse or other home services: No Alcohol intake: current Alcohol intake frequency: a few times a month Alcohol type: hard liquor Patient Tobacco Use Status: Current everyday Tobacco user Tobacco use type: Cigarette Cigarettes Per Day: 8 Years Smoked: 20 e-Cigarette/Vaping Use: Never Used Second Hand Smoke Exposure: No Substance Use Type: Marijuana Advance Directives: No Advance Directives Information Provided: No service: No Current occupational status: unemployed Cognitive needs: No Hearing needs: No Vision needs: No Narrative: Smokes 1/2 pack per day, no recent alcohol or drug use Meds Allergies Allergy/AdvReac Type Severity Reaction Status Date / Time No Known Allergies Allergy Verified 07/07/24 16:27 [No Known Allergies*] Active Medications: Current Medications Acetaminophen (Acetaminophen 325 Mg Tablet) 975 mg PO Q6H PRN PRN Reason: Pain, Mild 1-3,fever,headache Aspirin (Aspirin Enteric Coated 81 Mg Tablet.Dr) 81 mg PO DAILY REANNA Calcium Carbonate (Calcium Carbonate 750 Mg Tab.Chew) 750 mg PO Q4H PRN PRN Reason: Heartburn Enoxaparin Sodium (Enoxaparin Sodium 40 Mg/0.4 Ml Syringe) 40 mg SUBCUT Q24H REANNA Magnesium Hydroxide (Milk Of Magnesia 30 Ml Oral.Susp) 30 ml PO DAILY PRN PRN Reason: Constipation Melatonin (Melatonin 3 Mg Tablet) 6 mg PO BEDTIME PRN PRN Reason: Insomnia Nicotine (Nicotine 14 Mg Patch.Td24) 14 mg TRANSDERMA DAILY REANNA Ondansetron HCl (Ondansetron Hcl 4 Mg/2 Ml Vial) 4 mg IVPUSH Q8H PRN PRN Reason: Nausea and Vomiting Sodium Chloride (0.9 % Sodium Chloride Flush 3 Ml Syringe) 3 ml IVFLUSH QSHIFT [facility] Home Medications ?Medication ?Instructions ?Recorded ?Confirmed ?Last Taken ?Type spironolactone 25 mg tablet 25 mg PO DAILY 03/26/21 07/07/24 Unknown History carvedilol 25 mg tablet 50 mg PO BID 07/07/24 07/07/24 Unknown History rosuvastatin 40 mg tablet 40 mg PO DAILY 07/07/24 07/07/24 Unknown History Physical Exam Vital Signs and Narrative: Vital Signs: Last Vital Signs Temp 98.0 F 07/07/24 21:00 Pulse 94 07/07/24 21:00 Resp 20 07/07/24 21:00 BP 127/88 07/07/24 21:00 Pulse Ox 97 07/07/24 21:00 O2 Del Method Room Air 07/07/24 21:00 BMI result Body Mass Index 33.9 General: AOx3, no acute distress Resp: CTA bilaterally CVS: S1, S2, RRR GI: +BS, NT, no distention Skin: Warm, dry Neuro: Cranial nerves II-XII grossly intact bilaterally. Motor grossly intact bilaterally. 2/5 LLE strength with hip flexion, 5/5 RLE strength throughout. 3+/5 emery wheel molder strength LUE, 5/5 emery wheel molder strength RUE. unable to dorsiflex or plantar flex LLE. Extremities: No LE edema Psych: Appropriate affect Const: General: No confusion Orientation/consciousness: No confusion Eyes: Direct Ophthalmoscopy: No photophobia Neuro: General: No confusion Assessment and Plan (1) Stroke: Status: Acute (2) Left-sided weakness: Status: Acute (3) Elevated troponin: Status: Acute (4) Nicotine dependence with current use: Status: Acute (5) Obesity (BMI 30-39.9): Status: Acute Plan Patient is a 48-year-old male with a past medical history significant for cardiomyopathy s/p AICD, alcohol abuse (in remission), tobacco use, HFrEF (EF 20-25% 03/20), who presented to the ED earlier today due to left-sided weakness for 2 weeks and was diagnosed with a right MCA stroke earlier today. Initially when he was diagnosed with a stroke earlier today he decided to leave AMA but fell in the parking lot on the way to his car. he did not lose consciousness or strike his head. He decided that he will stay in the hospital for further evaluation. R MCA CVA, L-sided weakness - CTA with - EKG with NSR - lipid panel elevated throughout - pt is already on statin, appreciate neurology advice on increased dose - ASA 81mg QD - MRI brain - echo with bubble study - monitor on tele - neurochecks Q4H given onset was 2 weeks ago - bedside swallow not needed, pt has been eating and drinking without difficulty x2 weeks - PT/OT eval - neurology consult elevated troponin - trop elevated during ED visit earlier today - EKG with NSR - no recent chest pain - repeat trop now - on tele monitor chronic HFrEF, no acute exacerbation - continue home meds - echo as above tobacco use - smoking cessation discussed and encouraged - nicotine patch class 1 obesity - BMI 33.9 - weight loss encouraged hx etoh abuse - pt denies any recent etoh full code VTE prophy: lovenox Patient with recent right MCA CVA with residual left-sided weakness, requiring admission for at least 2 midnights stay for further evaluation and monitoring. Quality Stroke Does the patient have a stroke diagnosis?: Yes Reason for No Anti-thrombotic by Day Two: Contraindicated VTE Prior VTE?: No VTE Risk Level:: Medical - moderate - high VTE Device Contraindication: Treatment Not Indicated VTE Drug Contraindication: N/A - Med Ordered
[2024-07-07] MEDS: Enoxaparin Sodium 40 MG/0.4 ML SYRINGE SUBCUT (22:50)
[2024-07-07] MEDS: Nicotine 14 MG PATCH.TD24 TRANSDERMA (22:50)
[2024-07-07 22:57] LABS: Troponin-I High Sensitivity 37.6 ng/L (<3.5-35.0)
--- NOTE | 2024-07-07 23:12 | MHC.EDTECH ---
assumed care of pt @[id number]
--- NOTE | 2024-07-07 23:38 | PC.NURSE ---
This video game script writer assumed care of this Pt at 2300. Pt A&Ox3, denies any pain.
[2024-07-08] VITALS (11 sets, daily range): BP systolic 125–174; BP diastolic 65–124; PULSE 61–101; RESP 14–20; TEMP 36.3–36.7; O2SAT 94–98
[2024-07-08 05:52] LABS: Hematocrit 39.1 % (42.0-52.0); Hemoglobin 13.3 g/dl (14.0-18.0); Mean Corpuscular Hemoglobin 30.9 pg (27.0-33.0); Mean Corpuscular Volume 90.9 fL (80.0-98.0); Platelet Count 245 X10*3/uL (160-400); Red Cell Distribution Width 13.4 % (11.0-16.0); White Blood Count 7.4 X10*3/uL (4.8-10.8)
[2024-07-08 06:06] LABS: Anion Gap 12 (12-20); Blood Urea Nitrogen 17 mg/dL (9-16); Calcium 9.2 mg/dL (8.4-10.2); Carbon Dioxide 26 mmol/L (22-29); Chloride 107 mmol/L (96-108); Creatinine Clr Calc Pharmacy 99.1; Estimated Glomerular Filt Rate > 60; Glucose Random 114 mg/dL (60-115); Potassium 3.6 mmol/L (3.3-5.1); Sodium 141 mmol/L (135-145)
[2024-07-08] MEDS: 0.9 % Sodium Chloride Flush 3 ML SYRINGE IVFLUSH ×2 (06:08→17:37)
--- NOTE | 2024-07-08 06:14 | PC.NURSE ---
BP noted to be high, provider Vasiliy made aware.
--- NOTE | 2024-07-08 07:00 | CA_ITS ---
Transthoracic Echocardiogram Patient (Last, First, Middle): Kun Ferrara G Gender: Male Date of : 1975 Age: 48 Procedure Date: 07/08/2024 Procedure Type: Transthoracic Echocardiogram Location[place] [facility] [place] Height: 182.88 cm Weight: 113.4 kg BSA: 2.34 m2 Heart Rate: bpm BP: 174 / 124 mmHg Commercial Maintenance Technician: TO Referring MD: Zehra Montana PA-C Symptoms: CVA Study Quality: Adequate w contrast Conclusions: - Moderately increased left ventricular cavity size. There is normal left ventricular wall thickness. The left ventricular systolic function is moderate to severely decreased. The visually estimated ejection fraction is between 25-30%. - Normal right ventricular cavity size and systolic function. Findings Procedure Information Contrast agent, definity, is being given per protocol without apparent complications. Left Ventricle Moderately increased left ventricular cavity size. There is normal left ventricular wall thickness. The left ventricular systolic function is moderate to severely decreased. The visually estimated ejection fraction is between 25-30%. There is moderate global hypokinesis. Abnormal diastolic function is noted. Spectral Doppler is indicative of a pseudonormal filling pattern. E/E prime ratio is between 8 and 15 consistent with indeterminate filling pressures. Right Ventricle Normal right ventricular cavity size and systolic function. Atria The left atrium is mildly dilated. There is no evidence of interatrial shunt by agitated saline. The right atrium is normal in size. Aortic Valve Normal aortic valve structure and function. There is no aortic valve stenosis. There is no aortic valve regurgitation. Mitral Valve The mitral valve appears normal. There is no mitral valve regurgitation. There is no mitral valve stenosis. Pulmonic Valve The pulmonic valve is likely normal. Tricuspid Valve Normal tricuspid valve structure. There is trace tricuspid valve regurgitation. Tricuspid regurgitation envelope is inadequate for calculation of right ventricular systolic pressure. Normal right atrial pressure. Great Vessels There is mild dilatation of the sinuses of Valsalva measuring 3.91 cm and mild dilatation of the ascending aorta measuring 3.80 cm. Venous The inferior vena cava is normal in size and collapses greater than 50% with inspiration. Pericardium/Pleural There is no evidence of pericardial effusion. Prior Study Comparison No significant change compared to prior study dated: 03/12/2021. Measurements 2D Linear Measurements IVSd: 1.08 0.6-0.9/0.6-1.0 cm LVIDd: 6.63 3.9-5.3/4.2-5.9 cm LVIDd Index: 2.83 2.4-3.2/2.2-3.1 cm/m2 LVIDs: 6.01 2.0-3.6 cm LVPWd: 1.00 0.7-1.1 cm LA Diam: 3.70 2.7-3.8/3.0-4.0 cm LAIDs Index: 1.58 1.5-2.3 cm/m2 LV Mass: 384.12 67-162/88-224 g LV Mass Index: 164.15 43-95/49-115 g/m2 LVOT Diam: 2.40 3.0+(-)1.3 cm 2D Systolic Function EF 4C: 29.00 >55% EF 2C: 31.00 >55% EF BiP: 28.60 >55% Mitral Valve MV Pk E: 0.59 MV PK A: 0.39 MV Decel Time: 149.00 E/A: 1.50 E'Lateral: 6.53 E'Medial: 4.24 E/E' Med: 13.80 E/E' Lat: 9.00 PHT: 44.00 MVA PHT: 5.00 Decel [place]: 3.93 Aortic Valve AoV Pk Shaw: 1.03 AoV Mn Shaw: 0.66 AoV VTI: 0.17 AoV Pk Grad: 4.00 Aov Mn Grad: 2.00 RIZWAN Cont.VTI: 2.99 LVOT LVOT Pk Shaw: 0.73 LVOT Mn Shaw: 0.47 LVOT VTI: 0.11 LVOT Pk Grad: 2.00 LVOT Mn Grad: 1.00 LVOT Diam: 2.40 LVOT Area: 4.52 Diastolic Function MV Pk E: 0.59 MV Pk A: 0.39 E/A: 1.50 E'Medial: 4.24 E/E' Med: 13.80 E' Laterial: 6.53 E/E' Lat: 9.00 Right Ventricle TAPSE (mm): 20.90 TVS' Shaw: 10.80 Tricuspid Valve RA Press: 3.00 Great Vessels Aorta Sinus of Valsalva: 3.91 2.0-3.[address] [place]: 3.19 1.7-3.4 cm Ao Asc: 3.80 2.1-3.4 cm Updated in Other Vendor System with Status of Final Lan Armijo MD electronically signed on 07/08/2024 7:53:49 PM with status of Final
--- NOTE | 2024-07-08 07:18 | HO.PM.IMPN ---
Subjective Subjective Date of Service: 07/08/24 Interval History: Admitted for left-sided weakness Denies worsening left-sided weakness, has persistent left lower extremity weakness and difficulty with ambulation, denies speech impairment, no headache, no dizziness. Tolerating diet, no new neuro deficit. Review of Systems All other system reviewed and are negative Physical Exam Vital Signs: Vital Signs: Last Vital Signs Temp 98.1 F 07/08/24 05:05 Pulse 61 07/08/24 06:14 Resp 20 07/08/24 06:14 BP 174/124 H 07/08/24 06:14 Pulse Ox 98 07/08/24 05:05 O2 Del Method Room Air 07/08/24 05:05 BMI result Body Mass Index 33.9 Const: Other: General resting comfortably in no acute distress. Neck no JVD. CVS regular rate rhythm, Respiratory lungs clear to auscultation, no respiratory distress, no wheeze, no rhonchi. Gastrointestinal abdomen soft, non tender, bowel sounds audible Extremities no edema. Neuro normal speech, face symmetrical, no pronator drift,LLE weakness with extensor plantars Skin no rash Appropriate affect Objective Data Active Medications Acetaminophen (Acetaminophen 325 Mg Tablet) 975 mg PO Q6H PRN PRN Reason: Pain, Mild 1-3,fever,headache Amlodipine Besylate (Amlodipine Besylate 5 Mg Tablet) 5 mg PO DAILY ON LICENSE OF [facility]; Protocol Aspirin (Aspirin Enteric Coated 81 Mg Tablet.) 81 mg PO DAILY ON LICENSE OF [facility] Atorvastatin Calcium (Atorvastatin Calcium 80 Mg Tablet) 80 mg PO DAILY ON LICENSE OF [facility] Calcium Carbonate (Calcium Carbonate 750 Mg Tab.Chew) 750 mg PO Q4H PRN PRN Reason: Heartburn Carvedilol (Carvedilol 25 Mg Tablet) 50 mg PO BID ON LICENSE OF [facility]; Protocol Empagliflozin (Empagliflozin 10 Mg Tablet) 10 mg PO DAILY ON LICENSE OF [facility] Enoxaparin Sodium (Enoxaparin Sodium 40 Mg/0.4 Ml Syringe) 40 mg SUBCUT Q24H ON LICENSE OF [facility] Last Admin: 07/07/24 22:50 Dose: 40 mg Documented By: ALEX Magnesium Hydroxide (Milk Of Magnesia 30 Ml Oral.Susp) 30 ml PO DAILY PRN PRN Reason: Constipation Melatonin (Melatonin 3 Mg Tablet) 6 mg PO BEDTIME PRN PRN Reason: Insomnia Nicotine (Nicotine 14 Mg Patch.Td24) 14 mg TRANSDERMA DAILY ON LICENSE OF [facility] Last Admin: 07/07/24 22:50 Dose: 14 mg Documented By: ALEX Ondansetron HCl (Ondansetron Hcl 4 Mg/2 Ml Vial) 4 mg IVPUSH Q8H PRN PRN Reason: Nausea and Vomiting Sacubitril/Valsartan (Sacubitril/Valsartan 97/103 1 Tab Tablet) 1 tab PO BID [facility]; Protocol Sodium Chloride (0.9 % Sodium Chloride Flush 3 Ml Syringe) 3 ml IVFLUSH QSHIFT [facility] Last Admin: 07/08/24 06:08 Dose: 3 ml Documented By: DEE Spironolactone (Spironolactone 25 Mg Tablet) 25 mg PO DAILY [facility]; Protocol Labs 07/08/24 05:46 07/08/24 05:46 Labs: Laboratory Results - last 24 hr 07/08/24 05:46 MCV 90.9 MCH 30.9 MCHC 34.0 RDW 13.4 Plt Count 245 MPV 10.0 Absolute Nucleated RBC 0.000 Nucleated RBC % (auto) 0.0 Anion Gap 12 Estim Creat Clear Calc 99.1 Estimated GFR > 60 Random Glucose 114 Calcium 9.2 Assessment and Plan (1) Cerebral infarction: Status: Acute (2) Elevated troponin: Status: Acute (3) Left-sided weakness: Status: Acute Plan 48-year-old male with a past medical history significant for cardiomyopathy s/p AICD, alcohol abuse (in remission), tobacco use, HFrEF (EF 20-25% 03/20), who presented to the ED earlier today due to left-sided weakness for 2 weeks and was diagnosed with a right MCA stroke earlier today. Initially when he was diagnosed with a stroke earlier today he decided to leave [place] but fell in the parking lot on the way to his car. he did not lose consciousness or strike his head. He decided that he will stay in the hospital for further evaluation. Subacute CVA, with L-sided weakness - CTA head and neck showed no main cerebral artery occlusion or embolus, no high-grade stenosis or dissection vessels of the neck noted, multifocal old lacunar infarcts, acute/subacute nonhemorrhagic ischemia involving posterior branches of the right MCA cannot be entirely excluded - EKG with NSR - total cholesterol 206, LDL 125, HDL 37 triglyceride 223, stable blood sugar - continue statin, ASA 81mg QD - MRI brain ordered - echo with bubble study report pending - PT recommend acute rehab due to ataxic gait, left strength deficit decreased balance, may benefit from left AFO - seen by Neurology they recommended noncontrast MRI of brain, good blood pressure and cholesterol control. elevated troponin - trop 46 >37.6, EKG with NSR, - no recent chest pain Chronic HFrEF, /cardiomyopathy status post AICD no acute exacerbation - continue Coreg, amlodipine, Jardiance, Aldactone and Entresto - echo as above Hypertension noted to have uncontrolled blood pressure continue all home medication and follow BP tobacco use - smoking cessation discussed and encouraged, continue nicotine patch class 1 obesity - BMI 33.9, weight loss encouraged. hx etoh abuse denies withdrawal symptoms. full code VTE prophy: lovenox Patient with recent right MCA CVA with residual left-sided weakness, requiring admission for further workup , evaluation and safe disposition to acute rehab Quality Stroke Does the patient have a stroke diagnosis?: Yes Reason for No Anti-thrombotic by Day Two: Contraindicated VTE Prior VTE?: No VTE Risk Level:: Medical - moderate - high VTE Device Contraindication: Treatment Not Indicated VTE Drug Contraindication: N/A - Med Ordered
--- NOTE | 2024-07-08 07:55 | PC.NURSE ---
MRI FORM COMPLETED AND FAXED. VSS. A&OX4. AWARE OF PLAN FOR CARE. IN NAD AT THIS TIME. ATE 100% OF BREAKFAST.
--- NOTE | 2024-07-08 10:08 | PM.NEUROCN ---
History of Present Illness Data of Consult Service Date: 07/08/24 Primary Care Provider: Lazara Green MD HPI Reason for consult: Left leg weakness 48 years old man with uncontrolled hypertension came to hospital with few days history of left-sided weakness mostly affecting his leg. He said that his leg was numb and weak. He also stated that he was in [facility] few days ago and had an MRI of brain done and he was told that MRI was okay. With no improvement in his leg strength he came to emergency room. In 1 time, he walked out of emergency room but apparently fell because of his leg weakness and came back. He was complaining of some back pain after that. There was no neck pain. He is not noted much arm or hand weakness or speech or language difficulty. There was no headache. 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 Father No problems noted. Surgical History Surgical History History of cardiac defibrillator placement Social History Social History Household Members: Family Housing: House Do you presently have visiting nurse or other home services: No Alcohol intake: current Alcohol intake frequency: a few times a month Alcohol type: hard liquor Patient Tobacco Use Status: Current everyday Tobacco user Tobacco use type: Cigarette Cigarettes Per Day: 8 Years Smoked: 20 e-Cigarette/Vaping Use: Never Used Second Hand Smoke Exposure: No Substance Use Type: Marijuana Advance Directives: No Advance Directives Information Provided: No Nutrition Risks: No Nutritional Risk service: No Current occupational status: unemployed Cognitive needs: No Hearing needs: No Vision needs: No Meds Allergies Allergy/AdvReac Type Severity Reaction Status Date / Time No Known Allergies Allergy Verified 07/07/24 16:27 [No Known Allergies*] Active Medications: Current Medications Acetaminophen (Acetaminophen 325 Mg Tablet) 975 mg PO Q6H PRN PRN Reason: Pain, Mild 1-3,fever,headache Amlodipine Besylate (Amlodipine Besylate 5 Mg Tablet) 5 mg PO DAILY [facility]; Protocol Aspirin (Aspirin Enteric Coated 81 Mg Tablet.Dr) 81 mg PO DAILY [facility] Atorvastatin Calcium (Atorvastatin Calcium 80 Mg Tablet) 80 mg PO DAILY [facility] Calcium Carbonate (Calcium Carbonate 750 Mg Tab.Chew) 750 mg PO Q4H PRN PRN Reason: Heartburn Carvedilol (Carvedilol 25 Mg Tablet) 50 mg PO BID [facility]; Protocol Empagliflozin (Empagliflozin 10 Mg Tablet) 10 mg PO DAILY [facility] Enoxaparin Sodium (Enoxaparin Sodium 40 Mg/0.4 Ml Syringe) 40 mg SUBCUT Q24H [facility] Last Admin: 07/07/24 22:50 Dose: 40 mg Magnesium Hydroxide (Milk Of Magnesia 30 Ml Oral.Susp) 30 ml PO DAILY PRN PRN Reason: Constipation Melatonin (Melatonin 3 Mg Tablet) 6 mg PO BEDTIME PRN PRN Reason: Insomnia Nicotine (Nicotine 14 Mg Patch.Td24) 14 mg TRANSDERMA DAILY [facility] Last Admin: 07/07/24 22:50 Dose: 14 mg Ondansetron HCl (Ondansetron Hcl 4 Mg/2 Ml Vial) 4 mg IVPUSH Q8H PRN PRN Reason: Nausea and Vomiting Sacubitril/Valsartan (Sacubitril/Valsartan 97/103 1 Tab Tablet) 1 tab PO BID [facility]; Protocol Sodium Chloride (0.9 % Sodium Chloride Flush 3 Ml Syringe) 3 ml IVFLUSH QSHIFT [facility] Last Admin: 07/08/24 09:10 Dose: Not Given Spironolactone (Spironolactone 25 Mg Tablet) 25 mg PO DAILY [facility]; Protocol Home Medications ?Medication ?Instructions ?Recorded ?Confirmed ?Last Taken ?Type spironolactone 25 mg tablet 25 mg PO DAILY 03/26/21 07/07/24 Unknown History carvedilol 25 mg tablet 50 mg PO BID 07/07/24 07/07/24 Unknown History rosuvastatin 40 mg tablet 40 mg PO DAILY 07/07/24 07/07/24 Unknown History Physical Exam Vital Signs: Vital Signs: Last Vital Signs Temp 97.3 F 07/08/24 09:27 Pulse 101 H 04/10/25 09:27 Resp 20 07/08/24 09:27 BP 150/90 H 07/08/24 09:27 Pulse Ox 94 07/08/24 09:27 O2 Del Method Room Air 07/08/24 09:27 BMI result Body Mass Index 33.9 Neuro: Other: Moderately obese man in no acute distress. Attention orientation speech or language are normal. Face is symmetrical. Visual tirado are full. Extraocular muscles were intact. There is no pronator drift. There was no sensory or visual extinction. Left leg is moderately weak and spastic with extensor plantars. Gait is affected by left leg weakness. Results Labs 07/08/24 05:46 07/08/24 05:46 Labs: Short CBC 07/08/24 Range/Units 05:46 WBC 7.4 (4.8-10.8) X10*3/uL Hgb 13.3 L (14.0-18.0) g/dl Hct 39.1 L (42.0-52.0) % Plt Count 245 (160-400) X10*3/uL BMP 07/08/24 05:46 Sodium 141 Potassium 3.6 Chloride 107 Carbon Dioxide 26 BUN 17 H Creatinine 1.21 Calcium 9.2 Head CTA revealed a subacute right anterior cerebral artery ischemic infarct. Assessment and Plan (1) Cerebral infarction: Qualifiers: Cerebral infarction mechanism: thrombosis Precerebral and cerebral artery: anterior cerebral artery Laterality of affected vessel: right Qualified Code(s): I63.321 - 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 Status: Acute 48 years old man with subacute right anterior cerebral artery area infarct presenting with its typical symptoms of leg weakness. His left leg is moderately we can spastic. I recommend noncontrast MRI of brain for better definition. Mainstay of management is blood pressure control, statin, and anti-platelet agent. PT OT consultation is recommended. Procedures Date of Service Date of Service: 07/08/24
[2024-07-08] MEDS: Aspirin Enteric Coated 81 MG TABLET.DR PO (11:03)
[2024-07-08] MEDS: Nicotine 14 MG PATCH.TD24 TRANSDERMA (11:03)
[2024-07-08] MEDS: carvediloL 25 MG TABLET 50 MG PO ×2 (11:03→20:35)
[2024-07-08] MEDS: Spironolactone 25 MG TABLET PO (11:04)
[2024-07-08] MEDS: amLODIPine Besylate 5 MG TABLET PO (11:04)
[2024-07-08] MEDS: Sacubitril/Valsartan 97/103 1 TAB TABLET PO ×2 (11:04→20:35)
[2024-07-08] MEDS: Empagliflozin 10 MG TABLET PO (11:04)
[2024-07-08] MEDS: Atorvastatin Calcium 80 MG TABLET PO (11:04)
--- NOTE | 2024-07-08 11:26 | MHC.CM.PN ---
Pt lives alone, He does not have home health services or use DME. PCP confirmed: Lazara Green, HCP discussed, he declined to complete form. He is functionally independent. He is able to arrange a ride home at [place]. DCP: home, self care. CM to follow for DC needs.
[2024-07-08] MEDS: Enoxaparin Sodium 40 MG/0.4 ML SYRINGE SUBCUT (20:35)
[2024-07-09] VITALS (8 sets, daily range): BP systolic 115–151; BP diastolic 75–90; PULSE 68–87; RESP 16–18; TEMP 36.1–37.1; O2SAT 95–98
[2024-07-09 06:28] LABS: Hematocrit 40.6 % (42.0-52.0); Hemoglobin 13.6 g/dl (14.0-18.0); Mean Corpuscular HGB Conc 33.5 g/dl (31.0-36.0); Mean Corpuscular Hemoglobin 30.6 pg (27.0-33.0); Mean Corpuscular Volume 91.4 fL (80.0-98.0); Mean Platelet Volume 10.8 fL (9.4-12.4); Platelet Count 253 X10*3/uL (160-400); Red Blood Count 4.44 X10*6/uL (4.60-5.80); Red Cell Distribution Width 13.1 % (11.0-16.0); White Blood Count 6.4 X10*3/uL (4.8-10.8)
[2024-07-09 06:38] LABS: Anion Gap 13 (12-20); Blood Urea Nitrogen 15 mg/dL (9-16); Calcium 8.8 mg/dL (8.4-10.2); Carbon Dioxide 23 mmol/L (22-29); Chloride 108 mmol/L (96-108); Creatinine Clr Calc Pharmacy 111.1; Estimated Glomerular Filt Rate > 60; Glucose Random 111 mg/dL (60-115); Potassium 3.6 mmol/L (3.3-5.1); Sodium 140 mmol/L (135-145)
[2024-07-09] MEDS: Sacubitril/Valsartan 97/103 1 TAB TABLET PO ×2 (09:17→19:56)
[2024-07-09] MEDS: Aspirin Enteric Coated 81 MG TABLET.DR PO (09:17)
[2024-07-09] MEDS: amLODIPine Besylate 5 MG TABLET PO (09:17)
[2024-07-09] MEDS: Atorvastatin Calcium 80 MG TABLET PO (09:17)
[2024-07-09] MEDS: Spironolactone 25 MG TABLET PO (09:17)
[2024-07-09] MEDS: Nicotine 14 MG PATCH.TD24 TRANSDERMA (09:18)
[2024-07-09] MEDS: Empagliflozin 10 MG TABLET PO (09:18)
[2024-07-09] MEDS: carvediloL 25 MG TABLET 50 MG PO ×2 (09:19→19:57)
[2024-07-09] MEDS: 0.9 % Sodium Chloride Flush 3 ML SYRINGE IVFLUSH ×3 (09:19→19:58)
--- NOTE | 2024-07-09 11:43 | MHC.CM.PN ---
EMR REVIEWED, PT W/CVA, PT/OT RECOMMENDING ACUTE REHAB, CM MET W/PT TO DISCUSS DISPO, PT REPORTS HE PREFERS [facility] AND 2ND CHOICE IS [facility], REFERRAL PLACED, MRI PENDING, PT WILL LIKELY BE CLEARED AFTER MRI, CM WILL CONT TO FOLLOW DC NEEDS.
[2024-07-09] MEDS: Lidocaine 4 % Patch ADH..PATCH 1 PATCH TRANSDERMA (12:21)
--- NOTE | 2024-07-09 13:46 | MHC.STROKE ---
Met with patient in room 486. Pt awake, alert and oriented x 4. Answering questions appropriately. Repositioning self in bed. Reports left sided weakness. Stroke Education reviewed with patient. Stroke Pamphlet given. Medical hx discussed along with medications, diet, activity, and social history. We also discussed nicotine use. Pt currently using a nicotine patch. All questions answered. Patient was also provided a visual to better help understand where his particular stroke was located. Will continue to assist as needed.
--- NOTE | 2024-07-09 15:51 | P.PNIM_ITS ---
Subjective Subjective Date of Service: 07/09/24 Interval History: Offers no acute complaints resting comfortably Complaining of persistent left lower extremity weakness, denies new neurological deficit. Review of Systems All other system reviewed and are negative Physical Exam 2 Vital Signs: Vital Signs: Last Vital Signs Temp 97.0 F 07/09/24 15:50 Pulse 73 07/09/24 15:50 Resp 18 07/09/24 15:50 BP 127/87 07/09/24 15:50 Pulse Ox 97 07/09/24 15:50 O2 Del Method Room Air 07/09/24 15:50 BMI result Body Mass Index 33.9 Const: Other: General resting comfortably in no acute distress. Neck no JVD. CVS regular rate rhythm, Respiratory lungs clear to auscultation, no respiratory distress, no wheeze, no rhonchi. Gastrointestinal abdomen soft, non tender, bowel sounds audible Extremities no edema. Neuro normal speech, face symmetrical, no pronator drift,LLE weakness with extensor plantars Skin no rash Appropriate affect Objective Data Active Medications Acetaminophen (Acetaminophen 325 Mg Tablet) 975 mg PO Q6H PRN PRN Reason: Pain, Mild 1-3,fever,headache Amlodipine Besylate (Amlodipine Besylate 5 Mg Tablet) 5 mg PO DAILY [facility]; Protocol Last Admin: 07/09/24 09:17 Dose: 5 mg Documented By: BRIDGER Aspirin (Aspirin Enteric Coated 81 Mg Tablet.) 81 mg PO DAILY [facility] Last Admin: 07/09/24 09:17 Dose: 81 mg Documented By: BRIDGER Atorvastatin Calcium (Atorvastatin Calcium 80 Mg Tablet) 80 mg PO DAILY [facility] Last Admin: 07/09/24 09:17 Dose: 80 mg Documented By: BRIDGER Calcium Carbonate (Calcium Carbonate 750 Mg Tab.Chew) 750 mg PO Q4H PRN PRN Reason: Heartburn Carvedilol (Carvedilol 25 Mg Tablet) 50 mg PO BID [facility]; Protocol Last Admin: 07/09/24 09:19 Dose: 50 mg Documented By: BRIDGER Empagliflozin (Empagliflozin 10 Mg Tablet) 10 mg PO DAILY [facility] Last Admin: 07/09/24 09:18 Dose: 10 mg Documented By: BRIDGER Enoxaparin Sodium (Enoxaparin Sodium 40 Mg/0.4 Ml Syringe) 40 mg SUBCUT Q24H [facility] Last Admin: 07/08/24 20:35 Dose: 40 mg Documented By: JUVENTINO Lidocaine (Lidocaine 4 % Patch Adh..Patch) 1 patch TRANSDERMA DAILY [facility]; Protocol Last Admin: 07/09/24 12:21 Dose: 1 patch Documented By: YOLY Magnesium Hydroxide (Milk Of Magnesia 30 Ml Oral.Susp) 30 ml PO DAILY PRN PRN Reason: Constipation Melatonin (Melatonin 3 Mg Tablet) 6 mg PO BEDTIME PRN PRN Reason: Insomnia Nicotine (Nicotine 14 Mg Patch.Td24) 14 mg TRANSDERMA DAILY [facility] Last Admin: 07/09/24 09:18 Dose: 14 mg Documented By: BRIDGER Ondansetron HCl (Ondansetron Hcl 4 Mg/2 Ml Vial) 4 mg IVPUSH Q8H PRN PRN Reason: Nausea and Vomiting Sacubitril/Valsartan (Sacubitril/Valsartan 97/103 1 Tab Tablet) 1 tab PO BID [facility]; Protocol Last Admin: 07/09/24 09:17 Dose: 1 tab Documented By: BRIDGER Sodium Chloride (0.9 % Sodium Chloride Flush 3 Ml Syringe) 3 ml IVFLUSH QSHIFT [facility] Last Admin: 07/09/24 15:41 Dose: 3 ml Documented By: YOLY Spironolactone (Spironolactone 25 Mg Tablet) 25 mg PO DAILY [facility]; Protocol Last Admin: 07/09/24 09:17 Dose: 25 mg Documented By: BRIDGER Labs 07/09/24 05:33 07/09/24 05:33 Labs: Laboratory Results - last 24 hr 07/09/24 05:33 MCV 91.4 MCH 30.6 MCHC 33.5 RDW 13.1 Plt Count 253 MPV 10.8 Absolute Nucleated RBC 0.000 Nucleated RBC % (auto) 0.0 Anion Gap 13 Estim Creat Clear Calc 111.1 Estimated GFR > 60 Random Glucose 111 Calcium 8.8 Assessment and Plan (1) Cerebral infarction: Status: Acute (2) Elevated troponin: Status: Acute (3) Left-sided weakness: Status: Acute Plan 48-year-old male with a past medical history significant for cardiomyopathy s/p AICD, alcohol abuse (in remission), tobacco use, HFrEF (EF 20-25% 03/20), who presented to the ED earlier today due to left-sided weakness for 2 weeks and was diagnosed with a right MCA stroke earlier today. Initially when he was diagnosed with a stroke earlier today he decided to leave AMA but fell in the parking lot on the way to his car. he did not lose consciousness or strike his head. He decided that he will stay in the hospital for further evaluation. Subacute CVA, with L-sided weakness - CTA head and neck showed no main cerebral artery occlusion or embolus, no high-grade stenosis or dissection vessels of the neck noted, multifocal old lacunar infarcts, acute/subacute nonhemorrhagic ischemia involving posterior branches of the right MCA cannot be entirely excluded - EKG with NSR - total cholesterol 206, LDL 125, HDL 37 triglyceride 223, stable blood sugar - continue statin, ASA 81mg QD - MRI brain canceled after discussing with Neurology, since patient already has diagnosis on CTA head and neck and due to defibrillator it was difficult to obtain MRI study. - echo with bubble study showed EF 25-30% , no evidence of intra-atrial shunt by agitated saline noted, left atrium is mildly dilated - PT recommend acute rehab due to ataxic gait, left strength deficit decreased balance, may benefit from left AFO - seen by Neurology they recommended good blood pressure and cholesterol control. elevated troponin - trop 46 >37.6, EKG with NSR, - no recent chest pain Chronic HFrEF, /cardiomyopathy status post AICD no acute exacerbation - continue Coreg, amlodipine, Jardiance, Aldactone and Entresto - echo as above Hypertension noted to have uncontrolled blood pressure on admission likely due to noncompliance follow blood pressure is stable tobacco use - smoking cessation discussed and encouraged, continue nicotine patch class 1 obesity - BMI 33.9, weight loss encouraged. hx etoh abuse denies withdrawal symptoms. full code VTE prophy: lovenox Patient with recent right MCA CVA with residual left-sided weakness, requiring admission for further workup , evaluation and safe disposition to acute rehab Cm arranging for rehab bed. Quality Stroke Does the patient have a stroke diagnosis?: Yes Reason for No Anti-thrombotic by Day Two: Contraindicated VTE Prior VTE?: No VTE Risk Level:: Medical - moderate - high VTE Device Contraindication: Treatment Not Indicated VTE Drug Contraindication: N/A - Med Ordered
[2024-07-09] MEDS: Enoxaparin Sodium 40 MG/0.4 ML SYRINGE SUBCUT (21:43)
[2024-07-10 03:43] VITALS: BP 140/68; PULSE 90; RESP 18; TEMP 37; O2SAT 97
[2024-07-10 06:29] LABS: Hematocrit 39.4 % (42.0-52.0); Hemoglobin 13.2 g/dl (14.0-18.0); Mean Corpuscular HGB Conc 33.5 g/dl (31.0-36.0); Mean Corpuscular Hemoglobin 30.6 pg (27.0-33.0); Mean Corpuscular Volume 91.4 fL (80.0-98.0); Mean Platelet Volume 10.2 fL (9.4-12.4); Platelet Count 243 X10*3/uL (160-400); Red Blood Count 4.31 X10*6/uL (4.60-5.80); Red Cell Distribution Width 13.2 % (11.0-16.0); White Blood Count 6.1 X10*3/uL (4.8-10.8)
[2024-07-10 06:50] LABS: Anion Gap 11 (12-20); Blood Urea Nitrogen 19 mg/dL (9-16); Calcium 8.7 mg/dL (8.4-10.2); Carbon Dioxide 23 mmol/L (22-29); Chloride 109 mmol/L (96-108); Creatinine Clr Calc Pharmacy 102.5; Estimated Glomerular Filt Rate > 60; Glucose Random 111 mg/dL (60-115); Sodium 139 mmol/L (135-145)
[2024-07-10 07:43] VITALS: BP 133/87; PULSE 82; RESP 20; TEMP 36.3; O2SAT 96
[2024-07-10] MEDS: Sacubitril/Valsartan 97/103 1 TAB TABLET PO ×2 (08:50→20:32)
[2024-07-10] MEDS: Atorvastatin Calcium 80 MG TABLET PO (08:50)
[2024-07-10] MEDS: amLODIPine Besylate 5 MG TABLET PO (08:50)
[2024-07-10] MEDS: Aspirin Enteric Coated 81 MG TABLET.DR PO (08:50)
[2024-07-10] MEDS: Spironolactone 25 MG TABLET PO (08:51)
[2024-07-10] MEDS: carvediloL 25 MG TABLET 50 MG PO ×2 (08:51→20:32)
[2024-07-10] MEDS: Lidocaine 4 % Patch ADH..PATCH 1 PATCH TRANSDERMA (08:51)
[2024-07-10] MEDS: Empagliflozin 10 MG TABLET PO (08:51)
[2024-07-10] MEDS: 0.9 % Sodium Chloride Flush 3 ML SYRINGE IVFLUSH ×3 (08:51→20:35)
[2024-07-10] MEDS: Nicotine 14 MG PATCH.TD24 TRANSDERMA (08:51)
[2024-07-10 09:18] VITALS: PULSE 80; O2SAT 97
[2024-07-10 12:00] VITALS: BP 107/67; PULSE 78; RESP 20; TEMP 36.5; O2SAT 91
[2024-07-10] MEDS: ondansetron HCL 4 MG/2 ML VIAL IVPUSH (12:19)
--- NOTE | 2024-07-10 14:28 | P.PNIM_ITS ---
Subjective Subjective Date of Service: 07/10/24 Interval History: No acute issues overnight. Voices no complaints Review of Systems Denies chest pain Denies shortness of breath Denies nausea vomiting diarrhea Denies fever chills Physical Exam 2 Vital Signs: Vital Signs: Last Vital Signs Temp 97.7 F 07/10/24 12:00 Pulse 78 07/10/24 12:00 Resp 20 07/10/24 12:00 BP 107/67 07/10/24 12:00 Pulse Ox 91 L 07/10/24 12:00 O2 Del Method Room Air 07/10/24 12:00 BMI result Body Mass Index 33.9 Const: Other: Awake alert no acute distress Resp: Other: Clear to auscultation bilaterally no rales rhonchi or wheezes Cardio: Other: No S4; positive S1-S2; no S3 murmurs rubs or gallops GI: Other: Soft nontender nondistended normoactive bowel sounds Neuro: Other: Cranial nerves 2-12 grossly intact as tested. Motor is 5/5 all extremities save left which is 3/5 sensation is intact cognition appropriate Extrem: Other: No edema bilaterally Objective Data Active Medications Acetaminophen (Acetaminophen 325 Mg Tablet) 975 mg PO Q6H PRN PRN Reason: Pain, Mild 1-3,fever,headache Amlodipine Besylate (Amlodipine Besylate 5 Mg Tablet) 5 mg PO DAILY [facility]; Protocol Last Admin: 07/10/24 08:50 Dose: 5 mg Documented By: SANTOSH Aspirin (Aspirin Enteric Coated 81 Mg Tablet.) 81 mg PO DAILY [facility] Last Admin: 07/10/24 08:50 Dose: 81 mg Documented By: SANTOSH Atorvastatin Calcium (Atorvastatin Calcium 80 Mg Tablet) 80 mg PO DAILY [facility] Last Admin: 07/10/24 08:50 Dose: 80 mg Documented By: SANTOSH Calcium Carbonate (Calcium Carbonate 750 Mg Tab.Chew) 750 mg PO Q4H PRN PRN Reason: Heartburn Carvedilol (Carvedilol 25 Mg Tablet) 50 mg PO BID [facility]; Protocol Last Admin: 07/10/24 08:51 Dose: 50 mg Documented By: SANTOSH Empagliflozin (Empagliflozin 10 Mg Tablet) 10 mg PO DAILY [facility] Last Admin: 07/10/24 08:51 Dose: 10 mg Documented By: SANTOSH Enoxaparin Sodium (Enoxaparin Sodium 40 Mg/0.4 Ml Syringe) 40 mg SUBCUT Q24H [facility] Last Admin: 07/09/24 21:43 Dose: 40 mg Documented By: GRISELDA Lidocaine (Lidocaine 4 % Patch Adh..Patch) 1 patch TRANSDERMA DAILY [facility]; Protocol Last Admin: 07/10/24 08:51 Dose: 1 patch Documented By: SANTOSH Magnesium Hydroxide (Milk Of Magnesia 30 Ml Oral.Susp) 30 ml PO DAILY PRN PRN Reason: Constipation Melatonin (Melatonin 3 Mg Tablet) 6 mg PO BEDTIME PRN PRN Reason: Insomnia Nicotine (Nicotine 14 Mg Patch.Td24) 14 mg TRANSDERMA DAILY [facility] Last Admin: 07/10/24 08:51 Dose: 14 mg Documented By: SANTOSH Ondansetron HCl (Ondansetron Hcl 4 Mg/2 Ml Vial) 4 mg IVPUSH Q8H PRN PRN Reason: Nausea and Vomiting Last Admin: 07/10/24 12:19 Dose: 4 mg Documented By: SANTOSH Sacubitril/Valsartan (Sacubitril/Valsartan 97/103 1 Tab Tablet) 1 tab PO BID [facility]; Protocol Last Admin: 07/10/24 08:50 Dose: 1 tab Documented By: SANTOSH Sodium Chloride (0.9 % Sodium Chloride Flush 3 Ml Syringe) 3 ml IVFLUSH QSHIFT [facility] Last Admin: 07/10/24 12:19 Dose: 3 ml Documented By: SANTOSH Spironolactone (Spironolactone 25 Mg Tablet) 25 mg PO DAILY [facility]; Protocol Last Admin: 07/10/24 08:51 Dose: 25 mg Documented By: SANTOSH Labs 07/10/24 05:51 07/10/24 05:51 Labs: Laboratory Results - last 24 hr 07/10/24 05:51 MCV 91.4 MCH 30.6 MCHC 33.5 RDW 13.2 Plt Count 243 MPV 10.2 Absolute Nucleated RBC 0.000 Nucleated RBC % (auto) 0.0 Anion Gap 11 L Estim Creat Clear Calc 102.5 Estimated GFR > 60 Random Glucose 111 Calcium 8.7 Assessment and Plan (1) Cerebral infarction: Status: Acute (2) Left-sided weakness: Status: Acute (3) 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 Initially when he was diagnosed with a stroke earlier today he decided to leave AMA but fell in the parking lot on the way to his car. he did not lose consciousness or strike his head. He decided that he will stay in the hospital for further evaluation. 1.Subacute CVA, with L-sided weakness -CTA head and neck showed no main cerebral artery occlusion or embolus, no high- grade stenosis or dissection vessels of the neck noted, multifocal old lacunar infarcts, acute/subacute nonhemorrhagic ischemia -MRI brain canceled after discussing with Neurology, since patient already has diagnosis on CTA head and neck and due to defibrillator it was difficult to obtain MRI study. -await acute rehab 2.Chronic HFrEF, /cardiomyopathy status post AICD -stable and well compensated -continue current therapies 3.Hypertension -acceptable control on current therapy -adjust as indicated Full code lovenox Patient with recent right MCA CVA with residual left-sided weakness, requiring admission for further workup , evaluation and safe disposition to acute rehab Cm arranging for rehab bed. Quality Stroke Does the patient have a stroke diagnosis?: Yes Reason for No Anti-thrombotic by Day Two: Contraindicated VTE Prior VTE?: No VTE Risk Level:: Medical - moderate - high VTE Device Contraindication: Treatment Not Indicated VTE Drug Contraindication: N/A - Med Ordered
[2024-07-10 16:00] VITALS: BP 121/73; PULSE 72; RESP 18; TEMP 36.6; O2SAT 94
[2024-07-10 19:35] VITALS: BP 96/66; PULSE 70; RESP 20; TEMP 36.4; O2SAT 97
[2024-07-10] MEDS: Acetaminophen 325 MG TABLET 975 MG PO (20:34)
[2024-07-10] MEDS: Enoxaparin Sodium 40 MG/0.4 ML SYRINGE SUBCUT (22:10)
[2024-07-11] VITALS (12 sets, daily range): BP systolic 68–136; BP diastolic 43–83; PULSE 61–86; RESP 14–20; TEMP 36.2–36.9; O2SAT 92–97
--- NOTE | 2024-07-11 | ECG_ITS ---
Test Reason : seun Blood Pressure : */* mmHG Vent. Rate : 65 BPM Atrial Rate : 65 BPM P-R Int : 216 ms QRS Dur : 98 ms QT Int : 424 ms P-R-T Axes : 51 14 209 degrees QTcB Int : 440 ms Sinus rhythm with sinus arrhythmia with 1st degree A-V block Possible Left atrial enlargement ST & T wave abnormality, consider inferior ischemia ST & T wave abnormality, consider anterolateral ischemia Abnormal ECG When compared with ECG of 07-Jul-2024 09:26, CA interval has increased Referred By: Juan F Loomis Electronically Signed By: MOY SALDAÑA MD
[2024-07-11] MEDS: Melatonin 3 MG TABLET 6 MG PO (01:02)
[2024-07-11] MEDS: 0.9 % Sodium Chloride Flush 3 ML SYRINGE IVFLUSH ×3 (10:02→21:27)
[2024-07-11] MEDS: Naloxone HCl 0.4 MG/ML VIAL IVPUSH (10:23)
[2024-07-11] MEDS: 0.9 % Sodium Chloride 1,000 ML 999 ML IV (10:29)
--- NOTE | 2024-07-11 10:38 | PC.NURSE ---
Approx at 10am, nursing went into room to administer AM meds, patient very sleepy and not really arousal, would drop back off to sleep within seconds of being woken up. This was a change from the last 3 hours. Vitals were found to be low, see vital documentation. Dr Shea and charge at bedside, Narcan given IVP with no effect noted. I liter of NS ordered and is hung with an additional liter to be infused.
[2024-07-11 10:39] LABS: Glucose, Whole Blood 171 mg/dL (60-115)
--- NOTE | 2024-07-11 12:33 | P.PNIM_ITS ---
Subjective Subjective Date of Service: 07/11/24 Interval History: Episode of unresponsiveness and hypotension this a.m.. Given 0.4 Narcan without relief. Given 1 L IV fluid inpatient subsequently resolved without further intervention. When further queried, compliance as an outpatient is going question. Review of Systems Denies chest pain Denies shortness of breath Denies nausea vomiting diarrhea Denies fever chills Physical Exam 2 Vital Signs: Vital Signs: Last Vital Signs Temp 97.1 F 07/11/24 12:00 Pulse 65 07/11/24 12:00 Resp 20 07/11/24 12:00 BP 132/77 07/11/24 12:00 Pulse Ox 96 07/11/24 12:00 O2 Del Method Room Air 07/11/24 12:00 BMI result Body Mass Index 33.9 Const: Other: Awake alert no acute distress Resp: Other: Clear to auscultation bilaterally no rales rhonchi or wheezes Cardio: Other: No S4; positive S1-S2; no S3 murmurs rubs or gallops GI: Other: Soft nontender nondistended normoactive bowel sounds Neuro: Other: Cranial nerves 2-12 grossly intact as tested. Motor is 5/5 all extremities save left which is 3/5 sensation is intact cognition appropriate Extrem: Other: No edema bilaterally Objective Data Active Medications Acetaminophen (Acetaminophen 325 Mg Tablet) 975 mg PO Q6H PRN PRN Reason: Pain, Mild 1-3,fever,headache Last Admin: 07/10/24 20:34 Dose: 975 mg Documented By: GRISELDA Amlodipine Besylate (Amlodipine Besylate 5 Mg Tablet) 5 mg PO DAILY [facility]; Protocol Last Admin: 07/11/24 10:34 Dose: Not Given Documented By: PASHA Non-Admin Reason: Physician Held Med Aspirin (Aspirin Enteric Coated 81 Mg Tablet.) 81 mg PO DAILY [facility] Last Admin: 07/11/24 10:34 Dose: Not Given Documented By: PASHA Non-Admin Reason: Physician Held Med Atorvastatin Calcium (Atorvastatin Calcium 80 Mg Tablet) 80 mg PO DAILY [facility] Last Admin: 07/11/24 10:34 Dose: Not Given Documented By: PASHA Non-Admin Reason: Physician Held Med Calcium Carbonate (Calcium Carbonate 750 Mg Tab.Chew) 750 mg PO Q4H PRN PRN Reason: Heartburn Carvedilol (Carvedilol 25 Mg Tablet) 50 mg PO BID [facility]; Protocol Last Admin: 07/11/24 10:34 Dose: Not Given Documented By: PASHA Non-Admin Reason: Physician Held Med Empagliflozin (Empagliflozin 10 Mg Tablet) 10 mg PO DAILY [facility] Last Admin: 07/11/24 10:35 Dose: Not Given Documented By: PASHA Non-Admin Reason: Physician Held Med Enoxaparin Sodium (Enoxaparin Sodium 40 Mg/0.4 Ml Syringe) 40 mg SUBCUT Q24H [facility] Last Admin: 07/10/24 22:10 Dose: 40 mg Documented By: GRISELDA Lidocaine (Lidocaine 4 % Patch Adh..Patch) 1 patch TRANSDERMA DAILY [facility]; Protocol Last Admin: 07/11/24 10:35 Dose: Not Given Documented By: PASHA Non-Admin Reason: Physician Held Med Magnesium Hydroxide (Milk Of Magnesia 30 Ml Oral.Susp) 30 ml PO DAILY PRN PRN Reason: Constipation Melatonin (Melatonin 3 Mg Tablet) 6 mg PO BEDTIME PRN PRN Reason: Insomnia Last Admin: 07/11/24 01:02 Dose: 6 mg Documented By: GRISELDA Nicotine (Nicotine 14 Mg Patch.Td24) 14 mg TRANSDERMA DAILY [facility] Last Admin: 07/11/24 10:34 Dose: Not Given Documented By: PASHA Non-Admin Reason: Physician Held Med Ondansetron HCl (Ondansetron Hcl 4 Mg/2 Ml Vial) 4 mg IVPUSH Q8H PRN PRN Reason: Nausea and Vomiting Last Admin: 07/10/24 12:19 Dose: 4 mg Documented By: SANTOSH Sacubitril/Valsartan (Sacubitril/Valsartan 97/103 1 Tab Tablet) 1 tab PO BID [facility]; Protocol Last Admin: 07/11/24 10:35 Dose: Not Given Documented By: PASHA Non-Admin Reason: Physician Held Med Sodium Chloride (0.9 % Sodium Chloride Flush 3 Ml Syringe) 3 ml IVFLUSH QSHIFT [facility] Last Admin: 07/11/24 10:02 Dose: 3 ml Documented By: PASHA Spironolactone (Spironolactone 25 Mg Tablet) 25 mg PO DAILY [facility]; Protocol Last Admin: 07/11/24 10:35 Dose: Not Given Documented By: PASHA Non-Admin Reason: Physician Held Med Labs 07/10/24 05:51 07/10/24 05:51 Labs: Laboratory Results - last 24 hr 07/11/24 10:29 POC Glucose 171 H Assessment and Plan (1) Cerebral infarction: Status: Acute (2) Hypertension: Status: Acute Plan 48-year-old male with a past medical history significant for cardiomyopathy s/p AICD, alcohol abuse (in remission), tobacco use, HFrEF (EF 20-25% 03/20), who presented to the ED earlier today due to left-sided weakness for 2 weeks and was diagnosed with a right MCA stroke earlier today. Initially when he was diagnosed with a stroke earlier today he decided to leave AMA but fell in the parking lot on the way to his car. he did not lose consciousness or strike his head. He decided that he will stay in the hospital for further evaluation. 1.Subacute CVA, with L-sided weakness -CTA head and neck showed no main cerebral artery occlusion or embolus, no high- grade stenosis or dissection vessels of the neck noted, multifocal old lacunar infarcts, acute/subacute nonhemorrhagic ischemia -MRI brain canceled after discussing with Neurology, since patient already has diagnosis on CTA head and neck and due to defibrillator it was difficult to obtain MRI study. -await acute rehab 2.Chronic HFrEF, /cardiomyopathy status post AICD -stable and well compensated -continue current therapies 3.Hypertension -episode of hypotension as above. Doubt full compliance with antihypertensive regimen as outpatient; likely given all prescribed meds and had a hypotensive episode -hold meds and follow clinically -add back selectively as appropriate Full code lovenox Patient with recent right MCA CVA with residual left-sided weakness, requiring admission for further workup , evaluation and safe disposition to acute rehab Cm arranging for rehab bed. Quality Stroke Does the patient have a stroke diagnosis?: Yes Reason for No Anti-thrombotic by Day Two: Contraindicated VTE Prior VTE?: No VTE Risk Level:: Medical - moderate - high VTE Device Contraindication: Treatment Not Indicated VTE Drug Contraindication: N/A - Med Ordered
[2024-07-11 13:56] LABS: Amphetamine Screen Urine Not Detected (Not Detect); Barbiturates, Urine Not Detected (Not Detect); Benzodiazepines Screen Urine Not Detected (Not Detect); Buprenorphine Scr Not Detected (Not Detect); Cannabinoid Screen Urine Not Detected (Not Detect); Cocaine Screen Urine Not Detected (Not Detect); Fentanyl, urine Not Detected (Not Detect); Methadone Screen, Urine Not Detected (Not Detect); Opiate Screen Urine Not Detected (Not Detect); Oxycodone Screen Urine Not Detected (Not Detect); Phencyclidine Screen Urine Not Detected (Not Detect)
[2024-07-11] MEDS: Sacubitril/Valsartan 97/103 1 TAB TABLET PO (21:26)
[2024-07-11] MEDS: Enoxaparin Sodium 40 MG/0.4 ML SYRINGE SUBCUT (21:26)
[2024-07-11] MEDS: carvediloL 25 MG TABLET 50 MG PO (21:26)
[2024-07-12] VITALS (7 sets, daily range): BP systolic 121–146; BP diastolic 74–85; PULSE 61–83; RESP 18–20; TEMP 36.1–37; O2SAT 92–99
[2024-07-12 06:10] LABS: MANUAL DIFF FLAG NO
[2024-07-12 06:24] LABS: Basophils Absolute Auto 0.1 X10*3/uL (0.0-0.2); Basophils Percent Auto 0.9 % (0-2); Eosinophils Absolute Auto 0.4 X10*3/uL (0.0-0.4); Eosinophils Percent Auto 7.3 % (0-4); Hematocrit 38.4 % (42.0-52.0); Hemoglobin 12.7 g/dl (14.0-18.0); Imm Gran Abs Auto 0.01 X10*3/uL (0.00-0.03); Imm Gran Pct Auto 0.2 % (0.0-0.4); Lymphocytes Absolute Auto 1.7 X10*3/uL (1.2-4.9); Lymphocytes Percent Auto 29.5 % (20-40); Mean Corpuscular HGB Conc 33.1 g/dl (31.0-36.0); Mean Corpuscular Hemoglobin 31.6 pg (27.0-33.0); Mean Corpuscular Volume 95.5 fL (80.0-98.0); Mean Platelet Volume 10.7 fL (9.4-12.4); Monocytes Absolute Auto 0.5 X10*3/uL (0.1-1.2); Neutrophils Absolute Auto 3.1 x10*3/uL (2.0-8.3); Neutrophils Percent Auto 53.1 % (45-73); Platelet Count 245 X10*3/uL (160-400); Red Blood Count 4.02 X10*6/uL (4.60-5.80); Red Cell Distribution Width 13.2 % (11.0-16.0); White Blood Count 5.8 X10*3/uL (4.8-10.8)
[2024-07-12 06:33] LABS: Alanine Aminotransferase 30 U/L (0-40); Albumin Level 3.6 g/dL (3.5-5.0); Alkaline Phosphatase 90 U/L (39-117); Anion Gap 10 (12-20); Aspartate Amino Transferase 32 U/L (5-37); Bilirubin Total 0.3 mg/dL (0.0-1.0); Blood Urea Nitrogen 15 mg/dL (9-16); Calcium 8.9 mg/dL (8.4-10.2); Carbon Dioxide 23 mmol/L (22-29); Chloride 109 mmol/L (96-108); Creatinine Clr Calc Pharmacy 104.3; Estimated Glomerular Filt Rate > 60; Glucose Fasting 100 mg/dL (60-99); Sodium 138 mmol/L (135-145); Total Protein 6.5 g/dL (6.5-8.0)
[2024-07-12] MEDS: Nicotine 14 MG PATCH.TD24 TRANSDERMA (09:48)
[2024-07-12] MEDS: Atorvastatin Calcium 80 MG TABLET PO (09:48)
[2024-07-12] MEDS: amLODIPine Besylate 5 MG TABLET PO (09:48)
[2024-07-12] MEDS: Aspirin Enteric Coated 81 MG TABLET.DR PO (09:49)
[2024-07-12] MEDS: Lidocaine 4 % Patch ADH..PATCH 1 PATCH TRANSDERMA (09:49)
[2024-07-12] MEDS: carvediloL 25 MG TABLET 50 MG PO ×2 (09:49→21:14)
[2024-07-12] MEDS: Sacubitril/Valsartan 97/103 1 TAB TABLET PO ×2 (09:49→21:14)
[2024-07-12] MEDS: 0.9 % Sodium Chloride Flush 3 ML SYRINGE IVFLUSH ×3 (09:50→21:14)
[2024-07-12] MEDS: Spironolactone 25 MG TABLET PO (09:56)
[2024-07-12] MEDS: Empagliflozin 10 MG TABLET PO (09:58)
--- NOTE | 2024-07-12 10:30 | MHC.CM.PN ---
PER MD ROUNDS, PT EXPECTED TO DC TODAY ACUTE REHAB HAS BEEN RECOMMENDED, [facility] IS THE ONLY FACILITY FOLLOWING THEY WILL REVIEW UPDATES THIS MORNING AND PROVIDE DETERMINATION
--- NOTE | 2024-07-12 12:56 | MHC.CM.PN ---
Addendum entered by Wendy Pitt 07/12/24 14:59: PT HAS ACCEPTED A BED OFFER FROM [facility] THEY ARE SUBMITTING FOR AUTH Original Note: CM MET WITH PT REGARDING DC PLANNING HE IS AWARE THERE WERE NO BED OFFERS FROM THE ACUTE REHAB REFERRALS HE AGREES TO STR REFERRALS AND COMPLETED A HCP NAMING HIS FRIEND, SANDIE HARRIS, HIS AGENT
--- NOTE | 2024-07-12 13:57 | HO.PM.IMPN ---
Subjective Subjective Date of Service: 07/12/24 Interval History: No acute issues overnight. Events of 07/11 likely related to noncompliance with therapies as outpatient Review of Systems Denies chest pain Denies shortness of breath Denies nausea vomiting diarrhea Denies fever chills Physical Exam Vital Signs: Vital Signs: Last Vital Signs Temp 97.6 F 07/12/24 11:22 Pulse 66 07/12/24 11:22 Resp 18 07/12/24 11:22 BP 137/81 07/12/24 11:22 Pulse Ox 97 07/12/24 11:22 O2 Del Method Room Air 07/12/24 11:22 BMI result Body Mass Index 33.9 Const: Other: Awake alert no acute distress Resp: Other: Clear to auscultation bilaterally no rales rhonchi or wheezes Cardio: Other: No S4; positive S1-S2; no S3 murmurs rubs or gallops GI: Other: Soft nontender nondistended normoactive bowel sounds Neuro: Other: Cranial nerves 2-12 grossly intact as tested. Motor is 5/5 all extremities save left which is 3/5 sensation is intact cognition appropriate Extrem: Other: No edema bilaterally Objective Data Active Medications Acetaminophen (Acetaminophen 325 Mg Tablet) 975 mg PO Q6H PRN PRN Reason: Pain, Mild 1-3,fever,headache Last Admin: 07/10/24 20:34 Dose: 975 mg Documented By: GRISELDA Aspirin (Aspirin Enteric Coated 81 Mg Tablet.) 81 mg PO DAILY [facility] Last Admin: 07/12/24 09:49 Dose: 81 mg Documented By: TREVON Atorvastatin Calcium (Atorvastatin Calcium 80 Mg Tablet) 80 mg PO DAILY [facility] Last Admin: 07/12/24 09:48 Dose: 80 mg Documented By: TREVON Calcium Carbonate (Calcium Carbonate 750 Mg Tab.Chew) 750 mg PO Q4H PRN PRN Reason: Heartburn Carvedilol (Carvedilol 25 Mg Tablet) 50 mg PO BID [facility]; Protocol Last Admin: 07/12/24 09:49 Dose: 50 mg Documented By: TREVON Empagliflozin (Empagliflozin 10 Mg Tablet) 10 mg PO DAILY [facility] Last Admin: 07/12/24 09:58 Dose: 10 mg Documented By: TREVON Enoxaparin Sodium (Enoxaparin Sodium 40 Mg/0.4 Ml Syringe) 40 mg SUBCUT Q24H [facility] Last Admin: 07/11/24 21:26 Dose: 40 mg Documented By: RICHARD Lidocaine (Lidocaine 4 % Patch Adh..Patch) 1 patch TRANSDERMA DAILY [facility]; Protocol Last Admin: 07/12/24 09:49 Dose: 1 patch Documented By: TREVON Magnesium Hydroxide (Milk Of Magnesia 30 Ml Oral.Susp) 30 ml PO DAILY PRN PRN Reason: Constipation Melatonin (Melatonin 3 Mg Tablet) 6 mg PO BEDTIME PRN PRN Reason: Insomnia Last Admin: 07/11/24 01:02 Dose: 6 mg Documented By: GRISELDA Nicotine (Nicotine 14 Mg Patch.Td24) 14 mg TRANSDERMA DAILY [facility] Last Admin: 07/12/24 09:48 Dose: 14 mg Documented By: TREVON Ondansetron HCl (Ondansetron Hcl 4 Mg/2 Ml Vial) 4 mg IVPUSH Q8H PRN PRN Reason: Nausea and Vomiting Last Admin: 07/10/24 12:19 Dose: 4 mg Documented By: SANTOSH Sacubitril/Valsartan (Sacubitril/Valsartan 97/103 1 Tab Tablet) 1 tab PO BID [facility]; Protocol Last Admin: 07/12/24 09:49 Dose: 1 tab Documented By: TREVON Sodium Chloride (0.9 % Sodium Chloride Flush 3 Ml Syringe) 3 ml IVFLUSH QSHIFT [facility] Last Admin: 07/12/24 09:50 Dose: 3 ml Documented By: TREVON Spironolactone (Spironolactone 25 Mg Tablet) 25 mg PO DAILY [facility]; Protocol Last Admin: 07/12/24 09:56 Dose: 25 mg Documented By: TREVON Labs 07/12/24 05:47 07/12/24 05:47 Labs: Laboratory Results - last 24 hr 07/11/24 07/12/24 13:34 05:47 MCV 95.5 MCH 31.6 MCHC 33.1 RDW 13.2 Plt Count 245 MPV 10.7 Immature Gran % (Auto) 0.2 Neut % (Auto) 53.1 Lymph % (Auto) 29.5 [place] % (Auto) 9.0 Eos % (Auto) 7.3 H Baso % (Auto) 0.9 Lymph # (Auto) 1.7 [place] # (Auto) 0.5 Eos # (Auto) 0.4 Baso # (Auto) 0.1 Abs Immat Gran (auto) 0.01 Absolute Neuts (auto) 3.1 Absolute Nucleated RBC 0.000 Nucleated RBC % (auto) 0.0 Anion Gap 10 L Estim Creat Clear Calc 104.3 Estimated GFR > 60 Fasting Glucose 100 H Calcium 8.9 Total Bilirubin 0.3 AST 32 ALT 30 Alkaline Phosphatase 90 Total Protein 6.5 Albumin 3.6 Urine Opiates Screen Not Detected Ur Buprenorphine Scrn Not Detected Ur Oxycodone Screen Not Detected Urine Methadone Screen Not Detected Urine Fentanyl Screen Not Detected Ur Barbiturates Screen Not Detected Ur Phencyclidine Scrn Not Detected Ur Amphetamines Screen Not Detected U Benzodiazepines Scrn Not Detected Urine Cocaine Screen Not Detected U Marijuana (THC) Screen Not Detected Assessment and Plan (1) Cerebral infarction: Status: Acute (2) Left-sided weakness: Status: Acute Plan 48-year-old male with a past medical history significant for cardiomyopathy s/p AICD, alcohol abuse (in remission), tobacco use, HFrEF (EF 20-25% 03/20), who presented to the ED earlier today due to left-sided weakness for 2 weeks and was diagnosed with a right MCA stroke earlier today. Initially when he was diagnosed with a stroke earlier today he decided to leave [facility] but fell in the parking lot on the way to his car. he did not lose consciousness or strike his head. He decided that he will stay in the hospital for further evaluation. 1.Subacute CVA, with L-sided weakness -CTA head and neck showed no main cerebral artery occlusion or embolus, no high-grade stenosis or dissection vessels of the neck noted, multifocal old lacunar infarcts, acute/subacute nonhemorrhagic ischemia -MRI brain canceled after discussing with Neurology, since patient already has diagnosis on CTA head and neck and due to defibrillator it was difficult to obtain MRI study. -no acute rehab offers ... Agrees to SNF 2.Chronic HFrEF, /cardiomyopathy status post AICD -stable and well compensated -continue current therapies 3.Hypertension -no further episodes of hypotension. .. Amlodipine DC -acceptable blood pressure control at this time -add back as indicated Full code lovenox Patient with recent right MCA CVA with residual left-sided weakness, requiring admission for further workup , evaluation and safe disposition to acute rehab Cm arranging for rehab bed. Quality Stroke Does the patient have a stroke diagnosis?: Yes Reason for No Anti-thrombotic by Day Two: Contraindicated VTE Prior VTE?: No VTE Risk Level:: Medical - moderate - high VTE Device Contraindication: Treatment Not Indicated VTE Drug Contraindication: N/A - Med Ordered
[2024-07-12] MEDS: Enoxaparin Sodium 40 MG/0.4 ML SYRINGE SUBCUT (21:14)
[2024-07-13 03:46] VITALS: BP 111/66; PULSE 75; RESP 18; TEMP 36.9; O2SAT 95
[2024-07-13 07:56] VITALS: BP 100/56; PULSE 76; RESP 17; TEMP 36.3; O2SAT 96
[2024-07-13] MEDS: Empagliflozin 10 MG TABLET PO (09:26)
[2024-07-13] MEDS: Spironolactone 25 MG TABLET PO (09:26)
[2024-07-13] MEDS: Atorvastatin Calcium 80 MG TABLET PO (09:26)
[2024-07-13] MEDS: Sacubitril/Valsartan 97/103 1 TAB TABLET PO (09:26)
[2024-07-13] MEDS: Aspirin Enteric Coated 81 MG TABLET.DR PO (09:26)
[2024-07-13] MEDS: 0.9 % Sodium Chloride Flush 3 ML SYRINGE IVFLUSH (09:26)
[2024-07-13] MEDS: Nicotine 14 MG PATCH.TD24 TRANSDERMA (09:27)
[2024-07-13] MEDS: Lidocaine 4 % Patch ADH..PATCH 1 PATCH TRANSDERMA (09:27)
--- NOTE | 2024-07-13 10:23 | MHC.CM.PN ---
Pt has been medically cleared to DC, he will go [facility] via [facility] today.
--- NOTE | 2024-07-13 11:04 | P.DS_ITS ---
DS: Providers Provider Date of Service: 07/13/24 Date of admission: 07/07/24 21:47 Date of discharge: 07/13/24 Primary care physician: Lazara Green MD Consults: 07/07/24 21:56 Consult to Neurology Routine Consulting Provider: [facility] Reason for consultation: CVA DS: Diagnosis Discharge Diagnosis (1) Cerebral infarction: Status: Acute (2) Left-sided weakness: Status: Acute DS: Summary Hospital Course Hospital Course: 48-year-old male with a past medical history significant for cardiomyopathy s/p AICD, alcohol abuse (in remission), tobacco use, HFrEF (EF 20-25% 03/20), who presented to the ED earlier today due to left-sided weakness for 2 weeks and was diagnosed with a right MCA stroke. The patient was seen at [facility] recently for the same symptoms and had an MRI of the lumbar spine which was negative. He continues to have left upper extremity weakness not as significant as his left lower extremity weakness. Some numbness associated with his weakness as well. He denies any change in vision, dizziness, dysphagia or right-sided weakness. He notes that 2 there were no symptoms about 2 weeks ago leading up to his weakness including headache or a fall. Initially when he was diagnosed with a stroke earlier today he decided to leave [facility] but fell in the parking lot and has been. His car, he did not lose consciousness or strike his head. He decided that he will stay in the hospital for further evaluation. Hospital Course Patient admitted to telemetry where monitor failed to demonstrate any acute dysrhythmias. Seen by Neurology who recommended stable blood pressure control and PT and OT. Of note patient's home meds were added and on the day that were administered patient became hypotensive requiring fluid. He responded well to volume in his meds were adjusted and ultimately restarted at the end of his hospitalization. When queried he was vague about his compliance at home. At this point in time he is medically acceptable for discharge to rehab Time Attestation Discharge Coordination Time (in mins): 35 Quality: Safe Use of Opioids Does Pt have an Active Cancer Diagnosis on the Problem List?: No Quality: Stroke Does the patient have a stroke diagnosis?: Yes Reason for No Anti-thrombotic at DC: N/A - Med Ordered Reason for No Anticoagulant at DC: Drug treatment not indicated Reason Not Initiating IV-Tpa: Drug treatment not indicated Reason for No Anti-thrombotic by Day Two: Drug treatment not indicated Reason for No Statin at DC: N/A - Med Ordered Physical Exam Vital Signs: Vital Signs: Last Vital Signs Temp 97.3 F 07/13/24 07:56 Pulse 76 07/13/24 07:56 Resp 17 07/13/24 07:56 BP 100/56 L 07/13/24 07:56 Pulse Ox 96 07/13/24 07:56 O2 Del Method Room Air 07/13/24 07:56 BMI result Body Mass Index 33.9 Const: Other: Awake alert no acute distress Resp: Other: Clear to auscultation bilaterally no rales rhonchi or wheezes Cardio: Other: No S4; positive S1-S2; no S3 murmurs rubs or gallops GI: Other: Soft nontender nondistended normoactive bowel sounds Neuro: Other: Cranial nerves 2-12 grossly intact as tested. Motor is 5/5 right; left leg which is 3/5 sensation is intact cognition appropriate Extrem: Other: No edema bilaterally Discharge Plan Discharge Anticipated Discharge Date/Time: 07/13/24 11:00 Patient Disposition: Xfer SNF Discharge Diagnosis: Cerebral infarction Referrals: Lazara Cohn MD [Primary Care Provider] - 1 Week Discharge Medications: New aspirin 81 mg capsule 81 mg PO DAILY Qty: 30 0RF Continued amlodipine 5 mg tablet 5 mg PO DAILY 90 Days Qty: 90 1RF dapagliflozin propanediol [Farxiga] 10 mg tablet 10 mg PO DAILY 90 Days Qty: 90 0RF sacubitril-valsartan [Entresto] 97-103 mg tablet 1 tab PO BID 90 Days Qty: 180 1RF nicotine 21 mg/24 hr patch 24 hour 1 patch transdermal DAILY 28 Days Qty: 28 0RF carvedilol 25 mg tablet 50 mg PO BID rosuvastatin 40 mg tablet 40 mg PO DAILY spironolactone 25 mg tablet 25 mg PO DAILY Discharge Orders: Discharge Order (Routine); Ordered 07/13/24 Ordered By: Ras Shea Diet: Advance to usual diet Activity on Discharge: As tolerated Stand Alone Forms: Patient Portal Discharge page Print Language: Choose Not To Answer Care Plan Goals: Continue all medicines as outlined on transfer sheet Health Concerns: PT/OT as per receiving facility Plan of Treatment: As per receiving physician Assessment: See discharge summary
[2024-07-13 11:43] VITALS: BP 121/69; PULSE 92; RESP 17; TEMP 36.4; O2SAT 95
== END 2024-07-13 12:10 | disposition skilled nursing facility (03) | DRG 45 ==
LOC: HO.ED 19:43 → HO.EDOVER 22:16 → HO.IMC 07-08 07:48
PROVIDERS: Admitting Provider Physician Assistant; Emergency Provider Emergency Medicine; PCP Internal Medicine; Visit Provider Hospitalist
DX: I63.311 Cerebral infarction due to thrombosis of right middle cerebral artery (principal); G81.94 Hemiplegia, unspecified affecting left nondominant side; I11.0 Hypertensive heart disease with heart failure; I42.9 Cardiomyopathy, unspecified; I50.22 Chronic systolic (congestive) heart failure; I95.9 Hypotension, unspecified; F10.11 Alcohol abuse, in remission; Z95.810 Presence of automatic (implantable) cardiac defibrillator; R29.702 NIHSS score 2; F17.210 Nicotine dependence, cigarettes, uncomplicated; Z71.6 Tobacco abuse counseling; E66.811 Obesity, class 1; Z68.33 Body mass index [BMI] 33.0-33.9, adult; Z91.148 Patient's other noncompliance with medication regimen for other reason; Z71.3 Dietary counseling and surveillance; Z79.899 Other long term (current) drug therapy
CPT/HCPCS: 36415; 80048; 80053; 80307; 82947; 84484; 85025; 85027; 93005; 93306; 97110; 97116; 97162; 97166; 97530; 97535; 99285; J1650; J2310; J2405; Q9957

== ENCOUNTER 2024-07-07 21:47 | Outpatient (BNV) | payer OTHER, SELFPAY | END 2024-07-08 07:00 | PROVIDERS: Admitting Provider Physician Assistant; Emergency Provider Emergency Medicine; PCP Internal Medicine; Visit Provider Internal Medicine Cardiovascular Disease | DX: I63.9 Cerebral infarction, unspecified (principal); R93.1 Abnormal findings on diagnostic imaging of heart and coronary circulation | CPT/HCPCS: 93306 ==

== ENCOUNTER 2024-07-07 21:47 | Outpatient (BNV) | payer OTHER, SELFPAY | END 2024-07-11 15:37 | PROVIDERS: Admitting Provider Physician Assistant; Emergency Provider Emergency Medicine; PCP Internal Medicine; Visit Provider Internal Medicine Cardiovascular Disease | DX: I44.0 Atrioventricular block, first degree (principal) | CPT/HCPCS: 93010 ==

== ENCOUNTER → 2024-07-07 21:47 | Outpatient (BNV) | payer OTHER, SELFPAY | PROVIDERS: Admitting Provider Physician Assistant; Emergency Provider Emergency Medicine; PCP Internal Medicine; Visit Provider Hospitalist | DX: I63.321 Cerebral infarction due to thrombosis of right anterior cerebral artery (principal); R77.8 Other specified abnormalities of plasma proteins; R53.1 Weakness | CPT/HCPCS: 99233 ==

== ENCOUNTER → 2024-07-07 21:47 | Outpatient (BNV) | payer OTHER, SELFPAY | PROVIDERS: Admitting Provider Physician Assistant; Emergency Provider Emergency Medicine; PCP Internal Medicine; Visit Provider Psychiatry & Neurology Neurology | DX: I63.321 Cerebral infarction due to thrombosis of right anterior cerebral artery (principal) | CPT/HCPCS: 99222 ==

== ENCOUNTER 2024-08-06 10:30 | Outpatient (AMB) | payer MEDICAID, SELFPAY ==
--- NOTE | 2024-08-06 10:37 | MHC.PC.OV ---
Vital Signs 08/06/24 10:39 Height 6 ft Weight 260 lb 2 oz BMI 35.3 BP 110/74 Blood Pressure Location Lt brachial Position Sitting Pulse 86 Pulse Source Pulse Oximeter Temp 97.1 F Temp Source Temporal Artery Scan Pulse Oximetry (%) 96 Oxygen Delivery Method Room Air Intake Visit Reasons: [facility] 07/29 Intake Note: Patient is here for hospital discharge follow up. Patient was discharged from [facility] on 07/29/24. Freight Loader Required: No Felt Machine Mechanic: Not Required per policy Accompanied by: Self / Same As Patient Allergies No Known Allergies [No Known Allergies*] Allergy (Verified 08/06/24 10:38) Tobacco use date assessed: 08/06/24 Dental Screening Dental Screen Date: 08/06/24 Did you have a dental visit in the last 12 months?: No Did you have a dental problem in the last 6 months where you did not have access to dental care?: No Was dental information given to patient?: No HPI HPI Comments History of Present Illness Details 48 y/o Male patient who presents to the clinic today for HDF. Past medical history significant for cardiomyopathy s/p AICD, alcohol abuse (in remission), tobacco use, and HFrEF (EF 20-25% 03/20). [place] [facility] [place] for Left sided weakness and was diagnosed with right MCA Stroke. He was discharged to [facility] and admitted 07/13 - 07/29 for physical therapy and recovery. Pt is still receiving Physical therapy at home - twice a week. Pt wondering if he can continue PT outpatient. He still does have left sided weakness Lower extremity and walks with a limp. Patient asking for weight loss medication - Zepbound. 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 Father No problems noted. Social History (Updated 08/06/24 @ 10:42 by ANNA Valenzuela) Household Members: None Housing: Other Housing Other:: [facility] Do you presently have visiting nurse or other home services: No Alcohol intake: current Alcohol intake frequency: a few times a month Alcohol type: hard liquor Patient Tobacco Use Status: Current everyday Tobacco user Tobacco use type: Cigarette Cigarette Packs Per Day: 0.25 Cigarettes Per Day: 3 Years Smoked: 20 e-Cigarette/Vaping Use: Never Used Second Hand Smoke Exposure: Yes Substance Use Type: Marijuana service: No Current occupational status: unemployed Cognitive needs: No Hearing needs: No Vision needs: No Questionnaire PHQ-9 Over the last 2 weeks, how often have you been bothered by any of the following problems? 1. Little interest or pleasure in doing things: not at all 2. Feeling down, depressed, or hopeless: not at all 3. Trouble falling or staying asleep, or sleeping too much: not at all 4. Feeling tired or having little energy: not at all 5. Poor appetite or overeating: not at all 6. Feeling bad about yourself - or that you are a failure or have let yourself or your family down: not at all 7. Trouble concentrating on things, such as reading the newspaper or watching television: not at all 8. Moving or speaking so slowly that other people could have noticed. Or the opposite - being so fidgety or restless that you have been moving around a lot more than usual: not at all 9. Thoughts that you would be better off or of hurting yourself in some way: not at all Total score: 0 Depression Screening Interpretation: Negative Depression Screening Done: Yes Source: Developed by Drs. Grover Matta, Mary Gutierrez, Cornelio Oakley and colleagues, with an educational ant from [employer]. Thrive Questionnaire Date Thrive assessed: 07/08/24 I am a: Patient What is your living situation today?: I have a steady place to live Within the past 12 months, did the food you bought not last and you didn't have the money to get more?: Often true Within the past 12 months, did you worry whether your food would run out before you got money to buy more?: Often true Do you have trouble paying for medicines?: No Do you have trouble getting transportation to medical appointments?: No Do you have trouble paying your heating and electricity bill?: No Do you have trouble taking care of your child, family member or friend?: No Do you have trouble with day-to-day activities such as bathing, preparing meals, shopping, managing finances, etc.?: No Are you currently unemployed and looking for a job?: No Are you interested in more education?: No Please select the resources that you would like help with: Housing/[facility] Currently or been in a relationship where the following occur: I choose not to answer THRIVE Score: 2 AUDIT C Alcohol Use Questionnaire (AUDIT-C) 1. How often do you have a drink containing alcohol?: Monthly or less 2. How many drinks containing alcohol do you have on a typical day when you are drinking?: 1 or 2 3. How often do you have six or more drinks on one occasion?: Less than monthly Total Score: 2 CHERRIE-7 AMB Questionnaire CHERRIE-7 Date CHERRIE - 7 assessed: 08/06/24 Feeling nervous, anxious, or on edge: 0 = Not at all Not being able to stop or control worryin = Not at all Worrying too much about different things: 0 = Not at all Trouble relaxin = Not at all Being so restless that it is hard to sit still: 0 = Not at all Becoming easily annoyed or irritable: 0 = Not at all Feeling afraid as if something awful might happen: 0 = Not at all Total CHERRIE-7 score (0-4 normal; 5-9 mild; 10-14 moderate; 15-21 severe): 0 Source: Developed by Drs. Grover Matta, Mary Gutierrez, Cornelio Oakley and colleagues, with an educational ant from [employer]. Review of Systems Const All systems reviewed & are unremarkable except as noted in HPI and below Physical exam (Primary Care) Vital Signs: Last Vital Signs Temp 97.1 F 08/06/24 10:39 Pulse 86 08/06/24 10:39 BP 110/74 08/06/24 10:39 Pulse Ox 96 08/06/24 10:39 Oxygen Delivery Method Room Air 08/06/24 10:39 BMI result Body Mass Index 35.3 Tobacco/Smoking Status: Tobacco use Status Tobacco use date assessed 08/06/24 08/06/24 10:41 Patient Tobacco Use Status Current everyday Tobacco 08/06/24 10:42 Tobacco use type Cigarette 08/06/24 10:42 e-Cigarette/Vaping Use Never Used 08/06/24 10:42 PHQ-9: PHQ-9 Score PHQ-9: Total score 0 08/06/24 10:51 Depression Screening Interpretation: Negative Thrive Assessment: Date of Thrive Assessment Date Thrive assessed 07/08/24 08/06/24 10:41 Currently or been in a relationship where the following occur: I choose not to answer Const General: no acute distress Nutritional Appearance: obese Orientation/consciousness: patient oriented x3 Resp Effort & Inspection: normal respiratory effort Auscultation: clear to auscultation bilaterally Cardio Heart sounds: S1 normal heart sound present and S2 normal heart sound present Neuro Other: 3/5 Strength Left LE. Walks with a Limp. General: patient oriented x3 and moves all extremities Gait exam (Neuro): Shuffling gait present Psych Speech and movement: Slowed speech present (Psych) (Speaks with a slight delay) Affect: normal affect Coding Level of Care Code Est Pt Level 4 (03148) Diagnoses 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 I63.321 Cerebral infarction mechanism: thrombosis Laterality of affected vessel: right Precerebral and cerebral artery: anterior cerebral artery Time Spent (min) 20 Assessment & Plan Assessment & Plan (1) Cerebral infarction: Code(s): I63.9 - Cerebral infarction, unspecified Category: Medical Qualifiers: Cerebral infarction mechanism: thrombosis Laterality of affected vessel: right Precerebral and cerebral artery: anterior cerebral artery Qualified Code(s): I63.321 - 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 Plan: Stable, Left LE weakness. Continue with Physical Therapy at home.
[2024-08-06 10:39] VITALS: BP 110/74; PULSE 86; TEMP 36.2; O2SAT 96; BMI 35.3
== END 2024-08-06 11:10 | disposition home or self-care (01) ==
LOC: HO.HMCH 10:31
PROVIDERS: PCP Internal Medicine; Visit Provider Nurse Practitioner Family
DX: I63.321 Cerebral infarction due to thrombosis of right anterior cerebral artery (principal)

== ENCOUNTER → 2024-08-06 10:30 | Outpatient (BNVA) | payer MEDICAID, SELFPAY | PROVIDERS: PCP Internal Medicine; Visit Provider Nurse Practitioner Family | DX: I42.9 Cardiomyopathy, unspecified (principal); Z86.73 Personal history of transient ischemic attack (TIA), and cerebral infarction without residual deficits | CPT/HCPCS: 99212 ==

== ENCOUNTER 2024-09-06 08:58 | Outpatient (AMB) | payer MEDICAID, SELFPAY ==
--- NOTE | 2024-09-06 09:04 | A.OFFPC_ITS ---
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 Accompanied by: Self / Same As Patient Allergies No Known Allergies [No Known Allergies*] Allergy (Verified 09/06/24 09:28) Medication List - Last Reconciled 09/06/24 by Lazara Green MD amlodipine 5 mg PO DAILY 90 days aspirin 81 mg PO DAILY carvedilol 50 mg PO BID dapagliflozin propanediol (Farxiga) 10 mg PO DAILY 90 days nicotine 1 patch transdermal DAILY 28 days rosuvastatin 40 mg PO DAILY sacubitril-valsartan 97-103 mg (Entresto) 1 tab PO BID 90 days spironolactone 25 mg PO DAILY Tobacco use date assessed: 08/06/24 Dental Screening Dental Screen Date: 08/06/24 HPI HPI Comments History of Present Illness Details The patient is a 48-year-old male presenting with follow-up for chronic conditions management, including cardiomyopathy, essential hypertension, and obesity, alongside monitoring following a previous stroke. His hospitalization in June due to unilateral weakness culminated in a CT scan identifying lacunar infarcts. His condition has progressed positively with improved ambulation, though his chronic management still requires a focused regimen including the use of a defibrillator and medications like amlodipine, aspirin, and carvedilol. Despite his efforts to discontinue smoking with nicotine patches, he faces challenges. He also has anemia of chronic disease. The patient's BMI indicates class II obesity, concurrent with stable but high blood pressure, chronic systolic congestive heart failure, and anemia secondary to cardiac conditions. He reports no chest pain or dyspnea, though physical demands of his job exacerbate weakness in his left leg. Fluid retention is discussed with recommendations for daily weight monitoring. His medication regimen reflects an intersection of cardiovascular maintenance and the need to manage obesity without significant calorie reduction or embracing weight management programs. 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 Father No problems noted. Social History Household Members: None Housing: Other Housing Other:: Group Home Do you presently have visiting nurse or other home services: No Alcohol intake: current Alcohol intake frequency: a few times a month Alcohol type: hard liquor Patient Tobacco Use Status: Current everyday Tobacco user Tobacco use type: Cigarette Cigarette Packs Per Day: 0.25 Cigarettes Per Day: 3 Years Smoked: 20 Packs Per Year: 5 Packs per year/per ci.00 e-Cigarette/Vaping Use: Never Used Second Hand Smoke Exposure: Yes Substance Use Type: Marijuana service: No Current occupational status: unemployed Cognitive needs: No Hearing needs: No Vision needs: No Questionnaire PHQ-9 Over the last 2 weeks, how often have you been bothered by any of the following problems? 1. Little interest or pleasure in doing things: not at all 2. Feeling down, depressed, or hopeless: not at all 3. Trouble falling or staying asleep, or sleeping too much: not at all 4. Feeling tired or having little energy: not at all 5. Poor appetite or overeating: not at all 6. Feeling bad about yourself - or that you are a failure or have let yourself or your family down: not at all 7. Trouble concentrating on things, such as reading the newspaper or watching television: not at all 8. Moving or speaking so slowly that other people could have noticed. Or the opposite - being so fidgety or restless that you have been moving around a lot more than usual: not at all 9. Thoughts that you would be better off or of hurting yourself in some way: not at all Total score: 0 Depression Screening Interpretation: Negative Depression Screening Done: Yes 57622 - PHQ-9 Billing: Yes Source: Developed by Drs. Grover Matta, Mary Gutierrez, Cornelio Oakley and colleagues, with an educational ant from [employer]. Thrive Questionnaire Date Thrive assessed: 09/06/24 I am a: Patient What is your living situation today?: I have a steady place to live Within the past 12 months, did the food you bought not last and you didn't have the money to get more?: Often true Within the past 12 months, did you worry whether your food would run out before you got money to buy more?: Often true Do you have trouble paying for medicines?: No Do you have trouble getting transportation to medical appointments?: No Do you have trouble paying your heating and electricity bill?: No Do you have trouble taking care of your child, family member or friend?: No Do you have trouble with day-to-day activities such as bathing, preparing meals, shopping, managing finances, etc.?: No Are you currently unemployed and looking for a job?: No Are you interested in more education?: No Please select the resources that you would like help with: Housing/Group Home Currently or been in a relationship where the following occur: I choose not to answer THRIVE Score: 2 AUDIT C Alcohol Use Questionnaire (AUDIT-C) 1. How often do you have a drink containing alcohol?: Monthly or less 2. How many drinks containing alcohol do you have on a typical day when you are drinking?: 1 or 2 3. How often do you have six or more drinks on one occasion?: Less than monthly Total Score: 2 Score Reviewed/Action Taken: No CHERRIE-7 AMB Questionnaire CHERRIE-7 Date CHERRIE - 7 assessed: 09/06/24 Feeling nervous, anxious, or on edge: 0 = Not at all Not being able to stop or control worryin = Not at all Worrying too much about different things: 0 = Not at all Trouble relaxin = Not at all Being so restless that it is hard to sit still: 0 = Not at all Becoming easily annoyed or irritable: 0 = Not at all Feeling afraid as if something awful might happen: 0 = Not at all Total CHERRIE-7 score (0-4 normal; 5-9 mild; 10-14 moderate; 15-21 severe): 0 Source: Developed by Drs. Grover Matta, Mary Gutierrez, Cornelio Oakley and colleagues, with an educational ant from [employer]. CHERRIE-7 Assessment Billing CHERRIE-7 Assessment Tool: CHERRIE-7 Assessment 75255 Review of Systems Const All systems reviewed & are unremarkable except as noted in HPI and below Card Denies chest pain at rest, Denies chest pain with activity, Denies edema, Denies irregular heart rhythm, Denies claudication, Denies dyspnea, Denies dyspnea on exertion, Denies orthopnea, Denies paroxysmal nocturnal dyspnea and Denies slow heart rate Resp Denies cough, Denies dyspnea and Denies dyspnea on exertion GI Denies abdominal pain, Denies change in bowel habits, Denies excessive flatus, Denies nausea and Denies vomiting Denies urinary hesitancy, Denies urinary incontinence and Denies urinary urgency Musc Denies abnormal gait, Denies atrophy, Denies deformity and Denies limited range of motion Skin/Breast Denies bleeding lesions, Denies changing lesions and Denies rash Neuro Denies abnormal gait, Denies behavioral changes and Denies lack of coordination Psych Denies behavioral changes Physical exam (Primary Care) Vital Signs: Last Vital Signs BP 126/72 09/06/24 09:06 BMI result Body Mass Index 35.4 BMI Assessment/Plan discussion: High BMI High, discussed plan: lifestyle, weight reduction, dietary, physical activity and alcohol moderation Tobacco/Smoking Status: Tobacco use Status Tobacco use date assessed 08/06/24 09/06/24 09:21 Patient Tobacco Use Status Current everyday Tobacco 09/06/24 09:21 Tobacco use type Cigarette 09/06/24 09:21 e-Cigarette/Vaping Use Never Used 09/06/24 09:21 Are you ready to quit: No Tobacco cessation counseling provided: Yes Items discussed: QuitWorks Relapse Prevention: discussed the importance of a supportive environment, discussed extending NRT, discussed negative mood or depression after quitting, weight gain after smoking is common and discussed dietary, exercise and/or lifestyle changes Number of minutes spent counselin CPT code: 06849 - 4-10 Minutes PHQ-9: PHQ-9 Score PHQ-9: Total score 0 09/06/24 09:31 Depression Screening Interpretation: Negative Thrive Assessment: Date of Thrive Assessment Date Thrive assessed 09/06/24 09/06/24 09:21 Currently or been in a relationship where the following occur: I choose not to answer Resp Effort & Inspection: normal respiratory effort Auscultation: clear to auscultation bilaterally Cardio Jugular venous distension: no JVD Rate: regular rate Rhythm: regular rhythm Heart sounds: S1 normal heart sound present and S2 normal heart sound present Extrem General: Yes full ROM Coding Level of Care Code Est Pt Level 4 (80285) Complex EM visit Add On G2211 Diagnoses Essential hypertension I10 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 I63.321 Cerebral infarction mechanism: thrombosis Precerebral and cerebral artery: anterior cerebral artery Laterality of affected vessel: right BMI 35.0-35.9,adult Z68.35 Cardiomyopathy I42.9 Hyperlipidemia E78.5 Anemia of chronic disease D63.8 Vitamin D deficiency E55.9 Additional Codes CHERRIE-7 Assessment Billing - CHERRIE-7 Assessment Tool: CHERRIE-7 Assessment 59778 ([id number]) PHQ-9 - 68535 - PHQ-9 Billing: Yes ([id number]) Vital Signs *Quality* - CPT code: 99584 - 4-10 Minutes ([id number]) Time Spent (min) 24 Assessment & Plan Assessment & Plan (1) Essential hypertension: Code(s): I10 - Essential (primary) hypertension Category: Medical (2) Cerebral infarction: Code(s): I63.9 - Cerebral infarction, unspecified Category: Medical Qualifiers: Cerebral infarction mechanism: thrombosis Precerebral and cerebral artery: anterior cerebral artery Laterality of affected vessel: right Qualified Code(s): I63.321 - 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 (3) BMI 35.0-35.9,adult: Code(s): Z68.35 - Body mass index [BMI] 35.0-35.9, adult Category: Medical (4) Cardiomyopathy: Code(s): I42.9 - Cardiomyopathy, unspecified Category: Medical (5) Hyperlipidemia: Code(s): E78.5 - Hyperlipidemia, unspecified Category: Medical (6) Anemia of chronic disease: Code(s): D63.8 - Anemia in other chronic diseases classified elsewhere Category: Medical (7) Vitamin D deficiency: Code(s): E55.9 - Vitamin D deficiency, unspecified Category: Medical Plan The continuity in managing the patient's cardiomyopathy involves maintaining cardiovascular health through medication. Weight management will include exploring pharmaceutical options like GLP-1 agonists, pending insurance. Tobacco use remains a considerable focus, with efforts to find a successful cessation method ongoing. Addressing fluid retention and monitoring for signs of exacerbated heart failure are critical component considerations. His work-leave recommendation aligns to reduce irritative physical activity impacts on his legs until stable. Chronic disease anemia is monitored, with repeat evaluations planned to coincide with February blood work. Patient was informed and verbally consented to the use of an ambient scribe for clinic note documentation during this visit. In our discussion, comprehensive management of the patient's cardiomyopathy and associated conditions remained the focal point. We will explore new weight management solutions to support cardiovascular health. Important conditions that emerged include handling his smoking cessation with different aids as nicotine patches underperformed. A GLP-1 agonist may assist with weight control, contingent on approval. The importance of fluid balance was emphasized, urging routine self-monitoring of weight and alertness to incremental changes pointing toward fluid retention. Discussed work-related matters and suggested temporary leave. Discussed anticipated blood work planned in February for ongoing anemia surveillance. Reassurance given regarding lack of acute symptoms beyond noted issues. Orders: Orders Complete Blood Count Auto Diff 6 Months D64.9 - Anemia, unspecified IRON PROFILE 6 Months D64.9 - Anemia, unspecified Thyroid Stimulating Hormone 6 Months R79.89 - Other specified abnormal findings of blood chemistry Lipid Panel 6 Months E78.5 - Hyperlipidemia, unspecified Vitamin D 25-OH Total 6 Months E55.9 - Vitamin D deficiency, unspecified Comprehensive [place]. 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 - Aim to quit smoking; consider alternative cessation aids. - Monitor weight daily for fluctuations; report any significant changes. - Adhere to a reduced calorie diet and exercise as feasible. - Recognize any signs of heart failure, like sudden leg swelling or shortness of breath and notify promptly. - Follow through with planned blood work in February. 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 - Discuss with pharmacy regarding insurance approval for GLP-1 agonist.
[2024-09-06 09:06] VITALS: BP 126/72; BMI 35.4
== END 2024-09-06 09:36 | disposition home or self-care (01) ==
LOC: HO.HMCH 08:59
PROVIDERS: PCP Internal Medicine; Visit Provider Internal Medicine
DX: I10 Essential (primary) hypertension (principal); I63.321 Cerebral infarction due to thrombosis of right anterior cerebral artery; Z68.35 Body mass index [BMI] 35.0-35.9, adult; I42.9 Cardiomyopathy, unspecified; E78.5 Hyperlipidemia, unspecified; D63.8 Anemia in other chronic diseases classified elsewhere; E55.9 Vitamin D deficiency, unspecified

== ENCOUNTER → 2024-09-06 08:58 | Outpatient (BNVA) | payer OTHER, SELFPAY | PROVIDERS: PCP Internal Medicine; Visit Provider Internal Medicine | DX: I10 Essential (primary) hypertension (principal); I42.9 Cardiomyopathy, unspecified; E78.5 Hyperlipidemia, unspecified; D63.8 Anemia in other chronic diseases classified elsewhere; E55.9 Vitamin D deficiency, unspecified; E66.9 Obesity, unspecified; Z68.35 Body mass index [BMI] 35.0-35.9, adult; Z86.73 Personal history of transient ischemic attack (TIA), and cerebral infarction without residual deficits; Z79.82 Long term (current) use of aspirin; Z79.899 Other long term (current) drug therapy; Z13.31 Encounter for screening for depression; Z13.30 Encounter for screening examination for mental health and behavioral disorders, unspecified | CPT/HCPCS: 96127; 99212 ==

== ENCOUNTER 2025-02-09 10:38 | Emergency (ER) | payer OTHER, SELFPAY ==
--- NOTE | ~2025-02-09 | CT_ITS ---
EXAMINATION: CT HEAD WITHOUT IV CONTRAST HISTORY: prior R sided CVA, R parietal headache. TECHNIQUE: Unenhanced helical CT of the head was performed per standard departmental protocol. Coronal and sagittal reformats of the head were also evaluated. One or more of the following techniques was used for dose reduction: Automated exposure control, adjustment of the mA and/or kV according to patient size, use of iterative reconstruction technique. DLP: 649 mGy-cm COMPARISON: Previous head and neck CTA June 2024 FINDINGS: BRAIN: No evidence of an extra-axial collection. No evidence of intra or extra-axial hemorrhage. Right frontal and parietal peripheral or subcortical infarcts possibly in a watershed distribution. Old right basal ganglia lacunar infarcts. Old right cerebellar infarct. Old left occipital infarct. These appear unchanged from prior June 2024 exam. Right periventricular white matter infarct in the right frontal lobe adjacent to the frontal horn of the right lateral ventricle for example axial image 28 series 2. This appears old but may be more prominent or increased from prior June 2024 exam. No acute infarct, mass or mass effect. No evidence of intra or extra-axial hemorrhage. The ventricles and extra-axial CSF spaces are appropriate. There is mild nonspecific periventricular white matter disease. SINUSES: Small polyp or mucous retention cyst in the left frontal sinus. The visualized paranasal sinuses are otherwise clear. The mastoid air cells and middle ear cavities are well pneumatized. ORBITS: The visualized orbits are unremarkable. BONES/SOFT TISSUES: The extracranial soft tissues are unremarkable. The calvarium is intact. No suspicious lytic or sclerotic lesions. CT/CT head/brain wo IV con IMPRESSION: Multiple old appearing bilateral infarcts, right greater than left. There may be interval increase in right frontal lobe periventricular white matter infarct compared to June 2024 exam. Otherwise bilateral infarcts appear unchanged. No hemorrhage. Electronically signed by: Grisel Daley MD 02/09/2025 12:30 PM [facility]
[2025-02-09 10:39] VITALS: BP 132/90; PULSE 88; RESP 16; TEMP 37; O2SAT 92; BMI 34.8
--- NOTE | 2025-02-09 10:39 | ED_ITS ---
HPI - General Adult General Chief complaint: Neuro Symptoms/Deficit Stated complaint: Headache, blurred vision Time Seen by Provider: 02/09/25 11:14 History of Present Illness ED Provider: mushtaq PIPER narrative: History of Present Illness The patient presents to the Emergency Department reporting 30 days of a ?pretty bad? headache localized to the right posterior head that is notably exacerbated by coughing. He also reports new-onset blurry vision in both eyes when trying to read small print. Additional concerns include chronic insomnia, which he states has been worse over the past several days, and difficulty ?going,? though further details were not clarified. He denies chest pain and shortness of breath. He reports no new medications since his ischemic cerebrovascular accident (right MCA territory) in June 2024, after which he experienced two weeks of left-sided weakness now resolved. He also describes that during the initial stroke event, he couldn't feel [his] leg and was unable to stay on his feet for long, but has since regained the ability to walk. He is on an unspecified blood thinner. He was advised to take 800 mg (stated ?18 mg?) of Motrin but has not been taking it. Related Data Home Medications ?Medication ?Instructions ?Recorded ?Confirmed spironolactone 25 mg tablet 25 mg PO DAILY 03/26/21 carvedilol 25 mg tablet 50 mg PO BID 07/07/24 rosuvastatin 40 mg tablet 40 mg PO DAILY 07/07/2412/23 Previous Rx's ?Medication ?Instructions ?Recorded amlodipine 5 mg tablet 5 mg PO DAILY 90 days #90 ta bs 03/18/24 sacubitril 97 mg-valsartan 103 mg 1 tab PO BID 90 days #180 tabs 03/18/24 tablet (Entresto) aspirin 81 mg capsule 81 mg PO DAILY #30 caps 06/29 08/22 semaglutide (weight loss) 0.25 0.25 mg (0.5 mL) subcut QWEEK 4 09/17/24 mg/0.5 mL subcutaneous pen weeks #2 mL injector (Wegovy) dapagliflozin propanediol 10 mg 10 mg PO DAILY 90 days #90 tabs 12/20/24 tablet (Farxiga) Allergies Allergy/AdvReac Type Severity Reaction Status Date / Time No Known Allergies (No Known Allergy Verified 02/09/25 10:43 Allergies*) Review of Systems 2 Review of Systems: Review of Systems Limited to the systems below?otherwise not discussed: - General: Denies acute dyspnea or chest pain. - Neurologic: Positive for right posterior headache worse with cough; positive for blurred vision; denies current focal weakness; reports chronic insomnia, worse recently. - HEENT (Eyes): Reports blurred vision in both eyes. - Respiratory: Denies shortness of breath. - Cardiovascular: Denies chest pain; no reported palpitations or device shocks. - Constitutional: Difficulty sleeping; no fever reported. - Genitourinary: Reports difficulty ?going? (details not specified). [facility] Past Medical History [facility] Narrative: Past Medical History - Ischemic cerebrovascular accident (right MCA) ? 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 Father No problems noted. Social History Social History Household Members: None Housing: Other Housing Other:: Half-Way Do you presently have visiting nurse or other home services: No Alcohol intake: former Patient Tobacco Use Status: Current everyday Tobacco user Tobacco use type: Cigarette Cigarette Packs Per Day: 0.25 Cigarettes Per Day: 3 Years Smoked: 20 e-Cigarette/Vaping Use: Never Used Second Hand Smoke Exposure: Yes Substance Use Type: Marijuana Advance Directives Date on File: 07/14/24 service: No Current occupational status: unemployed Cognitive needs: No Hearing needs: No Vision needs: No Physical Exam ED Exam Exam: EXAM: Gen: Alert, awake, well appearing, well hydrated. Head: Atraumatic Eyes: Anicteric, Normal conjunctiva. ENT: Moist mucosa, no pallor. ? Neck: Supple. Skin: ?No observable rash or bruising on exposed or examined skin Respiratory: Breathing comfortably, No distress.Clear to auscultation bilaterally, symmetric chest expansion, No wheeze, rales, ronchi. Cardiovascular: Regular rate and rhythm. No murmurs or rub. Well perfused periphery, warm extremities. No edema. ? Abdominal: No focal tenderness. Soft, no objective distension. No palpable masses or obvious organomegaly. ?No guarding, no rebound tenderness or other peritoneal findings. : No flank tenderness. Neuro: Alert. Gross movement of all extremities intact. ?5/5 strength bilateral upper and lower extremities. Face symmetric. No nystagmus. Pupils symmetric and reactive Normal clear speech alert and oriented mild scalp tenderness right side parietal gross cranial nerve testing symmetric and normal Psych: Calm. Cooperative. MSK: No grossly visible deformity. Vital signs: See flowsheet Vital Signs: Vital Signs - 24 hr 02/09/25 13:16 Temperature 97 F Pulse Rate 68 Respiratory Rate 16 Blood Pressure 118/90 H Pulse Oximetry 98 Oxygen Delivery Method Room Air BMI result Body Mass Index 34.8 Course Course Course Narrative: This is a Rapid Medical Examination (RME) performed by Ajay Frazier PA-C in triage. Full HPI, ROS, assessment and treatment plan per primary provider in the Main ED. Hx: 49 yo M hx cardiomyopathy w/ implanted defibrilator, HTN here from PCP office reporting insomnia x days, bilateral blurred vision and headache since last night. hx of CVA in may 2024 - completed PT, some residual L sided weakness. denies thinners, takes aspirin. compliant w/ BP meds. PE/vitals: AOX3. NIH 0. ambulating w/ steady gait. perrla. Plan: labs, ekg, will defer head imaging to primary provider Medications Administered Discontinued Medications Generic Name Dose Route Start Last Admin Trade Name Freq PRN Reason Stop Dose Admin Acetaminophen 975 mg 02/09/25 12:49 02/09/25 13:11 Acetaminophen 325 Mg Tablet PO 02/09/25 12:50 975 mg ONCE ONE Administration Medical Decision Making Medical Decision Making [facility] Narrative: Assessment & Plan Diagnoses: - 1. Headache, cough-induced, right occipital ? chronic x30 days -head CT given the anticoagulation prior stroke. Given that this is associated only with coughing this is unlikely to be intracranial process but CT should exclude ICH mass etcetera the neurologic exam is actually reassuring 2. Blurred vision, bilateral -unclear etiology no focal or visual field deficits described blurriness is vague 3. Insomnia (exacerbation of chronic) -chronic unclear whether this is related to CVA or psychiatric 4. History of ischemic CVA (June 2024) - CT without acute intracranial process. Reassuring neurologic exam. No thunderclap doubt SAH, doubt dural thrombus though this was considered, probably tension or musculoskeletal or migrainous or related to the previous CVA. Insomnia possibly psychiatric follow up with PCP Consults none obtained Tests interpreted independently: ECG: Sinus rhythm rate [address] depression T-wave inversions lateral V4 to V6 large P waves unchanged from previous from June 2024 likely related to the patient's HFrEF cardiomyopathy Lab Data MDM Lab Attestation statement: I reviewed the patient's lab results. 02/09/25 11:03 02/09/25 11:03 Labs: Lab Results 02/09/25 Range/Units 11:03 WBC 7.0 (4.8-10.8) X10*3/uL RBC 4.65 (4.60-5.80) X10*6/uL Hgb 13.8 L (14.0-18.0) g/dl Hct 42.8 (42.0-52.0) % MCV 92.0 (80.0-98.0) fL MCH 29.7 (27.0-33.0) pg MCHC 32.2 (31.0-36.0) g/dl RDW 14.0 (11.0-16.0) % Plt Count 256 (160-400) X10*3/uL MPV 10.5 (9.4-12.4) fL Immature Gran % (Auto) 0.3 (0.0-0.4) % Neut % (Auto) 61.6 (45-73) % Lymph % (Auto) 24.2 (20-40) % Graves % (Auto) 7.6 (2-11) % Eos % (Auto) 5.6 H (0-4) % Baso % (Auto) 0.7 (0-2) % Lymph # (Auto) 1.7 (1.2-4.9) X10*3/uL Graves # (Auto) 0.5 (0.1-1.2) X10*3/uL Eos # (Auto) 0.4 (0.0-0.4) X10*3/uL Baso # (Auto) 0.1 (0.0-0.2) X10*3/uL Abs Immat Gran (auto) 0.02 (0.00-0.03) X10*3/uL Absolute Neuts (auto) 4.3 (2.0-8.3) x10*3/uL Absolute Nucleated RBC 0.000 (0.0-0.012) X10*3/uL Nucleated RBC % (auto) 0.0 (0.0-0.2) /100WBC ESR 16 H (0-15) MM/HR Sodium 141 (135-145) mmol/L Potassium 3.3 (3.3-5.1) mmol/L Chloride 106 (96-108) mmol/L Carbon Dioxide 27 (22-29) mmol/L Anion Gap 11 L (12-20) BUN 15 (9-16) mg/dL Creatinine 1.33 (0.5-1.4) mg/dL Estim Creat Clear Calc 90.4 Estimated GFR 58 Random Glucose 126 H (60-115) mg/dL Calcium 9.2 (8.4-10.2) mg/dL Magnesium 2.0 (1.6-2.6) mg/dL Total Bilirubin 0.4 (0.0-1.0) mg/dL AST 28 (5-37) U/L ALT 19 (0-40) U/L Alkaline Phosphatase 107 (39-117) U/L C-Reactive Protein 2.34 H (< or = 0.50) mg/dL Total Protein 7.3 (6.5-8.0) g/dL Albumin 4.2 (3.5-5.0) g/dL Lipase 12 (8-78) U/L Discharge Plan Discharge Clinical Impression: Headache Patient Disposition: Home, Self-Care Instructions: Acute Headache (DC) Additional Instructions: _ DISCHARGE DIAGNOSES: Headache no severe or acute pathology identified on CT your examination Insomnia acute on chronic need to discuss with PCP and/or referral to psychiatrist HISTORY OF PRESENTATION: ?Insomnia, blurred vision, headache EMERGENCY DEPARTMENT COURSE,TESTS, TREATMENTS: While in the ED today CT was reassuring. Your neurologic exam was reassuring. We do not find any acute or severe emergent pathology on exam or workup here DISCHARGE MEDICATIONS: ?[We have made no changes to your regular medication regimen] FOLLOW-UP: ?Call your primary or general physician soon as possible to discuss your symptoms, your ED visit and to discuss follow up plans Call your primary doctor you may need follow up they may be able to provide some insomnia medication which were not willing to prescribe in the emergency department INSTRUCTIONS ?& RETURN PRECAUTIONS: If any symptoms change first call your primary physician, if it is after-hours your primary doctors office should have a provider software solutions architect you can speak with. If the symptoms are severe or very concerning to you then call 911 or return to the ED. Return for severe or worsening headache Edi Saini MD Emergency Physician [facility] Prescriptions: No Action amlodipine 5 mg tablet 5 mg PO DAILY 90 Days Qty: 90 1RF sacubitril-valsartan [Entresto] 97-103 mg tablet 1 tab PO BID 90 Days Qty: 180 1RF Wegovy 0.25 mg/0.5 mL pen injector 0.25 mg subcut QWEEK 28 Days Qty: 2 0RF Rx Instructions: administer weeks 1 through 4 of therapy dapagliflozin propanediol [Farxiga] 10 mg tablet 10 mg PO DAILY 90 Days Qty: 90 0RF aspirin 81 mg capsule 81 mg PO DAILY Qty: 30 0RF carvedilol 25 mg tablet 50 mg PO BID rosuvastatin 40 mg tablet 40 mg PO DAILY spironolactone 25 mg tablet 25 mg PO DAILY Interventions: ED Discharge Assessment Last Done: 02/09/25 13:16 Discharge Date/Time: 02/09/25 13:17 Print Language: Polish
--- NOTE | 2025-02-09 10:44 | ECG_ITS ---
Test Reason : BLURRED VISION Blood Pressure : */* mmHG Vent. Rate : 82 BPM Atrial Rate : 82 BPM P-R Int : 184 ms QRS Dur : 110 ms QT Int : 410 ms P-R-T Axes : 47 -5 176 degrees QTcB Int : 479 ms Normal sinus rhythm Voltage criteria for left ventricular hypertrophy ( R in aVL , Sokolow-Ellis , Anupam product ) ST & T wave abnormality, consider inferolateral ischemia Prolonged QT Abnormal ECG When compared with ECG of 11-Jul-2024 15:37, [place] interval has decreased T wave inversion less evident in Inferior leads Referred By: Salena Frazier Electronically Signed By: MOY SALDAÑA MD
--- NOTE | 2025-02-09 11:06 | PC.NURSE ---
patient presents to ED with complaints of blurry vision in both eyes, patient states that the blurry vision started last night. patient states he has hx of previous stroke, with left sided weakness. patient states that since yesterday he has been having increased left arm numbness, states he was helping a friend paint yesterday and the symptoms started shortly after. patient states he has a right posterior headache that started yesterday as well after helping his friend. #20 placed in the LAC, labs obtained and sent. patient placed on tele monitor
[2025-02-09 11:07] LABS: MANUAL DIFF FLAG NO
[2025-02-09 11:11] LABS: Hematocrit 42.8 % (42.0-52.0); Hemoglobin 13.8 g/dl (14.0-18.0); Imm Gran Abs Auto 0.02 X10*3/uL (0.00-0.03); Imm Gran Pct Auto 0.3 % (0.0-0.4); Lymphocytes Absolute Auto 1.7 X10*3/uL (1.2-4.9); Mean Corpuscular HGB Conc 32.2 g/dl (31.0-36.0); Mean Corpuscular Hemoglobin 29.7 pg (27.0-33.0); Mean Corpuscular Volume 92.0 fL (80.0-98.0); NRBC Abs Auto 0.000 X10*3/uL (0.0-0.012); NRBC Pct Auto 0.0 /100WBC (0.0-0.2); Platelet Count 256 X10*3/uL (160-400); Red Blood Count 4.65 X10*6/uL (4.60-5.80); White Blood Count 7.0 X10*3/uL (4.8-10.8)
[2025-02-09 11:28] LABS: Alanine Aminotransferase 19 U/L (0-40); Albumin Level 4.2 g/dL (3.5-5.0); Alkaline Phosphatase 107 U/L (39-117); Anion Gap 11 (12-20); Aspartate Amino Transferase 28 U/L (5-37); Blood Urea Nitrogen 15 mg/dL (9-16); Calcium 9.2 mg/dL (8.4-10.2); Carbon Dioxide 27 mmol/L (22-29); Chloride 106 mmol/L (96-108); Creatinine Clr Calc Pharmacy 90.4; Estimated Glomerular Filt Rate 58; Lipase 12 U/L (8-78); Magnesium 2.0 mg/dL (1.6-2.6); Potassium 3.3 mmol/L (3.3-5.1); Sodium 141 mmol/L (135-145); Total Protein 7.3 g/dL (6.5-8.0)
[2025-02-09 11:49] LABS: Erythrocyte Sedimentation Rate 16 MM/HR (0-15)
[2025-02-09 13:16] VITALS: BP 118/90; PULSE 68; RESP 16; TEMP 36.1; O2SAT 98
== END 2025-02-09 13:17 | disposition home or self-care (01) ==
PROVIDERS: Physician Assistant Medical; Emergency Provider Emergency Medicine; PCP Internal Medicine
DX: R51.9 Headache, unspecified (principal); I10 Essential (primary) hypertension; Z86.73 Personal history of transient ischemic attack (TIA), and cerebral infarction without residual deficits; Z79.01 Long term (current) use of anticoagulants
CPT/HCPCS: 36415; 70450; 80053; 83690; 83735; 85025; 85652; 86140; 93005; 99212; 99284

== ENCOUNTER → 2025-02-09 10:44 | Outpatient (BNV) | payer OTHER, SELFPAY | PROVIDERS: Emergency Provider Emergency Medicine; PCP Internal Medicine; Visit Provider Internal Medicine Cardiovascular Disease | DX: I51.7 Cardiomegaly (principal) | CPT/HCPCS: 93010 ==

== ENCOUNTER → 2025-02-09 11:53 | Outpatient (BNV) | payer OTHER, SELFPAY | PROVIDERS: Emergency Provider Emergency Medicine; PCP Internal Medicine; Visit Provider Radiology Diagnostic Radiology | DX: R51.9 Headache, unspecified (principal); Z86.73 Personal history of transient ischemic attack (TIA), and cerebral infarction without residual deficits | CPT/HCPCS: 70450 ==

== ENCOUNTER 2025-03-22 14:27 | Outpatient (AMB) | payer OTHER, SELFPAY ==
[2025-03-22 14:36] VITALS: BP 160/100; PULSE 99; RESP 16; TEMP 36.1; O2SAT 99; BMI 34.9
--- NOTE | 2025-03-22 14:36 | A.OFFPC_ITS ---
Vital Signs 03/22/25 14:36 Height 6 ft Weight 257 lb BMI 34.9 BP 160/100 H Blood Pressure Location Lt brachial Position Sitting Respiration 16 Pulse 99 Pulse Source Pulse Oximeter Temp 96.9 F Temp Source Temporal Artery Scan Pulse Oximetry (%) 99 Oxygen Delivery Method Room Air Intake Visit Reasons: Annual Exam Rn Acute Dialysis Required: No Accompanied by: Self / Same As Patient Allergies No Known Allergies (No Known Allergies*) Allergy (Verified 03/22/25 14:47) Medication List - Last Reconciled 03/22/25 by Lazara Green MD amlodipine 5 mg PO DAILY 90 days aspirin 81 mg PO DAILY carvedilol 50 mg PO BID dapagliflozin propanediol (Farxiga) 10 mg PO DAILY 90 days rosuvastatin 40 mg PO DAILY sacubitril-valsartan 97-103 mg (Entresto) 1 tab PO BID 90 days semaglutide (weight loss) (Wegovy) 0.25 mg (0.5 mL) subcut QWEEK 4 weeks spironolactone 25 mg PO DAILY Tobacco use date assessed: 03/22/25 Dental Screening Dental Screen Date: 03/22/25 Did you have a dental visit in the last 12 months?: No Did you have a dental problem in the last 6 months where you did not have access to dental care?: No Was dental information given to patient?: Patient has dentist HPI HPI Comments History of Present Illness Details This is a 49-year-old male with chronic systolic congestive heart failure that comes for his physical exam. He complains of chest pain that happened last night and has not been able to sleep for the last 3 days. Also has blurry vision and will be referred to Ophthalmology. Last ejection fraction in 2020 was 20-25%. Denies any leg swelling or shortness on breath. Will have another echocardiogram. Had bilateral old infarction in head CT of last month and has some left leg weakness but able to walk with no assistive device. Blood pressure elevated and I will increase amlodipine. Cologuard will be ordered to screen for colon cancer. 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 Father No problems noted. Social History Household Members: None Housing: Other Housing Other:: [facility] Do you presently have visiting nurse or other home services: No Alcohol intake: former Patient Tobacco Use Status: Current everyday Tobacco user Tobacco use type: Cigarette Cigarette Packs Per Day: 0.25 Cigarettes Per Day: 3 Years Smoked: 20 e-Cigarette/Vaping Use: Never Used Second Hand Smoke Exposure: Yes Substance Use Type: Marijuana Advance Directives Date on File: 07/14/24 service: No Current occupational status: unemployed Cognitive needs: No Hearing needs: No Vision needs: No Questionnaire PHQ-9 Over the last 2 weeks, how often have you been bothered by any of the following problems? 1. Little interest or pleasure in doing things: not at all 2. Feeling down, depressed, or hopeless: not at all 3. Trouble falling or staying asleep, or sleeping too much: not at all 4. Feeling tired or having little energy: not at all 5. Poor appetite or overeating: not at all 6. Feeling bad about yourself - or that you are a failure or have let yourself or your family down: not at all 7. Trouble concentrating on things, such as reading the newspaper or watching television: not at all 8. Moving or speaking so slowly that other people could have noticed. Or the opposite - being so fidgety or restless that you have been moving around a lot more than usual: not at all 9. Thoughts that you would be better off or of hurting yourself in some way: not at all Total score: 0 Depression Screening Interpretation: Negative Depression Screening Done: Yes 84183 - PHQ-9 Billing: Yes Source: Developed by Drs. Grover Matta, Mary Gutierrez, Cornelio Oakley and colleagues, with an educational ant from [employer]. Thrive Questionnaire Date Thrive assessed: 03/22/25 What is your living situation today?: I have a steady place to live Within the past 12 months, did the food you bought not last and you didn't have the money to get more?: Often true Within the past 12 months, did you worry whether your food would run out before you got money to buy more?: Often true Do you have trouble paying for medicines?: No Do you have trouble getting transportation to medical appointments?: No Do you have trouble paying your heating and electricity bill?: No Do you have trouble taking care of your child, family member or friend?: No Do you have trouble with day-to-day activities such as bathing, preparing meals, shopping, managing finances, etc.?: No Are you currently unemployed and looking for a job?: No Are you interested in more education?: No Currently or been in a relationship where the following occur: I choose not to answer THRIVE Score: 2 AUDIT C Alcohol Use Questionnaire (AUDIT-C) 1. How often do you have a drink containing alcohol?: Monthly or less 2. How many drinks containing alcohol do you have on a typical day when you are drinking?: 1 or 2 3. How often do you have six or more drinks on one occasion?: Less than monthly Total Score: 2 Score Reviewed/Action Taken: No CHERRIE-7 AMB Questionnaire CHERRIE-7 Date CHERRIE - 7 assessed: 03/22/25 Source: Developed by Drs. Grover Matta, Mary Gutierrez, Cornelio Oakley and colleagues, with an educational ant from [employer]. Review of Systems Const All systems reviewed & are unremarkable except as noted in HPI and below Card Denies chest pain at rest, Denies chest pain with activity, Denies edema, Denies irregular heart rhythm, Denies claudication, Denies dyspnea, Denies dyspnea on exertion, Denies orthopnea, Denies paroxysmal nocturnal dyspnea and Denies slow heart rate Resp Denies cough, Denies dyspnea and Denies dyspnea on exertion Physical exam (Primary Care) Vital Signs: Last Vital Signs Temp 96.9 F 03/22/25 14:36 Pulse 99 03/22/25 14:36 Resp 16 03/22/25 14:36 Pulse Ox 99 03/22/25 14:36 Oxygen Delivery Method Room Air 03/22/25 14:36 BMI result Body Mass Index 34.9 BMI Assessment/Plan discussion: High BMI High, discussed plan: lifestyle, weight reduction, dietary and physical activity Tobacco/Smoking Status: Tobacco use Status Tobacco use date assessed 03/22/25 03/22/25 14:46 Patient Tobacco Use Status Current everyday Tobacco 03/22/25 14:46 Tobacco use type Cigarette 03/22/25 14:46 e-Cigarette/Vaping Use Never Used 03/22/25 14:46 PHQ-9: PHQ-9 Score PHQ-9: Total score 0 03/22/25 14:51 Depression Screening Interpretation: Negative Thrive Assessment: Date of Thrive Assessment Date Thrive assessed 03/22/25 03/22/25 14:46 Currently or been in a relationship where the following occur: I choose not to answer HENIN Head: Yes normal to inspection, Yes normocephalic and Yes atraumatic Ears: external ears normal Eyes General: appearance normal, both eyes and all related structures Eyelids: Yes eyelids normal Conjunctivae: conjunctivae normal Neck Neck: Yes normal visual inspection and Yes supple Resp Effort & Inspection: normal respiratory effort Auscultation: clear to auscultation bilaterally Cardio Jugular venous distension: no JVD Rate: regular rate Rhythm: regular rhythm Heart sounds: S1 normal heart sound present and S2 normal heart sound present GI Inspection: Yes normal to inspection Palpation (GI): Soft to palpation and nontender Auscultation: normal bowel sounds Skin General skin exam: no rashes or lesions noted Neuro General: no focal motor deficits Extrem General: Yes full ROM Psych Appearance: grossly normal Coding Level of Care Code Est Pt Level 3 (37163) Est Pt Prev Care 40-64y(58540) Diagnoses Physical exam Z00.00 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 I63.321 Cerebral infarction mechanism: thrombosis Precerebral and cerebral artery: anterior cerebral artery Laterality of affected vessel: right 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 I50.20; I51.4 Blurry vision H53.8 Insomnia G47.00 Additional Codes PHQ-9 - 72006 - PHQ-9 Billing: Yes ([id number]) Time Spent (min) 34 Assessment & Plan Assessment & Plan (1) Physical exam: Code(s): Z00.00 - Encounter for general adult medical examination without abnormal findings Category: Medical (2) Cerebral infarction: Code(s): I63.9 - Cerebral infarction, unspecified Category: Medical Qualifiers: Cerebral infarction mechanism: thrombosis Precerebral and cerebral artery: anterior cerebral artery Laterality of affected vessel: right Qualified Code(s): I63.321 - 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 Cologuard ordered. EKG, labs and echocardiogram ordered. Increase amlodipine to 10 mg. Recheck blood pressure in 3 weeks by nurse navigator. Referred to Ophthalmology for blurry vision. Start mirtazapine for insomnia. Patient not able to work. Orders: Orders Thyroid Stimulating Hormone Today R79.89 - Other specified abnormal findings of blood chemistry Free T4 (Free Thyroxine) Today R79.89 - Other specified abnormal findings of blood chemistry ECG 12 lead EKG Today I42.9 - Cardiomyopathy, unspecified CA echo transthoracic complete Today I42.9 - Cardiomyopathy, unspecified Complete Blood Count Auto Diff Today D63.8 - Anemia in other chronic diseases classified elsewhere, D64.9 - Anemia, unspecified IRON PROFILE Today D63.8 - Anemia in other chronic diseases classified elsewhere, D64.9 - Anemia, unspecified Vitamin D 25-OH Total Today E55.9 - Vitamin D deficiency, unspecified Comprehensive [place]. Panel Fast Today I42.9 - Cardiomyopathy, unspecified NT Pro B Type Natriuretic Pept Today I42.9 - Cardiomyopathy, unspecified Referrals Ophthalmology Referral H53.8 - Other visual disturbances Cologuard Test Z12.11 - Encounter for screening for malignant neoplasm of colon, Z12.12 - Encounter for screening for malignant neoplasm of rectum Medications: New amlodipine 10 mg PO DAILY 90 tabs 3RF 90 days mirtazapine 15 mg PO BEDTIME 30 tabs 0RF 30 days G47.00 - Insomnia, unspecified Discontinued amlodipine Discontinued Reason: Patient Completed Course 5 mg PO DAILY 90 days 90 tabs 1RF
--- OUTSIDE RECORDS SUMMARY | 2025-03-22 15:44 | XMS_ITS | Clinical Summary ---
Author Organization [facility] Address [address] [facility] [facility] [address] [place] [id number] Phone Care Team Providers Care Occupational Therapist Name Role Phone Lazara Cohn MD Primary Care Provid er Allergies No known active allergies Medications sacubitril/valsa rtan (ENTRESTO ORAL) Take by mouth. Active dapagliflozin propanediol (FARXIGA ORAL) Take by mouth. Active CARVEDILOL ORAL Take by mouth. Active amLODIPine (NORVASC) 5 MG tablet Take 1 tablet (5 mg total) by mouth daily. 30 tablet 2 02/14/2025 Active aspirin 81 MG EC tablet Take 1 tablet (81 mg total) by mouth daily. 30 tablet 2 02/14/2025 Active Encounters Date Type Department Care Team Description 02/14/2025 6:05 PM EST Ancillary Procedure [address] [address] Elijah Broussard MD 02/14/2025 4:26 PM EST - 02/14/2025 11:49 PM EST Emergency [facility] [address] [place] [id number] Elijah Broussard MD Discharge Disposition: Home or Self Care from Last 3 Months Social History Tobacco Use Types Packs/Day Years Used Date Smoking Tobacco: Never Assessed Education Answer Date Recorded Are you interested in more education? Not on samantha e 02/14/2025 Are you concerned about learning? Not on file 02/14/2025 No 02/14/2025 No 02/14/2025 Digital Access Answer Date Recorded No 02/14/2025 No 02/14/2025 Reliable internet access at home? Not on file 02/14/2025 Device with a working camera? Not on file Intimate Partner Violence Answer Date R ecorded Are you denied basic needs s uch as food, clothing, or medical care? No 02/14/2025 In the past 12 months have y ou been in a relationship with a person who hurts, threatens, or tries to control you? No 02/14/2025 Are you denied basic needs s uch as food, clothing, or medical care? No 02/14/2025 In the past 12 months have y ou been in a relationship with a person who hurts, threatens, or tries to control you? No 02/14/2025 Sex and Gender Information Value Date Recorded Sex Assigned at Male 02/14/2025 2:42 PM EST Legal Sex Male 2:36 PM EST Gender Identity Male 02/14/2025 2:42 PM EST Sexual Orientation Not on file Last Filed Vital Signs Vital Sign Reading Time Taken Comments Blood Pressure 156/122 02/14/2025 7:13 PM EST Pulse 73 02/14/2025 7:13 PM EST Temperature 36.9 C (98.4 F) 02/14/2025 2:40 PM EST Respiratory Rate 18 02/14/2025 7:13 PM EST Oxygen Saturation 99% 02/14/2025 7:13 PM EST Inhaled Oxygen Concentration - - Weight 114.1 kg (251 lb 8 oz) 02/14/2025 2:40 PM EST Height 182.9 cm (6') 02/14/2025 2:40 PM EST Body Mass Index 34.11 02/14/2025 2:40 PM EST Plan of Treatment Health Maintenance Due Date Last Done Comments Adult Td,Tdap Booster 1977 LIPID PANEL 1977 DEPRESSION SCREENING 1989 SMOKING Hx and SMOKELESS TOB ACCO SCREENING 1990 HEPATITIS C SCREENING 12/14/1995 HIV ONE-TIME SCREENING (18-6 5 YEARS) 12/14/1995 COLOGUARD 2022 COLONOSCOPY 2022 COLORECTAL CANCER SCREENING 2022 FIT TEST 2022 FOBT 2022 SIGMOIDOSCOPY 2022 VIRTUAL COLONOSCOPY 2022 INFLUENZA VACCINE (#1) 2024 COVID-19 VACCINE ( - 2024-2 6 season) 2024 SCREENING FOR DIABETES 02/15/2028 02/14/2025 HEPATITIS A VACCINES Aged Out No long er eligible based on patient's age to complete this topic HIB VACCINES Aged Out No longer eligi ble based on patient's age to complete this topic MENINGOCOCCAL VACCINES (ACWY) Aged Out No longer eligible based on patient's age to complete this topic MENINGOCOCCAL VACCINES (B) Aged Out N o longer eligible based on patient's age to complete this topic PNEUMOCOCCAL VACCINES (0-49 years) Aged Out No longer eligible based on patient's age to complete this topic Medical Devices Not on file Procedures Procedure Name Priority Date/Time Associated Diagnosis Comments POCT GLUCOSE STAT 02/14/2025 7:10 PM EST US BEDSIDE Routine 02/14/2025 6:04 PM EST ECG 12-LEAD STAT 02/14/2025 5:13 PM EST from Last 3 Months Results * POCT Glucose (02/14/2025 7:10 PM EST) Glucose 89 70 - 99 mg/dL 02/14/2025 7:16 PM EST [facility] Blood (Blood) 02/14/2025 7:1 0 PM EST 02/14/2025 7:16 PM EST us Elijah Broussard MD LAB POCT DOCKED DEVICE UNSOLICTED RESULTS Final Result [facility] [address] [place] [address] * US BEDSIDE (02/14/2025 6:04 PM EST) Anatomical Region Laterality Modality Ultrasound Narrative 02/14/2025 6:04 PM EST Elijah Broussard MD 02/14/2025 7:22 PM Bedside Ultrasound Date/Time: 02/14/2025 6:04 PM Performed by: Elijah Broussard MD Authorized by: Elijah Broussard MD Exam Type: Ocular Ocular Exam Findings & Impression: Indications: patient with visual change Views: Right eye and left eye Right Eye: Evidence of Retinal Detachment: the right eye was visualized and evidence of retinal detachement was not present Right Eye: Vitreous Hemorrhage: the right eye was visualized and negative for vitreous hemorrhage Right Eye: Abnormal Optic Nerve: the right eye was visualized and was negative for an abnormal optic nerve Left Eye: Evidence of Retinal Detachment: the left eye was visualized and evidence of retinal detachement was not present Left Eye: Vitreous Hemorrhage: the left eye was visualized and negative for vitreous hemorrhage Left Eye: Abnormal Optic Nerve: the left eye was visualized and was negative for an abnormal optic nerve Overall Impression: negative Images: Images Saved: Yes Accession Number: [id number] us Elijah Broussard MD IMG POINT OF CARE EXAMS Final Result * ECG 12-LEAD (02/14/2025 5:13 PM EST) Pathologist [facility] Ventricular Rate EKG/MIN 89 BPM [facility] Atrial Rate 89 BPM [facility] OK Interval 192 ms [facility] QRS Duration 92 ms [facility] QT Interval 390 ms [facility] QTC Interval 474 ms [facility] P [place] 52 degrees [facility] R Wave [place] 4 degrees [facility] T Wave [place] 210 degrees [facility] 02/14/2025 5:13 PM EST 02/15/2025 2:05 PM EST Narrative [facility] - 02/15/2025 2:05 PM EST Normal sinus rhythm Possible Left atrial enlargement ST & T wave abnormality, consider inferolateral ischemia Prolonged QT Abnormal ECG No previous ECGs available Confirmed by Hardik Lai ([id number]) on 02/15/2025 2:05:26 PM us Elijah Broussard MD ECG ORDERABLES F inal Result [facility] from Last 3 Months Insurance [facility] Care Teams Occupational Therapist Relationship Specialty Start Date End Date Lazara Cohn MD [address] [place] [address] PCP - General Internal Medicine 02/14/25 Additional Source Comments The information contained in this document represents components of the legal health record. It is not the complete legal health record.[facility]
== END 2025-03-22 15:07 | disposition home or self-care (01) ==
LOC: HO.HMCH 14:28
PROVIDERS: PCP Internal Medicine; Visit Provider Internal Medicine
DX: Z00.00 Encounter for general adult medical examination without abnormal findings (principal); I63.321 Cerebral infarction due to thrombosis of right anterior cerebral artery; I50.22 Chronic systolic (congestive) heart failure; I51.4 Myocarditis, unspecified; H53.8 Other visual disturbances; G47.00 Insomnia, unspecified

== ENCOUNTER → 2025-03-22 14:27 | Outpatient (BNVA) | payer OTHER, SELFPAY | PROVIDERS: PCP Internal Medicine; Visit Provider Internal Medicine | DX: Z00.00 Encounter for general adult medical examination without abnormal findings (principal); I63.321 Cerebral infarction due to thrombosis of right anterior cerebral artery; I50.20 Unspecified systolic (congestive) heart failure; I51.4 Myocarditis, unspecified; H53.8 Other visual disturbances; G47.00 Insomnia, unspecified; D64.9 Anemia, unspecified; R79.89 Other specified abnormal findings of blood chemistry; Z13.31 Encounter for screening for depression | CPT/HCPCS: 96127; 99212; 99396 ==